=== PATIENT | male | born 1970 | race Caucasian/White ===

== ENCOUNTER → 2017-09-09 08:28 | Outpatient (CLI) | payer OTHER, SELFPAY | PROVIDERS: Family Provider Family Medicine; PCP Family Medicine; Visit Provider Family Medicine | DX: E11.9 Type 2 diabetes mellitus without complications (principal) | CPT/HCPCS: 36415; 84403 ==

== ENCOUNTER → 2017-10-12 07:14 | Outpatient (CLI) | payer OTHER, SELFPAY ==
[2017-10-12 08:35] LABS: Absolute Lymphocyte Count 2.59 X10^3/ul (0.83-4.51); Absolute Neutrophil Count 2.6 X10^3/uL (2.0-7.7); Basophil# 0.03 X10^3/uL; Basophil% 0.5 % (0-1); Eosinophil# 0.23 X10^3/uL; Eosinophils% 3.7 % (0-5); Hematocrit 47.4 % (40-54); Hemoglobin 15.9 g/dl (13.0-16.5); Lymphocyte # 2.59 X10^3/ul (4.0); Mean Corp Hgb Conc 33.5 g/gl (32-36); Mean Corpuscular Hgb 34.6 pg (27.0-32.0); Mean Platelet Vol. 9.9 fl (6.2-12.0); Monocyte# 0.68 X10^3/uL; Neutrophil % 42.3 % (47-70); Platelet Count 186 K/mm3 (150-450); RBC Distribution Width CV 13.4 % (11.6-14.6); RBC Distribution Width SD 49.8 fl (35.1-43.9); White Blood Count 6.2 K/mm3 (4.4-11.0)
[2017-10-12 09:00] LABS: POSITIVE COUNT NO; POSITIVE DIFFERENTIAL NO; POSITIVE MORPHOLOGY NO
[2017-10-12 09:11] LABS: ALB/GLOB Ratio 0.9 RATIO (0.9-2.4); AST(SGOT) 21 U/L (15-37); Alanine Aminotransfer ALT/SGPT 28 U/L (16-61); Albumin, Serum 3.5 g/dL (3.2-5.0); Alkaline Phosphatase 67 U/L (45-117); Anion Gap 6 (5-15); BUN 15 mg/dL (7-18); BUN/Creat Ratio 12.3 RATIO (10-20); Bilirubin, Direct 0.19 mg/dL (0.00-0.30); Calcium,Total 8.4 mg/dL (8.5-10.1); Chloride 100 mmol/L (98-107); Cholesterol 245 mg/dL (200); Creatinine, Serum 1.22 mg/dL (0.70-1.30); EST Glomerular Filtration Rate 67 mL/min (>60); Est Glom Filt Rate - Afr Amer 81 mL/min (>60); Globulin 3.8 g/dL (2.2-4.2); Glucose 144 mg/dL (74-106); High Density Lipoprotein 55 mg/dL; Potassium 4.3 mmol/L (3.5-5.1); Protein, Total 7.3 g/dL (6.4-8.2); Sodium Level 137 mmol/L (136-145); Triglycerides 205 mg/dL; Very Low Density Lipoprotein 41 mg/dL (5-40)
[2017-10-12 09:29] LABS: Microalbumin,Random Urine 11.2 mg/L (NO RANGE EST.); Microalbumin:Creatinine Ratio 5.3 mg/g CRE (<30 mg/g CRE)
== END ==
PROVIDERS: Family Provider Family Medicine; PCP Family Medicine; Visit Provider Family Medicine
DX: E11.9 Type 2 diabetes mellitus without complications (principal); L40.59 Other psoriatic arthropathy; Z79.899 Other long term (current) drug therapy; L40.8 Other psoriasis; M25.541 Pain in joints of right hand; M19.071 Primary osteoarthritis, right ankle and foot; K21.9 Gastro-esophageal reflux disease without esophagitis; F41.9 Anxiety disorder, unspecified
CPT/HCPCS: 36415; 80053; 80061; 82043; 82248; 82570; 84403; 85025

== ENCOUNTER → 2017-10-24 09:07 | Outpatient (CLI) | payer OTHER, SELFPAY | PROVIDERS: Family Provider Family Medicine; PCP Family Medicine; Visit Provider Family Medicine | DX: E29.1 Testicular hypofunction (principal) | CPT/HCPCS: 36415; 84403 ==

== ENCOUNTER → 2018-04-28 16:55 | Outpatient (CLI) | payer OTHER, SELFPAY ==
[2018-04-28 18:48] LABS: AST(SGOT) 17 U/L (15-37); Alanine Aminotransfer ALT/SGPT 24 U/L (16-61); Albumin, Serum 3.9 g/dL (3.2-5.0); Alkaline Phosphatase 75 U/L (45-117); Anion Gap 7 (5-15); BUN 13 mg/dL (7-18); BUN/Creat Ratio 12.4 RATIO (10-20); Bilirubin, Direct 0.21 mg/dL (0.00-0.30); Calcium,Total 9.2 mg/dL (8.5-10.1); Chloride 104 mmol/L (98-107); Cholesterol 175 mg/dL (200); Creatinine, Serum 1.05 mg/dL (0.70-1.30); EST Glomerular Filtration Rate 80 mL/min (>60); Est Glom Filt Rate - Afr Amer 96 mL/min (>60); Globulin 4.1 g/dL (2.2-4.2); Glucose 120 mg/dL (74-106); High Density Lipoprotein 63 mg/dL; Potassium 4.6 mmol/L (3.5-5.1); Sodium Level 139 mmol/L (136-145); Triglycerides 98 mg/dL
[2018-04-28 18:49] LABS: Very Low Density Lipoprotein 20 mg/dL (5-40)
== END ==
PROVIDERS: Family Provider Family Medicine; PCP Family Medicine; Visit Provider Family Medicine
DX: E11.9 Type 2 diabetes mellitus without complications (principal); E29.1 Testicular hypofunction
CPT/HCPCS: 36415; 80048; 80061; 80076; 84403

== ENCOUNTER → 2018-08-29 15:11 | Outpatient (CLI) | payer OTHER, SELFPAY ==
[2018-05-22 15:51] VITALS: BMI 28.5
== END ==
PROVIDERS: Family Provider Family Medicine; PCP Family Medicine; Referring Provider Otolaryngology; Visit Provider Otolaryngology
DX: J32.9 Chronic sinusitis, unspecified (principal)
CPT/HCPCS: 87070; 87205

== ENCOUNTER → 2019-02-02 09:24 | Outpatient (CLI) | payer OTHER, SELFPAY ==
[2018-12-07 14:49] VITALS: BMI 28.8
[2019-02-02 10:39] LABS: Microalbumin,Random Urine 5.3 mg/L (NO RANGE EST.)
[2019-02-02 10:57] LABS: AST(SGOT) 18 U/L (15-37); Alanine Aminotransfer ALT/SGPT 21 U/L (16-61); Albumin, Serum 3.4 g/dL (3.2-5.0); Alkaline Phosphatase 74 U/L (45-117); Anion Gap 4 (5-15); BUN 12 mg/dL (7-18); BUN/Creat Ratio 11.2 RATIO (10-20); Bilirubin, Direct 0.19 mg/dL (0.00-0.30); Calcium,Total 8.1 mg/dL (8.5-10.1); Chloride 107 mmol/L (98-107); Cholesterol 204 mg/dL (200); Creatinine, Serum 1.07 mg/dL (0.70-1.30); EST Glomerular Filtration Rate 78 mL/min (>60); Est Glom Filt Rate - Afr Amer 94 mL/min (>60); Globulin 3.5 g/dL (2.2-4.2); Glucose 135 mg/dL (74-106); High Density Lipoprotein 52 mg/dL; Potassium 3.9 mmol/L (3.5-5.1); Protein, Total 6.9 g/dL (6.4-8.2); Sodium Level 139 mmol/L (136-145); Triglycerides 129 mg/dL; Very Low Density Lipoprotein 26 mg/dL (5-40)
[2019-02-07 04:09] LABS: Alternaria tenuis <0.10 kU/L (Class 0); Ash, White <0.10 kU/L (Class 0); Aspergillus fumigatus <0.10 kU/L (Class 0); Bermuda Grass <0.10 kU/L (Class 0); Birch <0.10 kU/L (Class 0); Black Walnut 0.12 kU/L (Class 0/I); Cat Hair / Dander,Stand <0.10 kU/L (Class 0); Cedar, Mountain <0.10 kU/L (Class 0); Cladosporium herbarum <0.10 kU/L (Class 0); Cockroach, American <0.10 kU/L (Class 0); D farinae Mite <0.10 kU/L (Class 0); D pteronyssinus <0.10 kU/L (Class 0); Dog Epithelia <0.10 kU/L (Class 0); Elm, American White 0.13 kU/L (Class 0/I); Immunoglobulin E 23 IU/mL (6-495); Maple/Box Elder <0.10 kU/L (Class 0); Mulberry, White <0.10 kU/L (Class 0); Oak, White <0.10 kU/L (Class 0); Pecan <0.10 kU/L (Class 0); Penicillium Notatum <0.10 kU/L (Class 0); Pigweed, Rough <0.10 kU/L (Class 0); Ragweed, Short/Common <0.10 kU/L (Class 0); Russian Thistle <0.10 kU/L (Class 0); Sheep Sorrel <0.10 kU/L (Class 0); Sycamore, American <0.10 kU/L (Class 0); Timothy Grass <0.10 kU/L (Class 0)
[2019-02-07 11:15] LABS: Mouse Urine <0.10 kU/L (Class 0)
== END ==
PROVIDERS: Family Provider Family Medicine; PCP Family Medicine; Referring Provider Family Medicine; Visit Provider Family Medicine
DX: E11.9 Type 2 diabetes mellitus without complications (principal); J30.2 Other seasonal allergic rhinitis
CPT/HCPCS: 36415; 80048; 80061; 80076; 82043; 82570; 82785; 86003

== ENCOUNTER → 2019-07-12 20:22 | Outpatient (CLI) | payer OTHER, SELFPAY ==
[2018-12-07 14:49] VITALS: BMI 28.8
== END ==
PROVIDERS: Family Provider Family Medicine; PCP Family Medicine; Referring Provider Family Medicine; Visit Provider Family Medicine
DX: G47.30 Sleep apnea, unspecified (principal)
CPT/HCPCS: 95811

== ENCOUNTER → 2019-07-19 15:02 | Outpatient (CLI) | payer OTHER, SELFPAY ==
[2019-07-02 13:28] VITALS: BMI 28.2
[2019-07-19 14:19] VITALS: BMI 28.2
== END ==
PROVIDERS: Family Provider Family Medicine; PCP Family Medicine; Referring Provider Internal Medicine Cardiovascular Disease; Visit Provider Internal Medicine Cardiovascular Disease
DX: R07.9 Chest pain, unspecified (principal); E11.9 Type 2 diabetes mellitus without complications; E78.5 Hyperlipidemia, unspecified; I10 Essential (primary) hypertension
CPT/HCPCS: 93306; Q9957; A4216; C8929

== ENCOUNTER → 2019-07-30 09:16 | Outpatient (CLI) | payer OTHER, SELFPAY ==
[2019-07-02 13:28] VITALS: BMI 28.2
[2019-07-19 14:19] VITALS: BMI 28.2
--- NOTE | 2019-07-30 09:25 | STEWCON_ITS ---
Reason For Study: CHEST PAIN Stress Results Protocol: Stress Echocardiogram Maximum Predicted HR: 170 bpm Target HR: 145 bpm % Maximum Predicted HR: 96 % Heart Stage Duration Rate BP Comment (mm:ss) (bpm) 3 CC DILUTED DEFINITY USED, PT STATES IT IS CONSTANTLY BASELINE 68 124/80SORE AROUND L BREAST AREA LUIS PROTOCOL- STAGE 1 3:00 92 126/78NO SX LUIS PROTOCOL- STAGE 2 3:00 108 140/80NO SX LUIS PROTOCOL- STAGE 3 3:00 123 142/78SL SOB LUIS PROTOCOL- STAGE 4 3:00 164 150/82DYSPNEA, SORENESS IN CHEST UNCHANGED THRUOUT STRESS ECHO RECOVERY 88 130/82DYSPNEA RESOLVED, SORENESS REMAINS THE SAME Stress Duration: 12:00 mm:ss Maximum Stress HR: 164 bpm Baseline Echocardiogram Findings The estimated ejection fraction is 65 %. Stress Echo Wall motion Data Resting WM Intermediate WM Stress WM Resting Wall Motion Wall Motion Stress No regional wall motion No regional wall motion abnormalities noted. abnormalities noted. EKG Data The baseline ECG displays normal sinus rhythm. The patient exercised according to the regular Luis protocol for a total duration of 12:02. The maximum heart rate attained was 164 beats per minute. This was 96% of maximum predicted heart rate. The patient exercised into stage 5 of the Luis protocol. During stress, there were no ST or T wave changes noted to suggest ischemia. No clinical angina was noted. No arrhythmias noted. Interpretation Summary The estimated ejection fraction is 65 %. Normal, adequate, treadmill echocardiogram. Negative for ischemia by EKG and echocardiographic criteria. No anginal symptoms noted. No arrhythmias noted. Appropriate blood pressure response to exercise. Average exercise capacity for age. Test terminated due to dyspnea. Final LVEF is 75%. Decreased sensitivity due to poor echo windows requiring Definity agent. Patient tolerated the procedure well. No complications. The study was technically difficult. Contrast injection was performed. Ordering Physician: Chi Win MD Referring Physician: Chi Win Performed By: Laina Escalera RDCS, RVT
== END ==
PROVIDERS: Family Provider Family Medicine; PCP Family Medicine; Referring Provider Internal Medicine Cardiovascular Disease; Visit Provider Internal Medicine Cardiovascular Disease
DX: R07.9 Chest pain, unspecified (principal); I10 Essential (primary) hypertension; E78.5 Hyperlipidemia, unspecified; E11.9 Type 2 diabetes mellitus without complications
CPT/HCPCS: 93017; 93350; Q9957; A4216; C8928

== ENCOUNTER → 2019-08-13 08:10 | Outpatient (CLI) | payer OTHER, SELFPAY ==
[2019-07-19 14:19] VITALS: BMI 28.2
== END ==
PROVIDERS: PCP Family Medicine; Referring Provider Otolaryngology Otolaryngology/Facial Plastic Surgery; Visit Provider Otolaryngology Otolaryngology/Facial Plastic Surgery
DX: J01.90 Acute sinusitis, unspecified (principal)
CPT/HCPCS: 87070; 87205

== ENCOUNTER → 2019-10-12 10:51 | Outpatient (CLI) | payer OTHER, SELFPAY ==
[2019-08-31 08:41] VITALS: BMI 28.8
--- NOTE | 2019-10-12 10:54 | RAD_ITS ---
STUDY: X-RAY - RIGHT HAND REASON FOR EXAM: Male, 48 years old. Right hand pain and swelling -- no injury TECHNIQUE: 3 view(s) of the hand. COMPARISON: None. FINDINGS: Normal radiocarpal articulation. Normal distal radioulnar joint. Normal visualized carpal bones. Normal carpal articulations Normal carpometacarpal articulation of the thumb. Normal second through fifth carpometacarpal joints. Normal metacarpi. Degenerative changes at the second and third metacarpophalangeal joints. Normal interphalangeal joint of the thumb. Normal proximal and distal phalanges of the thumb. Normal metacarpophalangeal joints of the second through fifth fingers. Normal proximal and distal interphalangeal joints of the second through fifth fingers. Normal phalanges of the second through fifth fingers. Dorsal soft tissue swelling. RAD/Hand Min 3 Views IMPRESSION: Dorsal soft tissue swelling. Degenerative changes at the second and third metacarpal phalangeal joints. Electronically Signed: Herman Abdalla, at 11:06 EDT , Service support ,
[2019-10-12 12:45] LABS: Anion Gap 9 (5-15); BUN 13 mg/dL (7-18); BUN/Creat Ratio 12.7 RATIO (10-20); Calcium,Total 8.6 mg/dL (8.5-10.1); Chloride 106 mmol/L (98-107); Creatinine, Serum 1.02 mg/dL (0.70-1.30); EST Glomerular Filtration Rate 82 mL/min (>60); Est Glom Filt Rate - Afr Amer 99 mL/min (>60); Glucose 212 mg/dL (74-106); Potassium 3.6 mmol/L (3.5-5.1); Sodium Level 138 mmol/L (136-145)
== END ==
PROVIDERS: PCP Family Medicine; Referring Provider Family Medicine; Visit Provider Family Medicine
DX: M79.641 Pain in right hand (principal)
CPT/HCPCS: 36415; 73130; 80048; 84550

== ENCOUNTER → 2020-02-07 08:12 | Outpatient (CLI) | payer OTHER, SELFPAY ==
[2019-10-22 13:23] VITALS: BMI 28.8
--- NOTE | 2020-02-07 08:17 | RAD_ITS ---
STUDY: X-RAY - ABDOMEN/PELVIS REASON FOR EXAM: Male, 49 years old. ABD PAIN X 1 MONTH. HX OF IBS TECHNIQUE: AP supine and upright views of the abdomen and pelvis. COMPARISON: None. FINDINGS: Normal visualized lung bases. There is a moderate amount of colonic fecal material. There is no demonstrated free abdominal air. The visualized liver, spleen and kidneys are grossly normal in size and morphology. There is a 1 cm x 1 cm rounded calcification in the left upper quadrant. On prior CT scan of the abdomen, this is seen within the anterior pericardial fat on the left side. There is also evidence of a 1 cm well-defined calcification overlying the left 12th costovertebral angle.. Normal visualized osseous structures. RAD/Abd Inc Decub and/or Erect IMPRESSION: Moderate amount of fecal material is seen in the colon. Electronically Signed: Herman Abdalla, at 9:24 EDT , Service support ,
== END ==
PROVIDERS: PCP Family Medicine; Referring Provider Family Medicine; Visit Provider Family Medicine
DX: R10.9 Unspecified abdominal pain (principal)
CPT/HCPCS: 74019

== ENCOUNTER → 2020-02-11 08:53 | Outpatient (CLI) | payer OTHER, SELFPAY ==
[2019-10-22 13:23] VITALS: BMI 28.8
[2020-02-11 10:27] LABS: Anion Gap 4 (5-15); BUN 9 mg/dL (7-18); BUN/Creat Ratio 8.1 RATIO (10-20); Calcium,Total 8.2 mg/dL (8.5-10.1); Chloride 105 mmol/L (98-107); Cholesterol 222 mg/dL (200); Creatinine, Serum 1.11 mg/dL (0.70-1.30); EST Glomerular Filtration Rate 74 mL/min (>60); Est Glom Filt Rate - Afr Amer 90 mL/min (>60); Glucose 194 mg/dL (74-106); High Density Lipoprotein 55 mg/dL; Potassium 3.9 mmol/L (3.5-5.1); Sodium Level 139 mmol/L (136-145); Triglycerides 201 mg/dL; Very Low Density Lipoprotein 40 mg/dL (5-40)
== END ==
PROVIDERS: PCP Family Medicine; Referring Provider Family Medicine; Visit Provider Family Medicine
DX: E11.9 Type 2 diabetes mellitus without complications (principal)
CPT/HCPCS: 36415; 80048; 80061

== ENCOUNTER → 2020-05-21 17:47 | Outpatient (CLI) | payer OTHER, SELFPAY ==
[2020-05-14 14:59] VITALS: BMI 28.7
== END ==
PROVIDERS: PCP Family Medicine; Referring Provider Family Medicine; Visit Provider Family Medicine
DX: Z20.828 Contact with and (suspected) exposure to other viral communicable diseases (principal)
CPT/HCPCS: 87635; U0003

== ENCOUNTER → 2020-06-09 16:49 | Outpatient (CLI) | payer OTHER, SELFPAY ==
[2020-05-14 14:59] VITALS: BMI 28.7
== END ==
PROVIDERS: PCP Family Medicine; Referring Provider Otolaryngology; Visit Provider Otolaryngology
DX: J02.9 Acute pharyngitis, unspecified (principal)
CPT/HCPCS: 87070

== ENCOUNTER 2020-06-21 14:16 | Emergency (ER) | payer OTHER, SELFPAY ==
[2020-05-14 14:59] VITALS: BMI 28.7
[2020-06-21 14:17] VITALS: BP 137/91; PULSE 74; RESP 18; TEMP 36.3; O2SAT 100; BMI 27.3
--- NOTE | 2020-06-21 14:37 | EKG12_ITS ---
Test Reason : CP Blood Pressure : / mmHG Vent. Rate : 069 BPM Atrial Rate : 069 BPM P-R Int : 158 ms QRS Dur : 114 ms QT Int : 412 ms P-R-T Axes : 030 -34 000 degrees QTc Int : 441 ms Normal sinus rhythm Left axis deviation Right bundle branch block Abnormal ECG Confirmed by MARIAM PRETTY, JALEESA ([id number]), editor managing newspaper DAVID SUN ([id number]) on 06/30/2020 8:43:56 AM Referred By: SHEILA Confirmed By:RUBA BECERRA MD
--- NOTE | 2020-06-21 14:37 | ED.VIS.GEN ---
History of Present Illness Chief Complaint: Chest Pain Informant: Patient Narrative: 49-year-old male presenting with chest pain. He states that in the left parasternal area. He describes it as aching. He states it hurts to touch and when he takes a deep breath it hurts as well. He denies any fever, cough, chills. There is no radiation of the pain. He states he was lightheaded this morning but he states he is been lightheaded for years. He does not believe there is a change in this. - Past Medical History (1) Right bundle branch block Status: Chronic (2) Right bundle branch block Status: Chronic (3) Hypertension Status: Chronic (4) Hyperlipidemia Status: Chronic (5) Type 2 diabetes mellitus without complications Status: Chronic Past Medical History - Allergies and Home Meds Allergies/Adverse Reactions: Allergies amoxicillin [From Augmentin] Adverse Reaction (Verified 06/21/20 14:17) Diarrhea clavulanic acid [From Augmentin] Adverse Reaction (Verified 06/21/20 14:17) Diarrhea Primary Care Physician: Casey Valles MD [Primary Care Provider] - Prior records reviewed: Yes Past Medical History: - - Reviewed in problem list Surgical History: noncontributory Lives: Spouse/ Significant Other Smoking Status: Never smoker Alcohol: None Drugs: None Review of Systems General: Denies: Chills, Fever, Sweats Eyes: Denies: Visual changes - bilaterally, Diplopia ENT: Denies: Rhinorrhea, Sore throat Cardiovascular: Reports: Chest pain. Denies: Palpitations, Heart racing Respiratory: Denies: Dyspnea, Cough, Dyspnea on exertion Gastrointestinal: Denies: Abdominal pain, Nausea, Vomiting, Diarrhea, Melena, Hematochezia Genitourinary: Denies: Dysuria, Hematuria, Frequency Musculoskeletal: Denies: Back pain, Extremity Pain Skin: Denies: Rash, Wounds Neurological: Reports: - - Lightheadedness. Denies: Headache, Weakness, Numbness Physical Exam Vital Signs/Narrative: Vital Signs Temp Pulse Resp BP Pulse Ox 06/21/20 14:17 97.3 F L 74 18 137/91 H 100 Inital Vital Signs reviewed: Yes General: Well nourished, No Acute Distress Head: Normocephalic, Atraumatic Eyes: Perrl, EOMI ENT: Moist mucous membranes, No rhinorrhea Cardiovascular: Regular rate, Regular rhythm Respiratory: No distress, CTA bilaterally, Chest tenderness - Tenderness to palpation left side of sternum. No rash, ecchymosis, deformity, crepitance. Pain is also reproduced with movement. Extremities: Nontender, No edema Skin: Normal color, No rash, Cyanosis Neurological: Alert, Oriented x3 Psychological: Normal affect, Normal Mood Diagnostic/Tx/Re-eval - Rhythm Strip Rhythm Strip: Sinus Rhythm - EKG Initial EKG Interpretation: Sinus Rhythm, No Acute Injury Pattern, RBBB Prior: Unchanged Follow-up EKG Interpretation: Sinus Rhythm, No Acute Injury Pattern, RBBB Prior: Unchanged - Medical Decision Making 49-year-old male presenting with chest pain. He states that sharp and worse with movements. He has reproducible tenderness as well in the center of his chest. I feel this is most likely costochondritis however the patient has a heart score of three. Initial labs are within normal limits. Troponin is negative. D-dimer is negative. Chest x-ray is interpreted by myself and the radiologist is negative for acute process. EKG is sinus rhythm with a right bundle branch block without any new changes as interpreted by myself. Patient will have delta troponin EKG and if these are normal patient will be sent home. Patient felt much improvement with Toradol. Patient's delta EKG is unchanged as interpreted by myself. Delta troponin is negative. I feel patient is stable to be discharged home at this time. He is given return precautions. Impression: 1. Chest pain 2. Costochondritis ED Disposition - Plan for ED Patient: Disposition: Home or Assisted Living Instructions: ED Chest Wall Pain, Costochondritis, ED Chest Pain, Noncardiac Referrals: Casey Valles MD [Primary Care Provider] -
--- NOTE | 2020-06-21 14:45 | RAD_ITS ---
STUDY: X-RAY CHEST REASON FOR EXAM: Male, 49 years old. chest pain TECHNIQUE: AP COMPARISON: 01/08/2017 FINDINGS: EKG leads project over the chest. Fusion hardware of the lower cervical spine. The lungs are clear and expanded. There is no demonstrated pleural abnormality. Normal size heart. Normal mediastinum and cristina. Normal visualized pulmonary arteries. Normal visualized aortic arch and descending thoracic aorta. Normal visualized thoracic spine. Normal visualized ribs, clavicles, and shoulders. There is no demonstrated abnormality of the visualized soft tissue structures of the upper abdomen. RAD/Chest 1 View (Portable) IMPRESSION: Stable, nonacute portable x-ray examination of the chest. Electronically Signed: Mark Marino MD ([place]) at 14:54 EST , Service support ,
[2020-06-21 14:47] VITALS: BP 138/95; PULSE 72; RESP 23; O2SAT 98
[2020-06-21 14:52] LABS: Absolute Lymphocyte Count 1.48 X10^3/uL (0.83-4.51); Absolute Neutrophil Count 3.4 X10^3/uL (2.0-7.7); Basophil# 0.03 X10^3/uL; Basophil% 0.5 % (0-1); Eosinophil# 0.21 X10^3/uL; Eosinophils% 3.7 % (0-5); Hematocrit 48.9 % (40-54); Hemoglobin 16.3 g/dL (13.0-16.5); Lymphocyte # 1.48 X10^3/ul (4.0); Lymphocyte % 26.2 % (19-41); Mean Corp Hgb Conc 33.3 g/dL (32-36); Mean Corpuscular Hgb 34.2 pg (27.0-32.0); Mean Corpuscular Volume 102.7 fL (80-94); Mean Platelet Vol. 9.8 fl (6.2-12.0); Monocyte# 0.51 X10^3/uL; NRBC Flagged by Analyzer 0 % (0-5); Neutrophil # 3.37 X10^3/uL (2.7-7.7); Neutrophil % 59.7 % (47-70); Platelet Count 245 K/mm3 (150-450); RBC Distribution Width CV 11.9 % (11.6-14.6); RBC Distribution Width SD 45.2 fl (35.1-43.9); Red Blood Count 4.76 M/mm3 (4.6-6.2); White Blood Count 5.7 K/mm3 (4.4-11.0)
[2020-06-21] MEDS: Aspirin 81 MG TAB.CHEW 324 MG PO (14:55)
[2020-06-21 15:08] LABS: D-Dimer Quantitative (DVT/PE) 0.29 FEU/ug/m (0.27-0.49)
[2020-06-21 15:10] LABS: Anion Gap 3 (5-15); BUN 13 mg/dL (7-18); Calcium,Total 8.8 mg/dL (8.5-10.1); Chloride 108 mmol/L (98-107); Creatinine, Serum 1.08 mg/dL (0.70-1.30); EST Glomerular Filtration Rate 76 mL/min (>60); Est Glom Filt Rate - Afr Amer 93 mL/min (>60); Estimated Creatinine Clearance 80.92 ml/min; Glucose 143 mg/dL (74-106); Potassium 3.7 mmol/L (3.5-5.1); Sodium Level 140 mmol/L (136-145)
[2020-06-21 15:41] VITALS: BP 118/90; PULSE 70; RESP 19; O2SAT 95
[2020-06-21 16:05] VITALS: BP 121/95; PULSE 70; RESP 24; O2SAT 95
[2020-06-21] MEDS: Ketorolac 15 MG/ML Vial IM (16:06)
[2020-06-21 17:30] VITALS: BP 128/97; PULSE 65; RESP 22; O2SAT 95
--- NOTE | 2020-06-21 17:30 | EKG12_ITS ---
Test Reason : REPEAT Blood Pressure : / mmHG Vent. Rate : 062 BPM Atrial Rate : 062 BPM P-R Int : 174 ms QRS Dur : 130 ms QT Int : 432 ms P-R-T Axes : 031 -33 002 degrees QTc Int : 438 ms Normal sinus rhythm Left axis deviation Right bundle branch block Abnormal ECG Confirmed by MARIAM PRETTY, JALEESA ([id number]), script editor DAVID SUN ([id number]) on 06/30/2020 8:43:33 AM Referred By: JENNIFER Confirmed By:RUBA BECERRA MD
[2020-06-21 18:13] VITALS: BP 130/98; PULSE 65; RESP 18; O2SAT 94
== END 2020-06-21 18:33 | disposition home or self-care (01) ==
PROVIDERS: Emergency Provider Student in an Organized Health Care Education/Training Program; PCP Family Medicine
DX: R07.9 Chest pain, unspecified (principal); M94.0 Chondrocostal junction syndrome [Tietze]; E11.9 Type 2 diabetes mellitus without complications; E78.5 Hyperlipidemia, unspecified; I10 Essential (primary) hypertension; I45.10 Unspecified right bundle-branch block; Z88.0 Allergy status to penicillin; Z88.1 Allergy status to other antibiotic agents
CPT/HCPCS: 71045; 80048; 84484; 85025; 85379; 93005; 96372; 99283; A4216

== ENCOUNTER → 2020-11-26 14:25 | Outpatient (CLI) | payer OTHER, SELFPAY ==
[2020-11-26 17:39] LABS: Absolute Lymphocyte Count 1.23 X10^3/uL (0.83-4.51); Absolute Neutrophil Count 3.7 X10^3/uL (2.0-7.7); Basophil# 0.03 X10^3/uL; Basophil% 0.5 % (0-1); Eosinophil# 0.12 X10^3/uL; Eosinophils% 2.2 % (0-5); Hematocrit 46.1 % (40-54); Hemoglobin 15.3 g/dL (13.0-16.5); Lymphocyte # 1.23 X10^3/ul (0.83-4.51); Lymphocyte % 22.1 % (19-41); Mean Corp Hgb Conc 33.2 g/dL (32-36); Mean Corpuscular Hgb 33.5 pg (27.0-32.0); Mean Corpuscular Volume 100.9 fL (80-94); Mean Platelet Vol. 10.4 fl (6.2-12.0); NRBC Flagged by Analyzer 0 % (0-5); Neutrophil # 3.66 X10^3/uL (2.7-7.7); Neutrophil % 65.8 % (47-70); Platelet Count 233 K/mm3 (150-450); RBC Distribution Width CV 12.4 % (11.6-14.6); RBC Distribution Width SD 46.3 fl (35.1-43.9); Red Blood Count 4.57 M/mm3 (4.6-6.2); White Blood Count 5.6 K/mm3 (4.4-11.0)
[2020-11-26 18:52] LABS: Anion Gap 10 (5-15); BUN 15 mg/dL (7-18); BUN/Creat Ratio 13.9 RATIO (10-20); Calcium,Total 8.9 mg/dL (8.5-10.1); Chloride 108 mmol/L (98-107); Cholesterol 173 mg/dL (200); Creatinine, Serum 1.08 mg/dL (0.70-1.30); EST Glomerular Filtration Rate 76 mL/min (>60); Est Glom Filt Rate - Afr Amer 92 mL/min (>60); Glucose 182 mg/dL (74-106); High Density Lipoprotein 57 mg/dL; Potassium 3.7 mmol/L (3.5-5.1); Sodium Level 139 mmol/L (136-145); Thyroid Stim Hormone (TSH) 1.18 uIU/mL (0.358-3.74); Triglycerides 194 mg/dL; Very Low Density Lipoprotein 39 mg/dL (5-40)
== END ==
PROVIDERS: PCP Family Medicine; Referring Provider Family Medicine; Visit Provider Family Medicine
DX: E29.1 Testicular hypofunction (principal); E11.9 Type 2 diabetes mellitus without complications; R53.83 Other fatigue
CPT/HCPCS: 36415; 80048; 80061; 84403; 84443; 85025

== ENCOUNTER → 2021-01-16 11:01 | Outpatient (CLI) | payer OTHER, SELFPAY ==
[2020-12-24 05:48] VITALS: BMI 28.0
[2021-01-16 11:42] VITALS: BP 130/83; PULSE 75; RESP 16; TEMP 36.8; O2SAT 100; BMI 28.2
--- NOTE | 2021-01-16 12:05 | CT_ITS ---
STUDY: CT CERVICAL SPINE WITH INTRATHECAL CONTRAST (CERVICAL CT MYELOGRAM) REASON FOR EXAM: Male, 50 years old. Spinal stenosis. Prior anterior fusion at the C5-C6 and C6-C7 levels. RADIATION DOSAGE (If Supplied By Facility): CTDIvol = ( 26.48 ) mGy, DLP = ( 563.74 ) mGycm TECHNIQUE: Transaxial images were obtained following intrathecal administration of 15 ml of ISOVUE-M 300 contrast material, performed by Dr. Abdalla. Please refer to this physicians technical notes for procedural details. Coronal and sagittal reconstructions were obtained. Individualized dose optimization techniques were used for this CT. Injection Information: 15 cc of ISOVUE-M 300. COMPARISON: Comparison is made with prior mammogram done earlier in the day. FINDINGS: Normal craniovertebral junction. Normal anterior atlantoaxial articulation. Normal odontoid process. There is straightening of the normal cervical lordosis. Normal vertebral bodies and posterior osseous elements. C2-3: Mild degree of central disc bulge. Minimal deformity of the thecal sac centrally and anteriorly. No significant stenosis is seen. C3-4: Minimal anterior central disc bulge causing minimal deformity of the thecal sac. No significant stenosis is seen. C4-5: Moderate-sized central disc bulge. This causes a moderate degree of central canal stenosis. Mild degree of left neural foraminal stenosis. C5-6: The patient is status post anterior C5-C6 fusion. Anterior screw fixation is seen. Marked degree of disc space narrowing. Central posterior disc bulge causing deformity of the thecal sac. This is slightly worse towards the left side of the midline. C6-7: Status post anterior fusion. Disc space narrowing. Central posterior disc bulge causing mild degree of central canal stenosis. C7-T1: Normal endplates. Normal disc height and morphology. Normal bilateral uncovertebral and apophyseal joints. Normal central canal and bilateral intervertebral neural foramen. CT/Spine Cervical WITH Contrast IMPRESSION: Prior fusion at the C5-C6 and C6-C7 levels. Moderate degree of central canal stenosis at the C4-C5 level. Electronically Signed: Herman Abdalla MD at 13:25 EDT , Service support ,
--- NOTE | 2021-01-16 12:25 | RAD_ITS ---
PROCEDURE: CERVICAL MYELOGRAM DATE OF EXAMINATION: 01/16/2021. INDICATION: Male, 50 years old. Chronic neck pain. Prior fusion. PHYSICIAN: Herman Abdalla M.D. CONSENT: The patient''s history and physical findings were reviewed. The lumbar myelogram procedure was discussed with the patient prior to signing a consent. SEDATION: Local anesthesia with 3 mL of 1% lidocaine was used. FLUOROSCOPY TIME (if supplied): (2:15) minutes/seconds. Injection Information: 15 cc of ISOVUE-M 300 . Number of images obtained: 5 TECHNIQUE: Digital fluoroscopy was used to identify a safe approach for the cervical myelogram. The back was prepped and draped in usual fashion. Local anesthesia was utilized. Under fluoroscopic guidance a 22-gauge spinal needle was inserted into the spinal canal at the L2-L3 level. Clear spinal fluid was seen. 15 mL of Isovue 300 M was injected into the spinal canal. There is good opacification of the spinal fluid. The nerve root sheaths are asymmetrically identified. There is no extradural defects. The patient is status post anterior fusion at the C5-C6 and C6-C7 levels. RAD/Cervical Myelogram IMPRESSION: Normal lumbar and cervical myelogram. The patient tolerated the procedure well. A CT scan will follow. Electronically Signed: Herman Abdalla MD at 13:09 EDT , Service support ,
[2021-01-16] MEDS: Lidocaine 2% (5ml sdv) 5 ML VIAL.MPF INFILT (12:35)
[2021-01-16 13:00] VITALS: BP 123/85; PULSE 73; RESP 16; O2SAT 98
[2021-01-16 13:45] VITALS: BP 118/64; PULSE 78; RESP 16; O2SAT 100
== END | disposition home or self-care (01) ==
PROVIDERS: PCP Family Medicine; Referring Provider Orthopaedic Surgery; Visit Provider Orthopaedic Surgery
DX: T84.89XA Other specified complication of internal orthopedic prosthetic devices, implants and grafts, initial encounter (principal); M96.0 Pseudarthrosis after fusion or arthrodesis; M48.02 Spinal stenosis, cervical region; Z98.1 Arthrodesis status
CPT/HCPCS: 62302; 72126; Q9967

== ENCOUNTER 2021-04-16 05:14 | Inpatient (IN) | payer OTHER, SELFPAY ==
[2021-04-16] VITALS (14 sets, daily range): BP systolic 106–126; BP diastolic 70–85; PULSE 64–81; RESP 16–24; TEMP 36.7–37.2; O2SAT 86–97; BMI 28.8; BMI 28.0
--- NOTE | 2021-04-16 05:47 | RAD_ITS ---
STUDY: X-RAY CHEST REASON FOR EXAM: Male, 50 years old. dyspnea TECHNIQUE: Single AP portable view of the chest. COMPARISON: 06/21/2020 FINDINGS: Bilateral scattered airspace opacities. Low lung volume. A component of atelectasis left and right lung periphery. There is no demonstrated pleural abnormality. Normal size heart. Normal mediastinum and cristina. Normal visualized pulmonary arteries. Normal visualized aortic arch and descending thoracic aorta. Prior lower cervical fusion. Normal visualized ribs, clavicles, and shoulders. There is no demonstrated abnormality of the visualized soft tissue structures of the upper abdomen. RAD/Chest 1 View (Portable) IMPRESSION: Lateral air space disease/infiltrates. Imaging features can be seen with covid 19 pneumonia, but are nonspecific and may occur with a variety of infectious and noninfectious processes. Electronically Signed: Isabel Lundberg MD at 6:49 EDT , Service support ,
--- NOTE | 2021-04-16 05:48 | ED.VIS.DYS ---
HPI History of Present Illness Chief Complaint: Shortness of Breath Detail of Chief Complaint: Cough and shortness of breath that started 6 days ago Narrative Narrative: Patient presents with cough and shortness of breath x6 days. Patient states that he had gotten his Covid vaccine second dose 6 days ago. Patient complains of fever and body aches. He has had a dry cough. He complains of shortness of breath with activity. He denies any chest pain. 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 Patient has history of diabetes and hypertension and high cholesterol. [facility] Medical History (Updated 04/16/21 @ 07:[address] Kassidy Velazquez, DO) Hyperlipidemia Hypertension Psoriatic arthritis Right bundle branch block Type 2 diabetes mellitus without complications Home Medications omeprazole 40 mg capsule,delayed release 40 mg PO DAILY 05/19/18 [History Last Taken Unknown] metformin 1,000 mg tablet 1,000 mg PO DAILY 30 Days #60 tab 05/22/18 [History Last Taken Unknown] triamcinolone acetonide 55 mcg nasal spray aerosol 2 spray INTRANASAL DAILY PRN 12/07/18 [History Last Taken Unknown] gemfibrozil 600 mg tablet 600 mg PO BID #180 tab 07/02/19 [Rx Last Taken Unknown] pravastatin 20 mg tablet 20 mg PO DAILY #90 tab 07/02/19 [Rx Last Taken Unknown] glimepiride 2 mg tablet 1 mg PO QAM tab 07/18/19 [History Last Taken Unknown] dapagliflozin 10 mg tablet 10 mg PO DAILY tab 05/14/20 [History Last Taken Unknown] pseudoephedrine HCl 240 mg tablet,extended release 24 hr 240 mg PO DAILY PRN tab 05/14/20 [History Last Taken Unknown] losartan 25 mg tablet 25 mg PO DAILY #90 tab 07/21/20 [Rx Last Taken Unknown] Allergy/AdvReac Type Severity Reaction Status Date / Time amoxicillin [From Augmentin] AdvReac Diarrhea Verified 04/16/21 05:17 clavulanic acid AdvReac Diarrhea Verified 04/16/21 05:17 [From Augmentin] Family History Father CAD (coronary artery disease) FROM [place] AGE 65 Mother Diabetes Surgical History History of penile implant (~09/2019) History of sinus surgery Social History Smoking Status: Never smoker alcohol intake: current substance use type: does not use ROS ROS ED Constitutional Constitutional ED: Reports systems reviewed and no addt'l complaints, except as documented; Denies body ache(s), change in weight or chills Eyes Eyes: Denies acute decrease in peripheral vision, change in vision, double vision or loss of vision ENT ENT ED: Reports none and sore throat; Denies ear pain, lip swelling, loss taste/smell, neck pain or otalgia Cardiovascular Cardiovascular: Reports none; Denies abdominal pain, chest pain with activity, leg edema, lightheadedness, palpitations, rapid heart rate or syncope Respiratory/Chest Respiratory/Chest: Reports none, cough and dyspnea; Denies change in mental status, dry cough, hemoptysis, shortness of breath at rest or shortness of breath with exertion Gastrointestinal Gastrointestinal: Reports none; Denies abdominal pain, change in stool character, diarrhea, hematemesis, hematochezia, melena, rectal bleeding or vomiting Genitourinary Genitourinary ED: Reports none; Denies abdominal discomfort, anuria, dysuria, genital pain or polyuria Musculoskeletal Musculoskeletal: Reports none and myalgias; Denies arthralgias, back pain, difficulty walking, extremity pain or muscle weakness Integumentary Reports none; Denies abscess or rash Neurologic Neurologic: Reports none; Denies abnormal gait, confusion, focal weakness, frequent falls, headache(s), loss of vision, numbness, paresthesias, radicular pain, vertigo or weakness Psychiatric Psychiatric: Reports systems reviewed and no addt'l complaints, except as documented and none; Denies behavioral changes, confusion, difficulty concentrating, hallucinations, suicidal ideation, tactile hallucinations or visual hallucinations Endocrine Endocrinology: Denies none, cold intolerance, excessive sweating, fatigue or heat intolerance Hematologic/Lymphatic Hematologic/Lymphatic: Reports none; Denies anemia, easy bleeding or easy bruising Allergic/Immunologic Allergic/Immunologic ED: Denies as per HPI, none, lip swelling, mouth swelling, throat swelling, tongue swelling or hives EXAM Physical Exam Const Vital Signs: 04/16/21 05:15 04/16/21 05:17 04/16/21 05:18 Temperature 98.9 F 98.9 F Temperature Source Oral Oral Pulse Rate 81 80 Respiratory Rate 24 H 24 H Respiratory Effort Short of Breath Respiratory Depth Normal Respiratory Pattern Normal Blood Pressure 126/85 H 126/85 H Blood Pressure Mean 98 98 Pulse Ox 86 86 Oxygen Delivery Method Room Air Room Air Room Air Oxygen Flow Rate (L/min) 2 2 Fraction of Inspired Oxygen (FIO2) 94 95 Positive well nourished and well developed General Appearance ED: well developed and NAD HEENT Reports TM's clear and moist mucous membranes normocephalic and atraumatic; Negative for trauma or tenderness Tympanic Membrane ED: Yes TM's clear Eyes PERRL and EOMs intact bilaterally General Eye ED: Negative for pale conjunctiva or scleral icterus Neck no lymphadenopathy, supple and no JVD General: Negative for tenderness Chest Wall inspection of chest normal and palpation of chest normal Chest: Negative for tenderness Resp normal respiratory effort and clear to auscultation bilaterally Effort and Inspection: Negative for respiratory distress or pain with movement Auscultation: Negative for rhonchi, wheezes or diminished lung sounds Cardio regular rate, regular rhythm, S1 normal heart sound, S2 normal heart sound and no murmurs Peripheral Pulses: pulses 2+ throughout GI normal to inspection, nondistended, normoactive bowel sounds, soft to palpation, non-tender, non-distended and no masses Back/Spine no CVA tenderness and no thoracic nor lumbar tenderness Extremity normal to inspection General Extremety ED: Negative for edema General Extremity: Negative for edema Neuro oriented x3, CN's II-XII intact bilaterally, no sensory deficits noted and gait normal Sensorium / Orientation: awake, alert, oriented to person, oriented to place and oriented to time Motor Exam: strength 5/5 throughout and strength abnormal Psych mental status grossly normal Skin no rashes or lesions noted and no wounds MDM MDM MDM Narrative Medical decision making narrative: IV line established on arrival. Patient placed on 2 L nasal cannula O2. Work-up consistent with COVID-19 pneumonia. Patient was started on Decadron 6 mg p.o. Case discussed with hospitalist will evaluate patient for admission Lab Data Attestation: I reviewed the patient's lab results. Labs: Laboratory Results - last 24 hr 04/16/21 04/16/21 04/16/21 05:30 05:30 05:57 WBC 6.9 RBC 4.68 Hgb 15.8 Hct 46.8 MCV 100.0 H MCH 33.8 H MCHC 33.8 RDW Std Deviation 46.5 H RDW Coeff of Hernán 12.7 Plt Count 165 MPV 9.9 Immature Gran % (Auto) 0.900 Neut % (Auto) 84.7 H Lymph % (Auto) 9.8 L [place] % (Auto) 4.2 Eos % (Auto) 0.1 Baso % (Auto) 0.3 Absolute Neuts (auto) 5.9 Absolute Lymphs (auto) 0.68 L Nucleated RBC % 0 D-Dimer Quant (PE/DVT) 0.97 H* Sodium 135 L Potassium 3.1 L Chloride 97 L Carbon Dioxide 30.0 Anion Gap 8 BUN 13 Creatinine 1.16 Estim Creat Clear Calc 72.07 Est GFR (MDRD) Af Amer 85 Est GFR (MDRD) Non-Af 70 BUN/Creatinine Ratio 11.2 Glucose 267 H Lactic Acid Calcium 8.8 04/16/21 05:57 WBC RBC Hgb Hct MCV MCH MCHC RDW Std Deviation RDW Coeff of Hernán Plt Count MPV Immature Gran % (Auto) Neut % (Auto) Lymph % (Auto) [place] % (Auto) Eos % (Auto) Baso % (Auto) Absolute Neuts (auto) Absolute Lymphs (auto) Nucleated RBC % D-Dimer Quant (PE/DVT) Sodium Potassium Chloride Carbon Dioxide Anion Gap BUN Creatinine Estim Creat Clear Calc Est GFR (MDRD) Af Amer Est GFR (MDRD) Non-Af BUN/Creatinine Ratio Glucose Lactic Acid 1.2 Calcium Radiography Chest X-Ray - ED: 1 View Diagnostic Testing: Clinical Impression(s) from Imaging Studies Chest X-Ray 04/16/21 05:47 IMPRESSION: Lateral air space disease/infiltrates. Imaging features can be seen with covid 19 pneumonia, but are nonspecific and may occur with a variety of infectious and noninfectious processes. Electronically Signed: Isabel Lundberg MD at 6:49 EDT , Service support , Chest CTA 04/16/21 06:38 IMPRESSION: Normal CTA chest examination, without a demonstrated pulmonary embolism or arterial dissection. Significant bilateral airspace disease/infiltrates. Imaging features can be seen with covid 19 pneumonia, but are nonspecific and may occur with a variety of infectious and noninfectious processes. Mediastinal and hilar lymph nodes likely reactive in nature, follow-up recommended. Electronically Signed: Isabel Lundberg MD at 7:32 EDT , Service support , 1 view chest x-ray obtained interpreted by myself as bilateral infiltrates. Radiology in agreement. Discharge Plan Triage Chief Complaint: Shortness of Breath ED Provider: Kassidy Velazquez Dx/Rx/DC Orders Clinical Impression: Pneumonia due to 2019 novel coronavirus, Hypoxemia Prescriptions: No Action metformin 1,000 mg tablet 1,000 mg PO DAILY 30 Days Qty: 60 RF: 0 omeprazole 40 mg capsule,delayed release(DR/EC) 40 mg PO DAILY RF: 0 triamcinolone acetonide [Nasacort] 55 mcg aerosol,spray 2 spray INTRANASAL DAILY PRN (Reason: rhinitis) RF: 0 Farxiga 10 mg tablet 10 mg PO DAILY RF: 0 gemfibrozil 600 mg tablet 600 mg PO BID Qty: 180 RF: 3 pravastatin 20 mg tablet 20 mg PO DAILY Qty: 90 RF: 3 glimepiride 2 mg tablet 1 mg PO QAM RF: 0 pseudoephedrine HCl 240 mg tablet extended release 24 hr 240 mg PO DAILY PRN (Reason: nasal congestion) RF: 0 losartan 25 mg tablet 25 mg PO DAILY Qty: 90 RF: 3 Primary Care Provider: Casey Valles Referrals: Casey Valles MD [Primary Care Provider] - Disposition Disposition: Acute Care Hospital [facility]
[2021-04-16 06:07] LABS: Absolute Lymphocyte Count 0.68 X10^3/uL (0.83-4.51); Absolute Neutrophil Count 5.9 X10^3/uL (2.0-7.7); Basophil# 0.02 X10^3/uL; Basophil% 0.3 % (0-1); Eosinophil# 0.01 X10^3/uL; Eosinophils% 0.1 % (0-5); Hematocrit 46.8 % (40-54); Hemoglobin 15.8 g/dL (13.0-16.5); Lymphocyte # 0.68 X10^3/ul (0.83-4.51); Lymphocyte % 9.8 % (19-41); Mean Corp Hgb Conc 33.8 g/dL (32-36); Mean Corpuscular Hgb 33.8 pg (27.0-32.0); Mean Platelet Vol. 9.9 fl (6.2-12.0); Monocyte# 0.29 X10^3/uL; Monocyte% 4.2 % (0-10); NRBC Flagged by Analyzer 0 % (0-5); Neutrophil # 5.88 X10^3/uL (2.7-7.7); Neutrophil % 84.7 % (47-70); Platelet Count 165 K/mm3 (150-450); RBC Distribution Width CV 12.7 % (11.6-14.6); RBC Distribution Width SD 46.5 fl (35.1-43.9); Red Blood Count 4.68 M/mm3 (4.6-6.2); White Blood Count 6.9 K/mm3 (4.4-11.0)
[2021-04-16 06:27] LABS: Anion Gap 8 (5-15); BUN 13 mg/dL (7-18); BUN/Creat Ratio 11.2 RATIO (10-20); Calcium,Total 8.8 mg/dL (8.5-10.1); Chloride 97 mmol/L (98-107); Creatinine, Serum 1.16 mg/dL (0.70-1.30); EST Glomerular Filtration Rate 70 mL/min (>60); Est Glom Filt Rate - Afr Amer 85 mL/min (>60); Estimated Creatinine Clearance 72.07 ml/min; Glucose 267 mg/dL (74-106); Potassium 3.1 mmol/L (3.5-5.1); Sodium Level 135 mmol/L (136-145)
[2021-04-16 06:37] LABS: D-Dimer Quantitative (DVT/PE) 0.97 FEU/ug/m (0.27-0.49)
--- NOTE | 2021-04-16 06:38 | CT_ITS ---
STUDY: CTA CHEST REASON FOR EXAM: Male, 50 years old. elevated d-dimer RADIATION DOSAGE (If Supplied By Facility): CTDIvol = ( 14.68 ) mGy, DLP = ( 456.54 ) mGycm TECHNIQUE: The examination was performed with the intravenous administration of IV 100mL Isovue-370. Post-processing of the angiographic images was performed, with multiplanar reformation and 3D reconstruction. Individualized dose optimization techniques were used for this CT. COMPARISON: Chest x-ray 04/16/2021 FINDINGS: Normal enhancement of the main pulmonary artery and right and left pulmonary arteries. Normal enhancement of the bilateral peripheral pulmonary arteries. There is no demonstrated pulmonary embolism. Normal thoracic aorta and visualized great vessels. There is no demonstrated aortic dissection. Normal heart and pericardium. Mildly enlarged lymph nodes in the bilateral paratracheal space, aortopulmonary space, subcarinal with borderline sized hilar lymph nodes. Normal hilar regions. Normal visualized trachea and bronchi. The lungs are well expanded. Large area of bilateral airspace opacification, groundglass opacities with relative sparing of the right middle lobe, superior segment of the bilateral lower lobes and lingula. Mosaic calcification left posterior lower pleura.. Normal chest wall structures. Normal osseous structures. Remote lower cervical fusion. Normal visualized upper abdomen. CT/CTA Chest W/WO Contrast IMPRESSION: Normal CTA chest examination, without a demonstrated pulmonary embolism or arterial dissection. Significant bilateral airspace disease/infiltrates. Imaging features can be seen with covid 19 pneumonia, but are nonspecific and may occur with a variety of infectious and noninfectious processes. Mediastinal and hilar lymph nodes likely reactive in nature, follow-up recommended. Electronically Signed: Isabel Lundberg MD at 7:32 EDT , Service support ,
[2021-04-16 06:48] LABS: Lactic Acid 1.2 mmol/L (0.4-1.9)
[2021-04-16] MEDS: dexAMETHasone 4 MG Tablet 6 MG PO (06:59)
[2021-04-16] MEDS: 0.9% Normal Saline 1,000 ML 150 ML IV ×3 (06:59→23:07)
--- NOTE | 2021-04-16 07:28 | HP.PCM.HOS_ITS ---
HPI - General General Date of Admission: 04/16/21 HPI Narrative DUARTE MARRERO, is a 50 M with a PMH as outlined who presents with a complaint of shortness of breath which started ~6 days prior to admission. He had associated cough, fever and body aches. He was saturating at 86% on room air. He had his second dose of COVID vaccine ~ 6 days ago. He denied any nausea or vomiting. Review of systems is otherwise negative. Vitals showed temp of 98.9F, with VT of 80, BP of 126/85, and RR of 24. He was on 2L of oxygen by nasal canula. Labs showed wbc of 6.9, Hb of 15.8, platelets of 165 and D dimer of 0.97. Chemistry showed sodium of 135, with K of 3.1 and bicarb of 30, with glucose of 257. Covid [address] chest showed bilateral peripheral infiltrates suggestive of covid. He is being admitted to be managed for acute hypoxic respiratory failure due to covid 19 pneumonia. [facility] Medical History (Updated 04/16/21 @ 09:35 by Pamela Olmos) Alcohol abuse CPAP (continuous positive airway pressure) dependence GERD (gastroesophageal reflux disease) Hyperlipidemia Hypertension Psoriatic arthritis Right bundle branch block Sleep apnea Type 2 diabetes mellitus without complications Home Medications omeprazole 40 mg capsule,delayed release 40 mg PO DAILY 05/19/18 [History Last Taken Unknown] metformin 1,000 mg tablet 1,000 mg PO DAILY 30 Days #60 tab 05/22/18 [History Last Taken Unknown] triamcinolone acetonide 55 mcg nasal spray aerosol 2 spray INTRANASAL DAILY PRN 12/07/18 [History Last Taken Unknown] gemfibrozil 600 mg tablet 600 mg PO BID #180 tab 07/02/19 [Rx Last Taken Unknown] pravastatin 20 mg tablet 20 mg PO DAILY #90 tab 07/02/19 [Rx Last Taken Unknown] glimepiride 2 mg tablet 1 mg PO QAM tab 07/18/19 [History Last Taken Unknown] dapagliflozin 10 mg tablet 10 mg PO DAILY tab 05/14/20 [History Last Taken Unknown] pseudoephedrine HCl 240 mg tablet,extended release 24 hr 240 mg PO DAILY PRN tab 05/14/20 [History Last Taken Unknown] losartan 25 mg tablet 25 mg PO DAILY #90 tab 07/21/20 [Rx Last Taken Unknown] Allergy/AdvReac Type Severity Reaction Status Date / Time amoxicillin [From Augmentin] AdvReac Diarrhea Verified 04/16/21 09:29 clavulanic acid AdvReac Diarrhea Verified 04/16/21 09:29 [From Augmentin] Family History Father CAD (coronary artery disease) FROM [place] AGE 65 Mother Diabetes Surgical History History of penile implant (~09/2019) History of sinus surgery Social History Smoking Status: Never smoker alcohol intake: current substance use type: does not use ROS Constitutional Constitutional: Reports chills, fatigue, malaise and weakness; Denies anorexia, change in weight or fever(s) Eyes Eyes: Denies change in vision ENT HEENT: Denies dysphagia, headache(s), nasal discharge or sore throat Cardiovascular Cardiovascular: Reports dyspnea on exertion; Denies chest pain, lightheadedness, orthopnea, palpitations, paroxysmal nocturnal dyspnea, rapid heart rate or syncope Respiratory/Chest Respiratory/Chest: Reports cough, dyspnea, productive cough, shortness of breath at rest and shortness of breath with exertion Gastrointestinal Gastrointestinal: Denies abdominal pain, coffee ground emesis, diarrhea, hematochezia, loose stools, melena, nausea or vomiting Genitourinary Genitourinary: Denies burning urination, dysuria, urinary frequency or urinary incontinence Musculoskeletal Musculoskeletal: Denies back pain or joint stiffness Neurologic Neurologic: Denies confusion, focal weakness, numbness, seizure-like activity or seizures Psychiatric Psychiatric: Denies anxiety or depression Endocrine Endocrinology: Reports change in body appearance Hematologic/Lymphatic Hematologic/Lymphatic: Denies anemia Allergic/Immunologic Allergic/Immunologic: Denies asthma Vital Signs Vital Signs Vital Signs: 04/16/21 05:15 04/16/21 05:17 04/16/21 05:18 Temperature 98.9 F 98.9 F Temperature Source Oral Oral Pulse Rate 81 80 Respiratory Rate 24 H 24 H Respiratory Effort Short of Breath Respiratory Depth Normal Respiratory Pattern Normal Blood Pressure 126/85 H 126/85 H Blood Pressure Mean 98 98 Pulse Ox 86 86 Oxygen Delivery Method Room Air Room Air Room Air Oxygen Flow Rate (L/min) 2 2 Fraction of Inspired Oxygen (FIO2) 94 95 Weight Weight: 190 lb Body Mass Index (BMI) 28.8 Physical Exam Const alert, oriented x3 and healthy appearing General Appearance: cooperative HEENT normocephalic, head/scalp atraumatic and moist oral mucous membranes Eyes PERRL, EOMs intact bilaterally and conjunctivae normal Neck no lymphadenopathy Resp Resp Narrative: diminished breath sounds bibasally, no wheezes or crackles. On 2L of oxygen by nasal canula Cardio regular rate, regular rhythm, S1 normal heart sound, S2 normal heart sound and no murmurs GI normal to inspection, nondistended, normoactive bowel sounds, soft to palpation and non-tender Extremity normal to inspection, full ROM and no clubbing, cyanosis or edema Peripheral Pulses: Yes pulses 2+ throughout Skin no rashes or lesions noted Neuro oriented x3, CN's II-XII intact bilaterally and moves all extremities Sensorium / Orientation: awake and alert Psych affect normal Results Lab / Micro Data Result Diagrams: 04/17/21 05:42 04/17/21 05:42 Labs: Laboratory Results - last 24 hr 04/16/21 05:30: WBC 6.9, RBC 4.68, Hgb 15.8, Hct 46.8, MCV 100.0 H, MCH 33.8 H, MCHC 33.8, RDW Std Deviation 46.5 H, RDW Coeff of Hernán 12.7, Plt Count 165, MPV 9.9, Immature Gran % (Auto) 0.900, Neut % (Auto) 84.7 H, Lymph % (Auto) 9.8 L, [place] % (Auto) 4.2, Eos % (Auto) 0.1, Baso % (Auto) 0.3, Absolute Neuts (auto) 5.9, Absolute Lymphs (auto) 0.68 L, Nucleated RBC % 0 04/16/21 05:30: Sodium 135 L, Potassium 3.1 L, Chloride 97 L, Carbon Dioxide 30.0, Anion Gap 8, BUN 13, Creatinine 1.16, Estim Creat Clear Calc 72.07, Est GFR (MDRD) Af Amer 85, Est GFR (MDRD) Non-Af 70, BUN/Creatinine Ratio 11.2, Glucose 267 H, Calcium 8.8 04/16/21 05:57: D-Dimer Quant (PE/DVT) 0.97 H* 04/16/21 05:57: Lactic Acid 1.2 Micro: Microbiology 04/16/21 Unknown Nasal Secretion SARS-CoV-2 Antigen (Rapid) - Final SARS-CoV-2 (COVID 19) Radiology Impression Chest X-Ray 04/16/21 05:47 IMPRESSION: Lateral air space disease/infiltrates. Imaging features can be seen with covid 19 pneumonia, but are nonspecific and may occur with a variety of infectious and noninfectious processes. Electronically Signed: Isabel Lundberg MD at 6:49 EDT , Service support , Assessment & Plan Assessment/Plan (1) Pneumonia due to 2019 novel coronavirus: PLAN: #Acute hypoxic respiratory failure due to COVID 19 pneumonia * admit to med surg on telemetry * start on remdesivir and decadron * Received 2nd dose of covid vaccine 6 days ago * breathing treatment with bronchodilators. * Titrate oxygen to maintain sats >90% * #COVID 19 pneumonia: as above #Elevated D dimer: * CTA negative for PE, but showed bilateral airspace disease. * likely due to covid. #Hypertension: on losartan #Type 2 diabetes mellitus:on dapagliflozin, glimepiride and metformin. ISS. Accuchecks ACHS #Hyperlipidemia: on statin. DVT prophylaxis: lovenox. Code status; full code. * Patient counseled extensively about different types of CODE STATUS including full code, DNR CCA and DNR CCA. Patient elects to be full code. Total [id number] time 17 minutes. Charges/Coding Visit Charges Inpatient E&M: 43212 Init Hosp L3 Procedures Hospitalists Procedures: 51652 Advncd Care Plan 30 Min
--- NOTE | 2021-04-16 09:36 | PCS.PANDOC ---
PANDEMIC DOCUMENTATION INITIATED: Date: 02/23/2021 Time: 190
[2021-04-16 10:00] LABS: Fibrinogen 855 mg/dl (203-444)
[2021-04-16 10:10] LABS: Procalcitonin 0.52 ng/mL (0.00-0.09)
[2021-04-16 10:38] LABS: Alkaline Phosphatase 67 U/L (45-117); CPK Total, Creatine Kinase 226 U/L (39-308); LDH 533 U/L (87-241)
[2021-04-16] MEDS: Fluticasone 0.05% 1 SPRAY NASAL.SRY 2 SPRAY NASAL (10:47)
[2021-04-16] MEDS: Enoxaparin 30 MG/0.3 ML Syringe SC ×2 (10:47→21:29)
[2021-04-16] MEDS: Empagliflozin 25 MG Tablet PO (10:48)
[2021-04-16] MEDS: Glimepiride 1 MG Tablet PO (10:48)
[2021-04-16] MEDS: Gemfibrozil 600 MG Tablet PO ×2 (10:48→21:29)
[2021-04-16] MEDS: Pantoprazole Sodium 40 MG Tablet PO (10:48)
[2021-04-16] MEDS: Pravastatin 20 MG Tablet PO (10:48)
[2021-04-16] MEDS: Losartan Potassium 25 MG Tablet PO (10:48)
[2021-04-16 10:57] LABS: BNP,B-Type NATRIURETIC PEPTIDE 24.3 pg/mL (0-100)
[2021-04-16] MEDS: Insulin Lispro 100 UNIT/ML INSULN.PEN SC ×3 (11:24→21:30)
[2021-04-16 11:36] LABS: Bedside Glucose 290 mg/dL (70-110)
[2021-04-16 18:51] LABS: Bedside Glucose 252 mg/dL (70-110)
[2021-04-16 21:20] LABS: Bedside Glucose 227 mg/dL (70-110)
[2021-04-17] VITALS (11 sets, daily range): BP systolic 103–126; BP diastolic 72–86; PULSE 46–80; RESP 18–20; TEMP 36.5–36.8; O2SAT 91–96
[2021-04-17] MEDS: 0.9% Normal Saline 1,000 ML 150 ML IV (05:50)
[2021-04-17 06:50] LABS: Bedside Glucose 159 mg/dL (70-110)
[2021-04-17 06:57] LABS: Absolute Lymphocyte Count 0.81 X10^3/uL (0.83-4.51); Absolute Neutrophil Count 5.9 X10^3/uL (2.0-7.7); Basophil# 0.01 X10^3/uL; Basophil% 0.1 % (0-1); Hematocrit 41.6 % (40-54); Hemoglobin 13.9 g/dL (13.0-16.5); Lymphocyte # 0.81 X10^3/ul (0.83-4.51); Lymphocyte % 11.3 % (19-41); Mean Corp Hgb Conc 33.4 g/dL (32-36); Mean Corpuscular Hgb 33.5 pg (27.0-32.0); Mean Corpuscular Volume 100.2 fL (80-94); Mean Platelet Vol. 10.4 fl (6.2-12.0); Monocyte# 0.42 X10^3/uL; Monocyte% 5.8 % (0-10); NRBC Flagged by Analyzer 0 % (0-5); POSITIVE MORPHOLOGY YES; Platelet Count 185 K/mm3 (150-450); RBC Distribution Width CV 12.5 % (11.6-14.6); RBC Distribution Width SD 46.8 fl (35.1-43.9); Red Blood Count 4.15 M/mm3 (4.6-6.2); White Blood Count 7.2 K/mm3 (4.4-11.0)
[2021-04-17 07:02] LABS: Differential Indicated SCAN CRITERIA MET
[2021-04-17 07:13] LABS: Atypical Lymphocyte RARE %
[2021-04-17 07:32] LABS: ALB/GLOB Ratio 0.5 RATIO (0.9-2.4); AST(SGOT) 32 U/L (15-37); Alanine Aminotransfer ALT/SGPT 18 U/L (16-61); Alkaline Phosphatase 60 U/L (45-117); Anion Gap 9 (5-15); BUN 20 mg/dL (7-18); BUN/Creat Ratio 20.1 RATIO (10-20); Calcium,Total 8.1 mg/dL (8.5-10.1); Chloride 107 mmol/L (98-107); Creatinine, Serum 0.99 mg/dL (0.70-1.30); EST Glomerular Filtration Rate 84 mL/min (>60); Est Glom Filt Rate - Afr Amer 102 mL/min (>60); Estimated Creatinine Clearance 84.44 ml/min; Globulin 4.3 g/dL (2.2-4.2); Glucose 174 mg/dL (74-106); Potassium 3.2 mmol/L (3.5-5.1); Protein, Total 6.3 g/dL (6.4-8.2); Sodium Level 141 mmol/L (136-145)
[2021-04-17] MEDS: Insulin Lispro 100 UNIT/ML INSULN.PEN SC ×4 (07:53→21:47)
[2021-04-17] MEDS: dexAMETHasone 10 MG/ML Vial 6 MG IV (07:54)
[2021-04-17] MEDS: Losartan Potassium 25 MG Tablet PO (07:54)
[2021-04-17] MEDS: Pravastatin 20 MG Tablet PO (07:54)
[2021-04-17] MEDS: Glimepiride 1 MG Tablet PO (07:54)
[2021-04-17] MEDS: Pantoprazole Sodium 40 MG Tablet PO (07:55)
[2021-04-17] MEDS: Empagliflozin 25 MG Tablet PO (07:55)
[2021-04-17] MEDS: Fluticasone 0.05% 1 SPRAY NASAL.SRY 2 SPRAY NASAL (07:55)
[2021-04-17] MEDS: Gemfibrozil 600 MG Tablet PO ×2 (08:06→21:46)
[2021-04-17] MEDS: Enoxaparin 30 MG/0.3 ML Syringe SC ×2 (08:06→21:46)
--- NOTE | 2021-04-17 10:43 | CASEMGMT ---
KARMEN COPELAND Assessment: Face to Face with pt for initial transition planning/care coordination assessment. KARMEN COPELAND introduced self and role at [facility], pt voices understanding and consents to assessment. Pt is A/O x4 and answers all questions appropriately at this time. Pt sitting up in bed with O2 on in no distress. Care providers, pharmacy, and demographics verified/updated. Admitting Dx: COVID 19 PNA PCP:Reena Specialists: Niki, cardio; Jesus, pulm; Mamie, derm Preferred Pharmacy: [facility] Insurance: MMO Prescription Benefit: yes LW/HPOA: Pt denies having a LW/DPOA and denies need for info regarding AD. LNOK: Veronica Blue, Living Arrangements: Pt lives with and two children, one under 18 and one over in a story and a half home with no steps to enter. Pt reports being I in ADL's and denies concerns at home. Transportation: Pt drives self and denies concerns with transportation. DME/HHC/SNF: Pt has a BGM at home but states he has not checked his blood sugar for a long time. He states that will order his strips from [employer]. He denies need for a rx for this. Pt also has a CPAP. Pt denies previous HHC or SNF stays. Pt was first tested at [facility] for COVID, all of his family are negative. Pt reports he is able to quarantine from his family by using separate bedrooms and bathrooms and wearing a mask. Pt has family who can provide him with groceries and supplies. Provided a list of local in network DME companies should pt need O2 on dc, he chooses [employer]. 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 he denies cigarette, street drug or illegal drug use. Pt drinks 2-3 beers a night and denies need for info regarding resources for cessation. Pt states no concerns with going home at time of dc. Pt states no further concerns/needs. CM to follow. Advised pt to ask CM if any further question/concerns/needs arise, voices understanding. Pt Goal: Home Plan: Home
[2021-04-17 12:15] LABS: Bedside Glucose 182 mg/dL (70-110)
--- NOTE | 2021-04-17 12:41 | PN.HOSP_ITS ---
Subjective Subjective Patient seen and examined. He still feels short of breath but has no other active complaints. REview of systems otherwise negative,. He is on 4L of oxygen by nasal canula. Review of systems otherwise negative. Objective Data Objective Data Vital Signs: Vital Signs Temp Pulse Resp BP Pulse Ox 97.7 F L 53 L 18 119/72 95 04/17/21 08:01 04/17/21 08:01 04/17/21 08:01 04/17/21 08:01 04/17/21 08:01 Oxygen Flow Rate (L/min) 4 Oxygen Delivery Method Nasal Cannula Weight: 185 lb 0.016 oz Body Mass Index (BMI) 28.0 Intake & Output: Intake and Output for Last 24 Hours 04/15/21 04/16/21 04/17/21 23:59 23:59 23:59 Intake Total 3805.0 / 3805.0 1200 / 1200 Balance 3805.0 / 3805.0 1200 / 1200 Lab / Micro Data Result Diagrams: 04/17/21 05:42 04/17/21 05:42 Labs: Laboratory Results - last 24 hr 04/16/21 16:51: POC Glucose 252 H 04/16/21 21:04: POC Glucose 227 H 04/17/21 05:42: WBC 7.2, RBC 4.15 L, Hgb 13.9, Hct 41.6, MCV 100.2 H, MCH 33.5 H , MCHC 33.4, RDW Std Deviation 46.8 H, RDW Coeff of Hernán 12.5, Plt Count 185, MPV 10.4, Immature Gran % (Auto) 0.800, Neut % (Auto) 82.0 H, Lymph % (Auto) 11.3 L, [place] % (Auto) 5.8, Eos % (Auto) 0.0, Baso % (Auto) 0.1, Absolute Neuts (auto) 5.9, Absolute Lymphs (auto) 0.81 L, Nucleated RBC % 0, Atypical Lymphocytes RARE 04/17/21 05:42: Sodium 141, Potassium 3.2 L, Chloride 107, Carbon Dioxide 25.0, Anion Gap 9, BUN 20 H, Creatinine 0.99, Estim Creat Clear Calc 84.44, Est GFR (MDRD) Af Amer 102, Est GFR (MDRD) Non-Af 84, BUN/Creatinine Ratio 20.1 H, Glucose 174 H, Calcium 8.1 L, Total Bilirubin 0.40, AST 32, ALT 18, Alkaline Phosphatase 60, Total Protein 6.3 L, Albumin 2.0 L, Globulin 4.3 H, Albumin/Globulin Ratio 0.5 L 04/17/21 06:42: POC Glucose 159 H 04/17/21 12:05: POC Glucose 182 H Micro: Microbiology 04/16/21 Unknown Nasal Secretion SARS-CoV-2 Antigen (Rapid) - Final SARS-CoV-2 (COVID 19) Physical Exam Const alert, oriented x3, no apparent distress and healthy appearing General Appearance: cooperative Exam Limitations: no limitations HEENT normocephalic, head/scalp atraumatic and moist oral mucous membranes Head and Scalp: normocephalic Eyes PERRL, EOMs intact bilaterally and conjunctivae normal Neck no lymphadenopathy Resp Resp Narrative: diminished breath sounds bibasally, no wheezes or crackles. On 4L of oxygen by nasal canula Cardio regular rate, regular rhythm, S1 normal heart sound, S2 normal heart sound and no murmurs GI normal to inspection, nondistended, normoactive bowel sounds, soft to palpation and non-tender Extremity normal to inspection, full ROM and no clubbing, cyanosis or edema Skin no rashes or lesions noted Neuro oriented x3, CN's II-XII intact bilaterally and moves all extremities Sensorium / Orientation: awake and alert Psych affect normal Assessment & Plan Assessment/Plan (1) Pneumonia due to 2019 novel coronavirus: PLAN: #Acute hypoxic respiratory failure due to COVID 19 pneumonia * on remdesivir and decadron * on 4L of oxygen now. Titrate oxygen to maintain sats >90% * Received 2nd dose of covid vaccine 7 days ago * breathing treatment with bronchodilators. * Titrate oxygen to maintain sats >90% * #COVID 19 pneumonia: as above #Elevated D dimer: * CTA negative for PE, per my read. Per radiology, showed significant bilateral airspace disease with no evidence of pneumonia. * On DVT prophylaxis Lovenox 30 mg twice daily. #Hypertension: on losartan #Type 2 diabetes mellitus:on dapagliflozin, glimepiride and metformin. ISS. Accuchecks ACHS #Hyperlipidemia: on statin. DVT prophylaxis: lovenox 30mg bid. Code status; full code. Charges/Coding Visit Charges Inpatient E&M: 93473 Subs Hosp L3
[2021-04-17] MEDS: Sodium Chloride 0.65% 1 SPRAY SPRAY.BTL 2 SPRAY NASAL (14:39)
[2021-04-17 17:05] LABS: Bedside Glucose 225 mg/dL (70-110)
[2021-04-17 22:56] LABS: Bedside Glucose 255 mg/dL (70-110)
[2021-04-18] VITALS (8 sets, daily range): BP systolic 122–136; BP diastolic 76–89; PULSE 53–86; RESP 18; TEMP 36.9–37.1; O2SAT 92–96
[2021-04-18] MEDS: Sodium Chloride 0.65% 1 SPRAY SPRAY.BTL 2 SPRAY NASAL ×2 (03:55→08:31)
[2021-04-18 06:35] LABS: Bedside Glucose 91 mg/dL (70-110)
[2021-04-18] MEDS: Fluticasone 0.05% 1 SPRAY NASAL.SRY 2 SPRAY NASAL (07:45)
[2021-04-18 08:11] LABS: Absolute Lymphocyte Count 1.02 X10^3/uL (0.83-4.51); Absolute Neutrophil Count 7.8 X10^3/uL (2.0-7.7); Basophil# 0.02 X10^3/uL; Basophil% 0.2 % (0-1); Eosinophil# 0.01 X10^3/uL; Eosinophils% 0.1 % (0-5); Hematocrit 44.3 % (40-54); Hemoglobin 14.8 g/dL (13.0-16.5); Lymphocyte # 1.02 X10^3/ul (0.83-4.51); Lymphocyte % 10.9 % (19-41); Mean Corp Hgb Conc 33.4 g/dL (32-36); Mean Corpuscular Hgb 33.4 pg (27.0-32.0); Mean Platelet Vol. 10.3 fl (6.2-12.0); Monocyte# 0.47 X10^3/uL; NRBC Flagged by Analyzer 0 % (0-5); Neutrophil # 7.75 X10^3/uL (2.7-7.7); Neutrophil % 83.1 % (47-70); POSITIVE MORPHOLOGY YES; Platelet Count 230 K/mm3 (150-450); RBC Distribution Width CV 12.6 % (11.6-14.6); RBC Distribution Width SD 46.9 fl (35.1-43.9); Red Blood Count 4.43 M/mm3 (4.6-6.2); White Blood Count 9.3 K/mm3 (4.4-11.0)
[2021-04-18 08:14] LABS: Differential Indicated SCAN CRITERIA MET
[2021-04-18 08:17] LABS: ALB/GLOB Ratio 0.5 RATIO (0.9-2.4); AST(SGOT) 36 U/L (15-37); Alanine Aminotransfer ALT/SGPT 20 U/L (16-61); Albumin, Serum 2.2 g/dL (3.2-5.0); Alkaline Phosphatase 65 U/L (45-117); Anion Gap 5 (5-15); BUN 19 mg/dL (7-18); BUN/Creat Ratio 20.1 RATIO (10-20); Calcium,Total 8.2 mg/dL (8.5-10.1); Chloride 110 mmol/L (98-107); Creatinine, Serum 0.94 mg/dL (0.70-1.30); EST Glomerular Filtration Rate 89 mL/min (>60); Est Glom Filt Rate - Afr Amer 108 mL/min (>60); Estimated Creatinine Clearance 88.94 ml/min; Globulin 4.2 g/dL (2.2-4.2); Glucose 93 mg/dL (74-106); Potassium 3.4 mmol/L (3.5-5.1); Protein, Total 6.4 g/dL (6.4-8.2); Sodium Level 144 mmol/L (136-145)
[2021-04-18] MEDS: Acetaminophen 325 MG Tablet 650 MG PO ×2 (08:35→16:14)
[2021-04-18 08:39] LABS: Platelet Estimate ADEQUATE (ADEQ); Red Cell Morphology NORM C+C NORMAL (NORM C&C)
--- NOTE | 2021-04-18 10:05 | PN.HOSP_ITS ---
Subjective Subjective Patient seen and examined. Complains of sore throat. He feels his shortness of breath is improved. He remains on 4 L of oxygen. Review of systems otherwise negative. Potassium was 3.4 today. Objective Data Objective Data Vital Signs: Vital Signs Temp Pulse Resp BP Pulse Ox 98.4 F 78 18 122/79 H 93 04/18/21 03:56 04/18/21 07:44 04/18/21 03:56 04/18/21 03:56 04/18/21 08:26 Oxygen Flow Rate (L/min) 4 Oxygen Delivery Method Nasal Cannula Weight: 185 lb 0.016 oz Body Mass Index (BMI) 28.0 Intake & Output: Intake and Output for Last 24 Hours 04/16/21 04/17/21 04/18/21 23:59 23:59 23:59 Intake Total 3805.0 / 3805.0 2450 / 2450 Balance 3805.0 / 3805.0 2450 / 2450 Lab / Micro Data Result Diagrams: 04/18/21 06:25 04/18/21 06:25 Labs: Laboratory Results - last 24 hr 04/17/21 12:05: POC Glucose 182 H 04/17/21 16:56: POC Glucose 225 H 04/17/21 21:44: POC Glucose 255 H 04/18/21 06:25: WBC 9.3, RBC 4.43 L, Hgb 14.8, Hct 44.3, MCV 100.0 H, MCH 33.4 H , MCHC 33.4, RDW Std Deviation 46.9 H, RDW Coeff of Hernán 12.6, Plt Count 230, MPV 10.3, Immature Gran % (Auto) 0.700, Neut % (Auto) 83.1 H, Lymph % (Auto) 10.9 L, [place] % (Auto) 5.0, Eos % (Auto) 0.1, Baso % (Auto) 0.2, Absolute Neuts (auto) 7.8 H, Absolute Lymphs (auto) 1.02, Nucleated RBC % 0, Platelet Estimate ADEQUATE, RBC Morphology NORM C+C 04/18/21 06:25: Sodium 144, Potassium 3.4 L, Chloride 110 H, Carbon Dioxide 29.0, Anion Gap 5, BUN 19 H, Creatinine 0.94, Estim Creat Clear Calc 88.94, Est GFR (MDRD) Af Amer 108, Est GFR (MDRD) Non-Af 89, BUN/Creatinine Ratio 20.1 H, Glucose 93, Calcium 8.2 L, Total Bilirubin 0.60, AST 36, ALT 20, Alkaline Phosphatase 65, Total Protein 6.4, Albumin 2.2 L, Globulin 4.2, Albumin/Globulin Ratio 0.5 L 04/18/21 06:26: POC Glucose 91 Micro: Microbiology 04/16/21 06:03 Blood Culture (Wb) - Right Hand Blood Culture - Preliminary No growth in 48 hours. 04/16/21 05:57 Blood Culture (Wb) - Anticubital Left Blood Culture - Preliminary No growth in 48 hours. 04/16/21 Unknown Nasal Secretion SARS-CoV-2 Antigen (Rapid) - Final SARS-CoV-2 (COVID 19) Physical Exam Const alert, oriented x3, no apparent distress and healthy appearing General Appearance: cooperative Exam Limitations: no limitations HEENT normocephalic, head/scalp atraumatic and moist oral mucous membranes Head and Scalp: normocephalic Eyes PERRL, EOMs intact bilaterally and conjunctivae normal Neck no lymphadenopathy Resp Resp Narrative: diminished breath sounds bibasally, no wheezes or crackles. Still on 4L of oxygen by nasal canula Cardio regular rate, regular rhythm, S1 normal heart sound, S2 normal heart sound and no murmurs GI normal to inspection, nondistended, normoactive bowel sounds, soft to palpation and non-tender Extremity normal to inspection, full ROM and no clubbing, cyanosis or edema Peripheral Pulses: Yes pulses 2+ throughout Skin no rashes or lesions noted Neuro oriented x3, CN's II-XII intact bilaterally and moves all extremities Sensorium / Orientation: awake and alert Psych affect normal Assessment & Plan Assessment/Plan (1) Pneumonia due to 2019 novel coronavirus: PLAN: #Acute hypoxic respiratory failure due to COVID 19 pneumonia * on 4L of oxygen by nasal canula * on remdesivir and decadron * is fully vaccinated. Second covid shot was ~ 1 week prior to admision * breathing treatment with bronchodilators. * Titrate oxygen to maintain sats >90% * #COVID 19 pneumonia: as above #Elevated D dimer: * CTA negative for PE, but showed bilateral airspace disease. * likely due to covid. #Hypokalemia: K is 3.4. Will replace and trend. #Hypertension: on losartan #Type 2 diabetes mellitus:on dapagliflozin, glimepiride and metformin. ISS. Accu checks ACHS #Hyperlipidemia: on statin. DVT prophylaxis: lovenox. Code status; full code. * Charges/Coding Visit Charges Inpatient E&M: 02772 Subs Hosp L2
[2021-04-18] MEDS: Potassium Chloride Oral Tablet 20 MEQ 40 MEQ PO (11:21)
[2021-04-18] MEDS: Enoxaparin 30 MG/0.3 ML Syringe SC ×2 (11:22→21:24)
[2021-04-18] MEDS: Pravastatin 20 MG Tablet PO (11:22)
[2021-04-18] MEDS: Gemfibrozil 600 MG Tablet PO ×2 (11:22→21:23)
[2021-04-18] MEDS: Empagliflozin 25 MG Tablet PO (11:22)
[2021-04-18] MEDS: dexAMETHasone 10 MG/ML Vial 6 MG IV (11:22)
[2021-04-18] MEDS: Losartan Potassium 25 MG Tablet PO (11:23)
[2021-04-18] MEDS: Pantoprazole Sodium 40 MG Tablet PO (11:23)
[2021-04-18] MEDS: Glimepiride 1 MG Tablet PO (11:23)
[2021-04-18] MEDS: Insulin Lispro 100 UNIT/ML INSULN.PEN SC ×3 (11:24→21:24)
[2021-04-18 12:01] LABS: Bedside Glucose 235 mg/dL (70-110)
[2021-04-18 16:26] LABS: Bedside Glucose 199 mg/dL (70-110)
[2021-04-18 21:41] LABS: Bedside Glucose 225 mg/dL (70-110)
[2021-04-19] VITALS (10 sets, daily range): BP systolic 118–152; BP diastolic 91–97; PULSE 63–89; RESP 16–18; TEMP 36.4–37.1; O2SAT 84–94
[2021-04-19] MEDS: Acetaminophen 325 MG Tablet 650 MG PO ×4 (00:05→19:46)
[2021-04-19 06:25] LABS: Bedside Glucose 84 mg/dL (70-110)
[2021-04-19 06:42] LABS: Absolute Lymphocyte Count 0.86 X10^3/uL (0.83-4.51); Absolute Neutrophil Count 6.8 X10^3/uL (2.0-7.7); Basophil# 0.02 X10^3/uL; Basophil% 0.2 % (0-1); Eosinophil# 0.05 X10^3/uL; Eosinophils% 0.6 % (0-5); Hematocrit 43.9 % (40-54); Hemoglobin 14.9 g/dL (13.0-16.5); Lymphocyte # 0.86 X10^3/ul (0.83-4.51); Lymphocyte % 10.5 % (19-41); Mean Corp Hgb Conc 33.9 g/dL (32-36); Mean Corpuscular Hgb 33.3 pg (27.0-32.0); Mean Platelet Vol. 9.9 fl (6.2-12.0); Monocyte# 0.34 X10^3/uL; Monocyte% 4.2 % (0-10); NRBC Flagged by Analyzer 0 % (0-5); Neutrophil # 6.83 X10^3/uL (2.7-7.7); Neutrophil % 83.6 % (47-70); POSITIVE MORPHOLOGY YES; Platelet Count 261 K/mm3 (150-450); RBC Distribution Width CV 12.5 % (11.6-14.6); RBC Distribution Width SD 45.1 fl (35.1-43.9); Red Blood Count 4.48 M/mm3 (4.6-6.2); White Blood Count 8.2 K/mm3 (4.4-11.0)
[2021-04-19 06:57] LABS: ALB/GLOB Ratio 0.5 RATIO (0.9-2.4); AST(SGOT) 35 U/L (15-37); Alanine Aminotransfer ALT/SGPT 19 U/L (16-61); Albumin, Serum 2.3 g/dL (3.2-5.0); Alkaline Phosphatase 73 U/L (45-117); Anion Gap 7 (5-15); BUN 16 mg/dL (7-18); BUN/Creat Ratio 16.5 RATIO (10-20); Calcium,Total 8.4 mg/dL (8.5-10.1); Chloride 110 mmol/L (98-107); Creatinine, Serum 0.97 mg/dL (0.70-1.30); EST Glomerular Filtration Rate 87 mL/min (>60); Est Glom Filt Rate - Afr Amer 105 mL/min (>60); Estimated Creatinine Clearance 86.19 ml/min; Globulin 4.5 g/dL (2.2-4.2); Glucose 81 mg/dL (74-106); Protein, Total 6.8 g/dL (6.4-8.2); Sodium Level 143 mmol/L (136-145)
[2021-04-19 07:14] LABS: Differential Indicated SCAN CRITERIA MET
[2021-04-19] MEDS: Losartan Potassium 25 MG Tablet PO (09:24)
[2021-04-19] MEDS: Gemfibrozil 600 MG Tablet PO ×2 (09:24→22:32)
[2021-04-19] MEDS: Potassium Chloride Oral Tablet 20 MEQ 60 MEQ PO (09:24)
[2021-04-19] MEDS: Enoxaparin 30 MG/0.3 ML Syringe SC ×2 (09:25→22:33)
[2021-04-19] MEDS: dexAMETHasone 10 MG/ML Vial 6 MG IV (09:25)
[2021-04-19] MEDS: Empagliflozin 25 MG Tablet PO (09:25)
[2021-04-19] MEDS: Glimepiride 1 MG Tablet PO (09:25)
[2021-04-19] MEDS: Pravastatin 20 MG Tablet PO (09:25)
[2021-04-19] MEDS: Pantoprazole Sodium 40 MG Tablet PO (09:25)
[2021-04-19] MEDS: Fluticasone 0.05% 1 SPRAY NASAL.SRY 2 SPRAY NASAL (09:26)
[2021-04-19] MEDS: 0.9% Saline Lock 10 ML Syringe IV ×2 (09:34→11:40)
--- NOTE | 2021-04-19 11:18 | PN.HOSP_ITS ---
Subjective Subjective Patient seen and examined. He complained of some sore throat again today, and said the cepacol ordered yesterday was helpful. Review of systems otherwise negative. He felt his shortness of breath was improving. HE is on 2L of oxygen. REview of systems otherwise negative. Objective Data Objective Data Vital Signs: Vital Signs Temp Pulse Resp BP Pulse Ox 98.4 F 89 16 132/97 H 94 04/19/21 09:17 04/19/21 09:17 04/19/21 09:17 04/19/21 09:17 04/19/21 09:17 Oxygen Flow Rate (L/min) 2 Oxygen Delivery Method Nasal Cannula Weight: 185 lb 0.016 oz Body Mass Index (BMI) 28.0 Intake & Output: Intake and Output for Last 24 Hours 04/17/21 04/18/21 04/19/21 23:59 23:59 23:59 Intake Total 2450 / 2450 250 / 250 Balance 2450 / 2450 250 / 250 Lab / Micro Data Result Diagrams: 04/19/21 06:02 04/19/21 06:02 Labs: Laboratory Results - last 24 hr 04/18/21 11:17: POC Glucose 235 H 04/18/21 16:08: POC Glucose 199 H 04/18/21 21:21: POC Glucose 225 H 04/19/21 06:02: WBC 8.2, RBC 4.48 L, Hgb 14.9, Hct 43.9, MCV 98.0 H, MCH 33.3 H, MCHC 33.9, RDW Std Deviation 45.1 H, RDW Coeff of Hernán 12.5, Plt Count 261, MPV 9.9, Immature Gran % (Auto) 0.900, Neut % (Auto) 83.6 H, Lymph % (Auto) 10.5 L, [place] % (Auto) 4.2, Eos % (Auto) 0.6, Baso % (Auto) 0.2, Absolute Neuts (auto) 6.8, Absolute Lymphs (auto) 0.86, Nucleated RBC % 0 04/19/21 06:02: Sodium 143, Potassium 3.0 L, Chloride 110 H, Carbon Dioxide 26.0, Anion Gap 7, BUN 16, Creatinine 0.97, Estim Creat Clear Calc 86.19, Est GFR (MDRD) Af Amer 105, Est GFR (MDRD) Non-Af 87, BUN/Creatinine Ratio 16.5, Glucose 81, Calcium 8.4 L, Total Bilirubin 0.70, AST 35, ALT 19, Alkaline Phosphatase 73, Total Protein 6.8, Albumin 2.3 L, Globulin 4.5 H, Albumin/Globulin Ratio 0.5 L 04/19/21 06:15: POC Glucose 84 Micro: Microbiology 04/16/21 06:03 Blood Culture (Wb) - Right Hand Blood Culture - Preliminary No growth in 48 hours. 04/16/21 05:57 Blood Culture (Wb) - Anticubital Left Blood Culture - Preliminary No growth in 48 hours. 04/16/21 Unknown Nasal Secretion SARS-CoV-2 Antigen (Rapid) - Final SARS-CoV-2 (COVID 19) Physical Exam Const alert, oriented x3 and no apparent distress General Appearance: cooperative Exam Limitations: no limitations HEENT head/scalp atraumatic and moist oral mucous membranes Head and Scalp: normocephalic Eyes PERRL, EOMs intact bilaterally and conjunctivae normal Neck no lymphadenopathy Resp Resp Narrative: bilateral coarse crackles, on 3L of oxygen by nasal canula Cardio regular rate, regular rhythm, S1 normal heart sound, S2 normal heart sound and no murmurs GI normal to inspection, nondistended, normoactive bowel sounds, soft to palpation, non-tender and non-distended Extremity normal to inspection, full ROM and no clubbing, cyanosis or edema Peripheral Pulses: Yes pulses 2+ throughout Skin no rashes or lesions noted Neuro oriented x3, CN's II-XII intact bilaterally and moves all extremities Sensorium / Orientation: awake and alert Psych affect normal Assessment & Plan Assessment/Plan (1) COVID: (2) Pneumonia due to 2019 novel coronavirus: PLAN: #Acute hypoxic respiratory failure due to COVID 19 pneumonia * now on 2L of oxygen by nasal canula * on remdesivir and decadron * is fully vaccinated. Second covid shot was ~ 1 week prior to admision * breathing treatment with bronchodilators. * Titrate oxygen to maintain sats >90% * #COVID 19 pneumonia: as above #Elevated D dimer: * CTA negative for PE, but showed bilateral airspace disease. * likely due to covid. * on lovenox #Hypokalemia: K is 3.0. Will replace and trend. #Hypertension: on losartan #Type 2 diabetes mellitus:on dapagliflozin, glimepiride and metformin. ISS. Accuchecks ACHS #Hyperlipidemia: on statin. DVT prophylaxis: lovenox. Code status; full code. Disposition: for likely DC tomorrow Charges/Coding Visit Charges Inpatient E&M: 15798 Subs Hosp L3
[2021-04-19] MEDS: Insulin Lispro 100 UNIT/ML INSULN.PEN SC ×3 (11:40→22:32)
[2021-04-19 12:25] LABS: Bedside Glucose 193 mg/dL (70-110)
[2021-04-19 16:46] LABS: Bedside Glucose 251 mg/dL (70-110)
[2021-04-19 22:40] LABS: Bedside Glucose 270 mg/dL (70-110)
[2021-04-20] VITALS (17 sets, daily range): BP systolic 110–137; BP diastolic 82–99; PULSE 57–94; RESP 16–24; TEMP 36.6–37.1; O2SAT 83–97
[2021-04-20] MEDS: Acetaminophen 325 MG Tablet 650 MG PO ×3 (01:46→22:16)
[2021-04-20 06:26] LABS: Bedside Glucose 78 mg/dL (70-110)
[2021-04-20 07:26] LABS: Absolute Lymphocyte Count 0.77 X10^3/uL (0.83-4.51); Absolute Neutrophil Count 7.8 X10^3/uL (2.0-7.7); Basophil# 0.02 X10^3/uL; Basophil% 0.2 % (0-1); Eosinophil# 0.12 X10^3/uL; Eosinophils% 1.3 % (0-5); Hematocrit 44.8 % (40-54); Hemoglobin 15.1 g/dL (13.0-16.5); Lymphocyte # 0.77 X10^3/ul (0.83-4.51); Lymphocyte % 8.5 % (19-41); Mean Corp Hgb Conc 33.7 g/dL (32-36); Mean Corpuscular Hgb 33.3 pg (27.0-32.0); Mean Corpuscular Volume 98.7 fL (80-94); Mean Platelet Vol. 9.9 fl (6.2-12.0); Monocyte% 3.3 % (0-10); NRBC Flagged by Analyzer 0 % (0-5); Platelet Count 272 K/mm3 (150-450); RBC Distribution Width CV 12.6 % (11.6-14.6); RBC Distribution Width SD 45.3 fl (35.1-43.9); Red Blood Count 4.54 M/mm3 (4.6-6.2); White Blood Count 9.1 K/mm3 (4.4-11.0)
[2021-04-20 07:58] LABS: ALB/GLOB Ratio 0.5 RATIO (0.9-2.4); AST(SGOT) 29 U/L (15-37); Alanine Aminotransfer ALT/SGPT 20 U/L (16-61); Albumin, Serum 2.3 g/dL (3.2-5.0); Alkaline Phosphatase 73 U/L (45-117); Anion Gap 10 (5-15); BUN 16 mg/dL (7-18); BUN/Creat Ratio 17.7 RATIO (10-20); Calcium,Total 8.5 mg/dL (8.5-10.1); Chloride 108 mmol/L (98-107); Creatinine, Serum 0.91 mg/dL (0.70-1.30); EST Glomerular Filtration Rate 93 mL/min (>60); Est Glom Filt Rate - Afr Amer 113 mL/min (>60); Estimated Creatinine Clearance 91.87 ml/min; Globulin 4.5 g/dL (2.2-4.2); Glucose 77 mg/dL (74-106); Potassium 3.4 mmol/L (3.5-5.1); Protein, Total 6.8 g/dL (6.4-8.2); Sodium Level 143 mmol/L (136-145)
[2021-04-20] MEDS: Gemfibrozil 600 MG Tablet PO ×2 (09:10→22:08)
[2021-04-20] MEDS: Empagliflozin 25 MG Tablet PO (09:10)
[2021-04-20] MEDS: Losartan Potassium 25 MG Tablet PO (09:10)
[2021-04-20] MEDS: Glimepiride 1 MG Tablet PO (09:10)
[2021-04-20] MEDS: Enoxaparin 30 MG/0.3 ML Syringe SC ×2 (09:11→22:08)
[2021-04-20] MEDS: Pantoprazole Sodium 40 MG Tablet PO (09:11)
[2021-04-20] MEDS: 0.9% Saline Lock 10 ML Syringe IV ×2 (09:11→10:02)
[2021-04-20] MEDS: Pravastatin 20 MG Tablet PO (09:11)
[2021-04-20] MEDS: dexAMETHasone 10 MG/ML Vial 6 MG IV (09:12)
[2021-04-20] MEDS: Fluticasone 0.05% 1 SPRAY NASAL.SRY 2 SPRAY NASAL (09:17)
[2021-04-20] MEDS: Potassium Chloride Oral Tablet 20 MEQ 40 MEQ PO (10:01)
--- NOTE | 2021-04-20 10:23 | PN.HOSP_ITS ---
Subjective Subjective Follow-up on acute respiratory failure secondary to COVID-19 pneumonia Patient was seen and examined. Overnight, his oxygen requirement went up. He is currently on 7 L of oxygen. He complains of pain in the thoracic region. He was supposed to have had an injection by Dr. Sethi but he could not get it last week. He admits to feeling depressed. Denies any dizziness or chest pain. Objective Data Objective Data Vital Signs: Vital Signs Temp Pulse Resp BP Pulse Ox 97.8 F 92 18 133/82 H 92 04/20/21 09:08 04/20/21 09:08 04/20/21 09:08 04/20/21 09:08 04/20/21 09:08 Oxygen Flow Rate (L/min) [ 6 AMBULATING with Oxygen #3] Oxygen Flow Rate (L/min) [ 5 AMBULATING with Oxygen #2] Oxygen Flow Rate (L/min) [ 4 AMBULATING with Oxygen #1] Oxygen Flow Rate (L/min) [At 3 REST with Oxygen] Oxygen Flow Rate (L/min) 7 Oxygen Delivery Method Nasal Cannula Weight: 83.915 kg Body Mass Index (BMI) 28.0 Intake & Output: Intake and Output for Last 24 Hours 04/18/21 04/19/21 04/20/21 23:59 23:59 23:59 Intake Total 250 / 250 250 / 250 Output Total 250 / 250 Balance 250 / 250 0 / 0 Lab / Micro Data Result Diagrams: 04/20/21 07:00 04/20/21 07:00 Labs: Laboratory Results - last 24 hr 04/19/21 11:38: POC Glucose 193 H 04/19/21 16:37: POC Glucose 251 H 04/19/21 22:31: POC Glucose 270 H 04/20/21 05:59: POC Glucose 78 04/20/21 07:00: WBC 9.1, RBC 4.54 L, Hgb 15.1, Hct 44.8, MCV 98.7 H, MCH 33.3 H, MCHC 33.7, RDW Std Deviation 45.3 H, RDW Coeff of Hernán 12.6, Plt Count 272, MPV 9.9, Immature Gran % (Auto) 0.700, Neut % (Auto) 86.0 H, Lymph % (Auto) 8.5 L, [place] % (Auto) 3.3, Eos % (Auto) 1.3, Baso % (Auto) 0.2, Absolute Neuts (auto) 7.8 H, Absolute Lymphs (auto) 0.77 L, Nucleated RBC % 0 04/20/21 07:00: Sodium 143, Potassium 3.4 L, Chloride 108 H, Carbon Dioxide 25.0, Anion Gap 10, BUN 16, Creatinine 0.91, Estim Creat Clear Calc 91.87, Est GFR (MDRD) Af Amer 113, Est GFR (MDRD) Non-Af 93, BUN/Creatinine Ratio 17.7, Glucose 77, Calcium 8.5, Total Bilirubin 0.60, AST 29, ALT 20, Alkaline Phosphatase 73, Total Protein 6.8, Albumin 2.3 L, Globulin 4.5 H, Albumin/Globulin Ratio 0.5 L Micro: Microbiology 04/16/21 06:03 Blood Culture (Wb) - Right Hand Blood Culture - Preliminary No growth in 48 hours. 04/16/21 05:57 Blood Culture (Wb) - Anticubital Left Blood Culture - Preliminary No growth in 48 hours. 04/16/21 Unknown Nasal Secretion SARS-CoV-2 Antigen (Rapid) - Final SARS-CoV-2 (COVID 19) Physical Exam Narrative Physical exam: General: Alert, Oriented x3, Cooperative, in mild respiratory distress, on 7 L of oxygen HEENT: Atraumatic Oral: Moist Mucosa Neck: Supple Lungs: Diminished to auscultation, crackles at the bases Cardiovascular: HS I+II, regular, no murmurs Abdomen: Bowel Sounds Present, Soft, Non Tender Extremities: No edema Assessment & Plan Assessment/Plan (1) COVID: (2) Acute respiratory failure with hypoxia: (3) Hypokalemia: (4) Elevated d-dimer: (5) KAREN (obstructive sleep apnea): (6) Hypertension: QUALIFIERS: Hypertension type: unspecified Qualified Code(s): I10 - Essential (primary) hypertension (7) Hyperlipidemia: QUALIFIERS: Hyperlipidemia type: unspecified Qualified Code(s): E78.5 - Hyperlipidemia, unspecified (8) Type 2 diabetes mellitus without complications: QUALIFIERS: Diabetes mellitus retirement insulin use: without retirement use Qualified Code(s): E11.9 - Type 2 diabetes mellitus without complications PLAN: 1. Acute respiratory failure secondary to acute COVID-19 pneumonia Patient is currently on 7 L of oxygen; oxygen requirement seems to have gone up He has been vaccinated with the Pfizer vaccine Chest x-ray had shown bilateral airspace disease; CT of the chest was negative for acute PE but showed bilateral airspace disease Currently on remdesivir and dexamethasone We will consult ID Continue to encourage use of incentive spirometer Check sputum cultures, urine Legionella and strep coccal antigen 2. Hypokalemia, replaced, recheck in am 3. Acute on chronic back pain, history of back injections, Will give trial of Lidoderm patches, OxyIR 5 mg x 1 4. Elevated D-dimer, acute PE ruled out, continue on Lovenox 30 mg twice daily 5. Type II DM, blood sugars are controlled, renal function is at baseline continue on dapagliflozin, glimepiride and Metformin 6. Hypertension, controlled, continue on losartan Charges/Coding Visit Charges Inpatient E&M: 24089 Subs Hosp L3
[2021-04-20 10:42] LABS: Magnesium 2.3 mg/dL (1.6-2.6)
[2021-04-20] MEDS: oxyCODONE 5 MG Tablet PO (12:16)
[2021-04-20] MEDS: Lidocaine 5% Patch 2 PATCH TOPICAL (12:16)
[2021-04-20] MEDS: Insulin Lispro 100 UNIT/ML INSULN.PEN SC ×3 (12:26→22:08)
--- NOTE | 2021-04-20 13:55 | PCM.CONS.GEN ---
Assessment & Plan Assessment/Plan (1) Acute respiratory failure with hypoxia: (2) COVID: PLAN: Sx started 04/09. Got 2nd vaccine dose right around that time. Improving. On dex, remdesivir. CT neg for PE. Isolate until 04/28. Will follow, thank you. Encouraged him to get family vaccinated. HPI Consult Data Date of Consult: 04/20/21 HPI Narrative HPI Narrative: DUARTE MARRERO, is a 50 M who presented 04/16 with sx starting 04/09. Got 2nd dose right at that time of pfizer vaccine. C/o dyspnea, cough, aches, congestion, sore throat. Family at home doing ok. Came to ED, admitted on dex, remdesivir. Feeling better. Full ROS performed and neg except as noted above. [facility] Medical History (Updated 04/20/21 @ 10:[address] Tg Johnson MD) Alcohol abuse CPAP (continuous positive airway pressure) dependence GERD (gastroesophageal reflux disease) Hyperlipidemia Hypertension Psoriatic arthritis Right bundle branch block Sleep apnea Type 2 diabetes mellitus without complications Home Medications omeprazole 40 mg capsule,delayed release 40 mg PO DAILY 05/19/18 [History Last Taken Unknown] metformin 1,000 mg tablet 1,000 mg PO DAILY 30 Days #60 tab 05/22/18 [History Last Taken Unknown] triamcinolone acetonide 55 mcg nasal spray aerosol 2 spray INTRANASAL DAILY PRN 12/07/18 [History Last Taken Unknown] gemfibrozil 600 mg tablet 600 mg PO BID #180 tab 07/02/19 [Rx Last Taken Unknown] pravastatin 20 mg tablet 20 mg PO DAILY #90 tab 07/02/19 [Rx Last Taken Unknown] glimepiride 2 mg tablet 1 mg PO QAM tab 07/18/19 [History Last Taken Unknown] dapagliflozin 10 mg tablet 10 mg PO DAILY tab 05/14/20 [History Last Taken Unknown] pseudoephedrine HCl 240 mg tablet,extended release 24 hr 240 mg PO DAILY PRN tab 05/14/20 [History Last Taken Unknown] losartan 25 mg tablet 25 mg PO DAILY #90 tab 07/21/20 [Rx Last Taken Unknown] Allergy/AdvReac Type Severity Reaction Status Date / Time amoxicillin [From Augmentin] AdvReac Diarrhea Verified 04/16/21 09:29 clavulanic acid AdvReac Diarrhea Verified 04/16/21 09:29 [From Augmentin] Family History Father CAD (coronary artery disease) FROM [place] AGE 65 Mother Diabetes Surgical History History of penile implant (~09/2019) History of sinus surgery Social History Smoking Status: Never smoker alcohol intake: current substance use type: does not use Physical Exam Const alert, oriented x3 and no apparent distress General Appearance: cooperative Exam Limitations: no limitations HEENT normocephalic and head/scalp atraumatic Eyes PERRL and EOMs intact bilaterally Neck supple and No nodes Resp clear to auscultation bilaterally Auscultation: diminished lung sounds Cardio regular rate and regular rhythm GI normal to inspection, nondistended, normoactive bowel sounds Extremity no clubbing, cyanosis or edema Skin no rashes or lesions noted Neuro CN's II-XII intact bilaterally Lab / Micro Data Result Diagrams: 04/20/21 07:00 04/20/21 07:00 Labs: Laboratory Results - last 24 hr 04/19/21 16:37: POC Glucose 251 H 04/19/21 22:31: POC Glucose 270 H 04/20/21 05:59: POC Glucose 78 04/20/21 07:00: WBC 9.1, RBC 4.54 L, Hgb 15.1, Hct 44.8, MCV 98.7 H, MCH 33.3 H, MCHC 33.7, RDW Std Deviation 45.3 H, RDW Coeff of Hernán 12.6, Plt Count 272, MPV 9.9, Immature Gran % (Auto) 0.700, Neut % (Auto) 86.0 H, Lymph % (Auto) 8.5 L, [place] % (Auto) 3.3, Eos % (Auto) 1.3, Baso % (Auto) 0.2, Absolute Neuts (auto) 7.8 H, Absolute Lymphs (auto) 0.77 L, Nucleated RBC % 0 04/20/21 07:00: Sodium 143, Potassium 3.4 L, Chloride 108 H, Carbon Dioxide 25.0, Anion Gap 10, BUN 16, Creatinine 0.91, Estim Creat Clear Calc 91.87, Est GFR (MDRD) Af Amer 113, Est GFR (MDRD) Non-Af 93, BUN/Creatinine Ratio 17.7, Glucose 77, Calcium 8.5, Total Bilirubin 0.60, AST 29, ALT 20, Alkaline Phosphatase 73, Total Protein 6.8, Albumin 2.3 L, Globulin 4.5 H, Albumin/Globulin Ratio 0.5 L 04/20/21 07:00: Magnesium 2.3
[2021-04-20 14:21] LABS: Bedside Glucose 257 mg/dL (70-110)
[2021-04-20 18:10] LABS: Bedside Glucose 279 mg/dL (70-110)
--- NOTE | 2021-04-20 20:22 | NURSING ---
Patient assisted into a prone position.
--- NOTE | 2021-04-20 20:30 | NURSING ---
RT in room with this RN, 02 increased to 15L- HF, patient laying prone. Patient is very frustrated at the current situation. RT setting up home CPAP at this time.
--- NOTE | 2021-04-20 20:47 | CPS ---
Patient's home BiPAP setup at bedside with O2 bled in
[2021-04-20 22:26] LABS: Bedside Glucose 223 mg/dL (70-110)
[2021-04-21] VITALS (9 sets, daily range): BP systolic 112–125; BP diastolic 75–89; PULSE 56–92; RESP 16–18; TEMP 36.5–37.1; O2SAT 89–100
[2021-04-21] MEDS: Acetaminophen 325 MG Tablet 650 MG PO ×3 (06:45→21:34)
[2021-04-21 06:52] LABS: Absolute Lymphocyte Count 0.76 X10^3/uL (0.83-4.51); Absolute Neutrophil Count 7.8 X10^3/uL (2.0-7.7); Basophil# 0.03 X10^3/uL; Basophil% 0.3 % (0-1); Eosinophil# 0.22 X10^3/uL; Eosinophils% 2.4 % (0-5); Hematocrit 45.7 % (40-54); Hemoglobin 15.5 g/dL (13.0-16.5); Lymphocyte # 0.76 X10^3/ul (0.83-4.51); Lymphocyte % 8.2 % (19-41); Mean Corp Hgb Conc 33.9 g/dL (32-36); Mean Corpuscular Hgb 33.5 pg (27.0-32.0); Mean Corpuscular Volume 98.7 fL (80-94); Mean Platelet Vol. 10.1 fl (6.2-12.0); Monocyte# 0.35 X10^3/uL; Monocyte% 3.8 % (0-10); NRBC Flagged by Analyzer 0 % (0-5); Neutrophil # 7.84 X10^3/uL (2.7-7.7); Neutrophil % 84.2 % (47-70); Platelet Count 292 K/mm3 (150-450); RBC Distribution Width SD 46.9 fl (35.1-43.9); Red Blood Count 4.63 M/mm3 (4.6-6.2); White Blood Count 9.3 K/mm3 (4.4-11.0)
[2021-04-21 06:55] LABS: Bedside Glucose 79 mg/dL (70-110)
[2021-04-21 07:00] LABS: ALB/GLOB Ratio 0.5 RATIO (0.9-2.4); AST(SGOT) 28 U/L (15-37); Alanine Aminotransfer ALT/SGPT 24 U/L (16-61); Albumin, Serum 2.4 g/dL (3.2-5.0); Alkaline Phosphatase 78 U/L (45-117); Anion Gap 10 (5-15); BUN 20 mg/dL (7-18); BUN/Creat Ratio 19.6 RATIO (10-20); Calcium,Total 8.8 mg/dL (8.5-10.1); Chloride 105 mmol/L (98-107); Creatinine, Serum 1.02 mg/dL (0.70-1.30); EST Glomerular Filtration Rate 81 mL/min (>60); Est Glom Filt Rate - Afr Amer 99 mL/min (>60); Estimated Creatinine Clearance 81.96 ml/min; Globulin 5.1 g/dL (2.2-4.2); Glucose 81 mg/dL (74-106); Potassium 3.7 mmol/L (3.5-5.1); Protein, Total 7.5 g/dL (6.4-8.2); Sodium Level 140 mmol/L (136-145)
[2021-04-21] MEDS: Lidocaine 5% Patch 2 PATCH TOPICAL (09:11)
[2021-04-21] MEDS: 0.9% Saline Lock 10 ML Syringe IV ×2 (09:15→12:01)
[2021-04-21] MEDS: Enoxaparin 30 MG/0.3 ML Syringe SC ×2 (09:15→21:14)
--- NOTE | 2021-04-21 09:15 | CPS ---
Patient's family dropped off a new reservoir for his own bipap machine. Bipap set up at bedside with 15lpm in line. Placed on patient in prone position. Sats increased to 100%.
[2021-04-21] MEDS: Pantoprazole Sodium 40 MG Tablet PO (09:16)
[2021-04-21] MEDS: Pravastatin 20 MG Tablet PO (09:17)
[2021-04-21] MEDS: Glimepiride 1 MG Tablet PO (09:17)
[2021-04-21] MEDS: Gemfibrozil 600 MG Tablet PO ×2 (09:17→21:14)
[2021-04-21] MEDS: Losartan Potassium 25 MG Tablet PO (09:17)
[2021-04-21] MEDS: dexAMETHasone 10 MG/ML Vial 6 MG IV (09:17)
[2021-04-21] MEDS: Empagliflozin 25 MG Tablet PO (09:17)
[2021-04-21] MEDS: Fluticasone 0.05% 1 SPRAY NASAL.SRY 2 SPRAY NASAL (09:18)
--- NOTE | 2021-04-21 09:28 | NURSING ---
15L HIFLO POX 86-90%. AFTER AMBULATING TO BATHROOM, POX 85% AFTER AMBULATING TO BATHROOM, TOOK SEVERAL MINUTES TO RETURN TO 89%. RESPITORY THERAPY NOTIFIED AND IN ROOM NOW TO PUT PT BACK ON HIS HOME BIPAP. PT LYING PRONE
--- NOTE | 2021-04-21 10:38 | PCM.PN.ID ---
Physical Exam Narrative Has been proning. Dyspnea when he gets up. No fever, no n/v/d. Const alert General Appearance: cooperative Resp clear to auscultation bilaterally Auscultation: diminished lung sounds Cardio regular rate and regular rhythm GI normal to inspection, nondistended, normoactive bowel sounds Skin no rashes or lesions noted ID ID: Route of nutrition/ use of supplements: [] Nutritional Intake: [] IV Site: [] Alvarado Catheter: [] Assessment & Plan Assessment/Plan (1) Acute respiratory failure with hypoxia: (2) COVID: PLAN: Sx started 04/09. Got 2nd vaccine dose right around that time. On dex, remdesivir. CT neg for PE. Isolate until 04/28. Worsening O2, reviewed EUA and risks/benefits will him; we agree to start baricitinib. Will follow
[2021-04-21] MEDS: Insulin Lispro 100 UNIT/ML INSULN.PEN SC ×3 (12:01→21:18)
[2021-04-21] MEDS: Furosemide 40 MG/4 ML Vial IV (12:01)
--- NOTE | 2021-04-21 12:15 | PN.HOSP_ITS ---
Subjective Subjective Follow-up on acute respiratory failure secondary to COVID-19 pneumonia Patient was seen and examined. His oxygen requirements have gone up to 15 L. Denied any fever or chills. He has been proning. Objective Data Objective Data Vital Signs: Vital Signs Temp Pulse Resp BP Pulse Ox 98.8 F 92 16 122/89 H 100 04/21/21 08:15 04/21/21 08:15 04/21/21 08:15 04/21/21 08:15 04/21/21 09:30 Oxygen Flow Rate (L/min) [ 6 AMBULATING with Oxygen #3] Oxygen Flow Rate (L/min) [ 5 AMBULATING with Oxygen #2] Oxygen Flow Rate (L/min) [ 4 AMBULATING with Oxygen #1] Oxygen Flow Rate (L/min) [At 3 REST with Oxygen] Oxygen Flow Rate (L/min) 15 Oxygen Delivery Method Bi-pap Weight: 83.915 kg Body Mass Index (BMI) 28.0 Intake & Output: Intake and Output for Last 24 Hours 04/19/21 04/20/21 04/21/21 23:59 23:59 23:59 Intake Total 250 / 250 490 / 490 Output Total 250 / 250 1300 / 1300 Balance 0 / 0 -810 / -810 Lab / Micro Data Result Diagrams: 04/21/21 06:04 04/21/21 06:04 Labs: Laboratory Results - last 24 hr 04/20/21 12:12: POC Glucose 257 H 04/20/21 17:18: POC Glucose 279 H 04/20/21 22:07: POC Glucose 223 H 04/21/21 06:04: WBC 9.3, RBC 4.63, Hgb 15.5, Hct 45.7, MCV 98.7 H, MCH 33.5 H, MCHC 33.9, RDW Std Deviation 46.9 H, RDW Coeff of Hernán 13.0, Plt Count 292, MPV 10.1, Immature Gran % (Auto) 1.100 H, Neut % (Auto) 84.2 H, Lymph % (Auto) 8.2 L , [place] % (Auto) 3.8, Eos % (Auto) 2.4, Baso % (Auto) 0.3, Absolute Neuts (auto) 7.8 H, Absolute Lymphs (auto) 0.76 L, Nucleated RBC % 0 04/21/21 06:04: Sodium 140, Potassium 3.7, Chloride 105, Carbon Dioxide 25.0, Anion Gap 10, BUN 20 H, Creatinine 1.02, Estim Creat Clear Calc 81.96, Est GFR (MDRD) Af Amer 99, Est GFR (MDRD) Non-Af 81, BUN/Creatinine Ratio 19.6, Glucose 81, Calcium 8.8, Total Bilirubin 0.70, AST 28, ALT 24, Alkaline Phosphatase 78, Total Protein 7.5, Albumin 2.4 L, Globulin 5.1 H, Albumin/Globulin Ratio 0.5 L 04/21/21 06:44: POC Glucose 79 Micro: Microbiology 04/16/21 06:03 Blood Culture (Wb) - Right Hand Blood Culture - Final No growth in 5 days. 04/16/21 05:57 Blood Culture (Wb) - Anticubital Left Blood Culture - Final No growth in 5 days. 04/20/21 13:20 Urine, Clean Catch Legionella Antigen - Final 04/20/21 13:20 Urine, Clean Catch Streptococcus pneumoniae Antigen (M - Final 04/16/21 Unknown Nasal Secretion SARS-CoV-2 Antigen (Rapid) - Final SARS-CoV-2 (COVID 19) Physical Exam Narrative Physical exam: General: Alert, Oriented x3, Cooperative, in mild respiratory distress, on 15 L of oxygen HEENT: Atraumatic Oral: Moist Mucosa Neck: Supple Lungs: Diminished to auscultation Cardiovascular: HS I+II, regular, no murmurs Abdomen: Bowel Sounds Present, Soft, Non Tender Extremities: No edema Assessment & Plan Assessment/Plan (1) COVID: (2) Acute respiratory failure with hypoxia: (3) Hypokalemia: (4) Elevated d-dimer: (5) KAREN (obstructive sleep apnea): (6) Hypertension: QUALIFIERS: Hypertension type: unspecified Qualified Code(s): I10 - Essential (primary) hypertension (7) Hyperlipidemia: QUALIFIERS: Hyperlipidemia type: unspecified Qualified Code(s): E78.5 - Hyperlipidemia, unspecified (8) Type 2 diabetes mellitus without complications: QUALIFIERS: Diabetes mellitus intermediate insulin use: without intermediate use Qualified Code(s): E11.9 - Type 2 diabetes mellitus without complications PLAN: 1. Acute respiratory failure secondary to acute COVID-19 pneumonia, worsening On 15 L of oxygen He has been vaccinated with the Pfizer vaccine; he got his second dose right about the time his symptoms started Chest x-ray had shown bilateral airspace disease; CTA of the chest was negative for acute PE but showed bilateral airspace disease Currently on remdesivir, dexamethasone and Baracitinib ID and pulmonary following 2. Hypokalemia, replaced 3. Acute on chronic back pain, history of back injections, improved Continue Lidoderm patches as well as oxycodone 4. Elevated D-dimer, acute PE ruled out, continue on Lovenox 30 mg twice daily 5. Type II DM, blood sugars are controlled, renal function is at baseline continue on dapagliflozin, glimepiride and Metformin 6. Hypertension, controlled, continue on losartan Charges/Coding Visit Charges Inpatient E&M: 70935 Subs Hosp L3
[2021-04-21 13:20] LABS: Bedside Glucose 235 mg/dL (70-110)
--- NOTE | 2021-04-21 13:44 | EX.PCM.CONCC ---
Assessment & Plan Assessment/Plan (1) COVID: (2) KAREN (obstructive sleep apnea): (3) Type 2 diabetes mellitus without complications: QUALIFIERS: Diabetes mellitus circuit recorder insulin use: without correction use Qualified Code(s): E11.9 - Type 2 diabetes mellitus without complications PLAN: RECOMMENDATIONS: 1. Continue supplemental oxygen as needed to keep saturations greater than 90% 2. Challenge with diuretics as renal function allows 3. Aggressive electrolyte repletion 4. Encourage Acapella, incentive spirometer and prone positioning as able 5. Continue Decadron and baricitinib 6. Aggressive control of hyperglycemia IMPRESSIONS: 1. Acute hypoxic respiratory failure secondary to COVID-19 Patient with extensive bilateral groundglass opacities on presentation. Patient has had worsening in oxygenation since presentation. This may be secondary to progression of disease as patient did present relatively early. However, patient is also positive almost 6 L from a fluid status standpoint. Would recommend diuresis as tolerated. Patient is on Acapella, incentive spirometer and has been doing prone positioning. This should help. Continue with Decadron and baricitinib. Monitor renal and liver functions appropriately. We will hold on additional Lasix for today as patient has already been dosed this afternoon. 2. KAREN/psoriatic arthritis/hypertension/hyperlipidemia/diabetes mellitus type 2 Complicates care, management, recovery and prognosis. Okay to continue with baseline medications. Patient may require additional insulin therapy to maintain euglycemia. HPI Consult Data Date of Consult: 04/21/21 HPI Narrative HPI Narrative: DUARTE MARRERO is a 50 M, with past medical history listed below, who presented to [facility] on 04/16/2021 secondary to cough and worsening shortness of breath. Patient had reported onset of symptoms 6 days prior to presentation. Patient had received a single dose of Pfizer vaccine previously and a second dose on the day of symptom onset for this presentation. Patient had reported a dry cough and shortness of breath with activity. No chest pain was noted. 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 Patient denies any history of respiratory conditions such as asthma or COPD. In the ER, patient was afebrile, but tachypneic at 24 breaths/min. Patient was requiring nasal cannula oxygen to maintain saturations. Laboratory data showed a white blood cell count of 6.9, hemoglobin of 15.8 and a D-dimer of approximately 1. Patient's potassium was low at 3.1 and creatinine was 1.16. Glucose was elevated at 267, but lactate was within normal limits. A chest x-ray at that time showed diffuse bilateral infiltrates and this was confirmed on CTA of the chest showing no PE, but diffuse bilateral airspace disease. Patient did have some mediastinal lymphadenopathy noted. Patient was admitted to the floor for evaluation. Patient was initiated on Decadron and Remdesivir therapy. Baseline medications were continued and patient was given sliding scale insulin. Over the course of the hospitalization, patient has become progressively hypoxic. Infectious disease has seen the patient and initiated baricitinib and pulmonary was consulted today for their input. On my evaluation, patient was on a CPAP with supplemental oxygen at 15 L. Patient was reporting a cough. Nursing reported the patient was doing well with incentive spirometry, Acapella and prone positioning. Patient subjectively felt relatively stable. Patient did have shortness of breath with minimal exertion. Patient was reporting polyuria, but it recently received Lasix. Patient does use CPAP at baseline secondary to obstructive sleep apnea. Patient also has a history of sinus surgery. Patient does appear to be positive almost 6 L over the course of the hospitalization. Review of systems otherwise negative from a constitutional, HEENT, respiratory, cardiovascular, GI, genitourinary, musculoskeletal, skin, neurologic, psychiatric and hematologic system unless stated above. [facility] Medical History (Updated 04/20/21 @ 10:[address] Tg Johnson MD) Alcohol abuse CPAP (continuous positive airway pressure) dependence GERD (gastroesophageal reflux disease) Hyperlipidemia Hypertension Psoriatic arthritis Right bundle branch block Sleep apnea Type 2 diabetes mellitus without complications Home Medications omeprazole 40 mg capsule,delayed release 40 mg PO DAILY 05/19/18 [History Last Taken Unknown] metformin 1,000 mg tablet 1,000 mg PO DAILY 30 Days #60 tab 05/22/18 [History Last Taken Unknown] triamcinolone acetonide 55 mcg nasal spray aerosol 2 spray INTRANASAL DAILY PRN 12/07/18 [History Last Taken Unknown] gemfibrozil 600 mg tablet 600 mg PO BID #180 tab 07/02/19 [Rx Last Taken Unknown] pravastatin 20 mg tablet 20 mg PO DAILY #90 tab 07/02/19 [Rx Last Taken Unknown] glimepiride 2 mg tablet 1 mg PO QAM tab 07/18/19 [History Last Taken Unknown] dapagliflozin 10 mg tablet 10 mg PO DAILY tab 05/14/20 [History Last Taken Unknown] pseudoephedrine HCl 240 mg tablet,extended release 24 hr 240 mg PO DAILY PRN tab 05/14/20 [History Last Taken Unknown] losartan 25 mg tablet 25 mg PO DAILY #90 tab 07/21/20 [Rx Last Taken Unknown] Allergy/AdvReac Type Severity Reaction Status Date / Time amoxicillin [From Augmentin] AdvReac Diarrhea Verified 04/16/21 09:29 clavulanic acid AdvReac Diarrhea Verified 04/16/21 09:29 [From Augmentin] Family History Father CAD (coronary artery disease) FROM [place] AGE 65 Mother Diabetes Surgical History History of penile implant (~09/2019) History of sinus surgery Social History Smoking Status: Never smoker alcohol intake: current substance use type: does not use ROS ROS Narrative See HPI Physical Exam Const alert, oriented x3 and no apparent distress Constitutional Narrative: Mild conversational dyspnea. Does desaturate with conversation. General Appearance: cooperative Exam Limitations: no limitations HEENT normocephalic and head/scalp atraumatic Eyes PERRL and EOMs intact bilaterally Neck supple and No nodes Chest inspection of chest normal Chest: symmetrical chest wall rise; Negative for crepitus Resp Auscultation: diminished lung sounds; Negative for rales, rhonchi or wheezes Cardio regular rate, regular rhythm, S1 normal heart sound, S2 normal heart sound, no murmurs, no rub and no gallops GI normal to inspection, nondistended, normoactive bowel sounds no CVA tenderness Extremity no clubbing, cyanosis or edema Skin no rashes or lesions noted Neuro CN's II-XII intact bilaterally Psych mental status grossly normal, thought process normal, cooperative, affect normal and speech normal Lab / Micro Data Result Diagrams: 04/21/21 06:04 04/21/21 06:04 Labs: Laboratory Results - last 24 hr 04/20/21 12:12: POC Glucose 257 H 04/20/21 17:18: POC Glucose 279 H 04/20/21 22:07: POC Glucose 223 H 04/21/21 06:04: WBC 9.3, RBC 4.63, Hgb 15.5, Hct 45.7, MCV 98.7 H, MCH 33.5 H, MCHC 33.9, RDW Std Deviation 46.9 H, RDW Coeff of Hernán 13.0, Plt Count 292, MPV 10.1, Immature Gran % (Auto) 1.100 H, Neut % (Auto) 84.2 H, Lymph % (Auto) 8.2 L, [place] % (Auto) 3.8, Eos % (Auto) 2.4, Baso % (Auto) 0.3, Absolute Neuts (auto) 7.8 H, Absolute Lymphs (auto) 0.76 L, Nucleated RBC % 0 04/21/21 06:04: Sodium 140, Potassium 3.7, Chloride 105, Carbon Dioxide 25.0, Anion Gap 10, BUN 20 H, Creatinine 1.02, Estim Creat Clear Calc 81.96, Est GFR (MDRD) Af Amer 99, Est GFR (MDRD) Non-Af 81, BUN/Creatinine Ratio 19.6, Glucose 81, Calcium 8.8, Total Bilirubin 0.70, AST 28, ALT 24, Alkaline Phosphatase 78, Total Protein 7.5, Albumin 2.4 L, Globulin 5.1 H, Albumin/Globulin Ratio 0.5 L 04/21/21 06:44: POC Glucose 79 04/21/21 11:59: POC Glucose 235 H Micro: Microbiology 04/16/21 06:03 Blood Culture (Wb) - Right Hand Blood Culture - Final No growth in 5 days. 04/16/21 05:57 Blood Culture (Wb) - Anticubital Left Blood Culture - Final No growth in 5 days. 04/20/21 13:20 Urine, Clean Catch Legionella Antigen - Final 04/20/21 13:20 Urine, Clean Catch Streptococcus pneumoniae Antigen (M - Final Charges/Coding Visit Charges Inpatient E&M: 97318 Init Hosp L3
[2021-04-21 16:35] LABS: Bedside Glucose 297 mg/dL (70-110)
--- NOTE | 2021-04-21 16:52 | CHAPLAIN ---
Type of Pastoral Visit ___ Initial Visit ___ Follow-up Visit ___ On-call Visit ___ General Patient Visit ___ Spiritual Assessment ___ Family Conference ___ Bereavement ___ Rapid Response ___ Code Blue _x__ Other (describe below) Pastoral Care Referral From _x__ Patient ___ Family _x__ Nurse ___ Physician ___ External Auditor ___ Gas Attendant ___ Other (describe below) Sacrament/Intervention _x__ Active listening ___ Anointing ___ Sabianism ___ Bereavement ___ Communion ___ Nicole exploration ___ ___ Life review _x__ Prayer ___ Reconciliation ___ Sacrament of Sick _x__ Supportive presence ___ Wedding ___ Other (describe below) Pastoral Comments RN recommended call of support into this isolation room; pt admits to have some anxiety and to desire prayer support; talk in calm words for reassurance of good care and God's presence in this time; pt is member of local [employer] and states many people are praying for me; pt would welcome further support in the future
[2021-04-22] VITALS (9 sets, daily range): BP systolic 94–111; BP diastolic 68–74; PULSE 60–91; RESP 16–20; TEMP 36.5–36.7; O2SAT 92–96
[2021-04-22 00:45] LABS: Bedside Glucose 384 mg/dL (70-110)
[2021-04-22] MEDS: Acetaminophen 325 MG Tablet 650 MG PO ×2 (03:57→21:31)
[2021-04-22] MEDS: Insulin Lispro 100 UNIT/ML INSULN.PEN SC ×4 (06:19→21:29)
[2021-04-22 06:40] LABS: Bedside Glucose 177 mg/dL (70-110)
--- NOTE | 2021-04-22 08:14 | PN.HOSP_ITS ---
Subjective Subjective Follow-up on acute respiratory failure secondary to COVID-19 pneumonia: Patient was seen and examined. He feels improved. He still remains on 15 L of oxygen. Denied any new complaint Objective Data Objective Data Vital Signs: Vital Signs Temp Pulse Resp BP Pulse Ox 97.7 F L 60 16 111/72 96 04/22/21 03:32 04/22/21 03:32 04/22/21 03:32 04/22/21 03:32 04/22/21 04:00 Oxygen Flow Rate (L/min) [ 6 AMBULATING with Oxygen #3] Oxygen Flow Rate (L/min) [ 5 AMBULATING with Oxygen #2] Oxygen Flow Rate (L/min) [ 4 AMBULATING with Oxygen #1] Oxygen Flow Rate (L/min) [At 3 REST with Oxygen] Oxygen Flow Rate (L/min) 15 Oxygen Delivery Method Bi-pap Weight: 83.915 kg Body Mass Index (BMI) 28.0 Intake & Output: Intake and Output for Last 24 Hours 04/20/21 04/21/21 04/22/21 23:59 23:59 23:59 Intake Total 490 / 490 Output Total 1300 / 1300 1300 / 1300 Balance -810 / -810 -1300 / -1300 Lab / Micro Data Result Diagrams: 04/22/21 08:26 04/22/21 08:26 Labs: Laboratory Results - last 24 hr 04/21/21 11:59: POC Glucose 235 H 04/21/21 16:06: POC Glucose 297 H 04/21/21 21:18: POC Glucose 384 H 04/22/21 06:19: POC Glucose 177 H Micro: Microbiology 04/21/21 09:10 Sputum, Expectorated/Coughed Gram Stain - Final 04/16/21 06:03 Blood Culture (Wb) - Right Hand Blood Culture - Final No growth in 5 days. 04/16/21 05:57 Blood Culture (Wb) - Anticubital Left Blood Culture - Final No growth in 5 days. 04/20/21 13:20 Urine, Clean Catch Legionella Antigen - Final 04/20/21 13:20 Urine, Clean Catch Streptococcus pneumoniae Antigen (M - Final 04/16/21 Unknown Nasal Secretion SARS-CoV-2 Antigen (Rapid) - Final SARS-CoV-2 (COVID 19) Physical Exam Narrative Physical exam: General: Alert, Oriented x3, Cooperative, in mild respiratory distress, on 15 L of oxygen HEENT: Atraumatic Oral: Moist Mucosa Neck: Supple Lungs: Diminished to auscultation Cardiovascular: HS I+II, regular, no murmurs Abdomen: Bowel Sounds Present, Soft, Non Tender Extremities: No edema Assessment & Plan Assessment/Plan (1) COVID: (2) Acute respiratory failure with hypoxia: (3) Hypokalemia: (4) Elevated d-dimer: (5) KAREN (obstructive sleep apnea): (6) Hypertension: QUALIFIERS: Hypertension type: unspecified Qualified Code(s): I10 - Essential (primary) hypertension (7) Hyperlipidemia: QUALIFIERS: Hyperlipidemia type: unspecified Qualified Code(s): E78.5 - Hyperlipidemia, unspecified (8) Type 2 diabetes mellitus without complications: QUALIFIERS: Diabetes mellitus vermin exterminator insulin use: without long-term use Qualified Code(s): E11.9 - Type 2 diabetes mellitus without complications PLAN: 1. Acute respiratory failure secondary to acute COVID-19 pneumonia, worsening Remains on 15 L of oxygen He has been vaccinated with the Pfizer vaccine; he got his second dose right about the time his symptoms started Chest x-ray had shown bilateral airspace disease; CTA of the chest was negative for acute PE but showed bilateral airspace disease Currently on remdesivir, dexamethasone and Baracitinib ID and pulmonary following 2. Hypokalemia, replaced 3. Acute on chronic back pain, history of back injections, improved Continue Lidoderm patches as well as oxycodone 4. Elevated D-dimer, acute PE ruled out, continue on Lovenox 30 mg twice daily 5. Type II DM, blood sugars are uncontrolled, renal function is at baseline Continue on Lantus, ISS, blood glucose checks continue on dapagliflozin, glimepiride and Metformin 6. Hypertension, controlled, continue on losartan Charges/Coding Visit Charges Inpatient E&M: 75564 Subs Hosp L3
[2021-04-22 08:47] LABS: Absolute Neutrophil Count 7.5 X10^3/uL (2.0-7.7); Basophil# 0.03 X10^3/uL; Basophil% 0.3 % (0-1); Eosinophil# 0.24 X10^3/uL; Eosinophils% 2.5 % (0-5); Hematocrit 49.7 % (40-54); Lymphocyte % 11.7 % (19-41); Mean Corp Hgb Conc 34.2 g/dL (32-36); Mean Corpuscular Hgb 33.5 pg (27.0-32.0); Mean Corpuscular Volume 97.8 fL (80-94); Monocyte# 0.37 X10^3/uL; Monocyte% 3.9 % (0-10); NRBC Flagged by Analyzer 0 % (0-5); Neutrophil % 79.6 % (47-70); Platelet Count 317 K/mm3 (150-450); RBC Distribution Width SD 46.2 fl (35.1-43.9); Red Blood Count 5.08 M/mm3 (4.6-6.2); White Blood Count 9.4 K/mm3 (4.4-11.0)
[2021-04-22] MEDS: Pantoprazole Sodium 40 MG Tablet PO (09:01)
[2021-04-22] MEDS: Pravastatin 20 MG Tablet PO (09:02)
[2021-04-22] MEDS: Glimepiride 1 MG Tablet PO (09:02)
[2021-04-22] MEDS: Enoxaparin 30 MG/0.3 ML Syringe SC ×2 (09:02→21:32)
[2021-04-22] MEDS: Losartan Potassium 25 MG Tablet PO (09:02)
[2021-04-22] MEDS: Gemfibrozil 600 MG Tablet PO ×2 (09:03→21:31)
[2021-04-22] MEDS: Empagliflozin 25 MG Tablet PO (09:03)
[2021-04-22] MEDS: dexAMETHasone 10 MG/ML Vial 6 MG IV (09:04)
[2021-04-22] MEDS: 0.9% Saline Lock 10 ML Syringe IV (09:06)
[2021-04-22] MEDS: Fluticasone 0.05% 1 SPRAY NASAL.SRY 2 SPRAY NASAL (09:07)
[2021-04-22 09:16] LABS: ALB/GLOB Ratio 0.4 RATIO (0.9-2.4); AST(SGOT) 29 U/L (15-37); Alanine Aminotransfer ALT/SGPT 26 U/L (16-61); Albumin, Serum 2.6 g/dL (3.2-5.0); Alkaline Phosphatase 86 U/L (45-117); Anion Gap 8 (5-15); BUN 30 mg/dL (7-18); BUN/Creat Ratio 24.6 RATIO (10-20); Calcium,Total 9.4 mg/dL (8.5-10.1); Chloride 102 mmol/L (98-107); Creatinine, Serum 1.22 mg/dL (0.70-1.30); EST Glomerular Filtration Rate 66 mL/min (>60); Est Glom Filt Rate - Afr Amer 80 mL/min (>60); Estimated Creatinine Clearance 68.52 ml/min; Globulin 5.8 g/dL (2.2-4.2); Glucose 111 mg/dL (74-106); Potassium 3.7 mmol/L (3.5-5.1); Protein, Total 8.4 g/dL (6.4-8.2); Sodium Level 139 mmol/L (136-145)
[2021-04-22] MEDS: Lidocaine 5% Patch 2 PATCH TOPICAL (09:16)
--- NOTE | 2021-04-22 10:04 | PCM.PN.INT ---
Assessment & Plan Assessment/Plan (1) COVID: (2) KAREN (obstructive sleep apnea): (3) Type 2 diabetes mellitus without complications: QUALIFIERS: Diabetes mellitus custodial insulin use: without custodial use Qualified Code(s): E11.9 - Type 2 diabetes mellitus without complications PLAN: RECOMMENDATIONS: 1. Continue supplemental oxygen as needed to keep saturations greater than 90% 2. Challenge with diuretics as renal function allows. No doses today 3. Aggressive electrolyte repletion as indicated 4. Encourage Acapella, incentive spirometer and prone positioning as able 5. Continue Decadron and baricitinib 6. Continue control of hyperglycemia IMPRESSIONS: 1. Acute hypoxic respiratory failure secondary to COVID-19 Patient with extensive bilateral groundglass opacities on presentation. Patient has had worsening in oxygenation since presentation. This may be secondary to progression of disease as patient did present relatively early. However, patient is also positive almost 5 L from a fluid status standpoint. Would recommend diuresis as tolerated. We will hold with diuresis today, but probably challenge again tomorrow. Patient is on Acapella, incentive spirometer and has been doing prone positioning. This should help. Continue with Decadron and baricitinib. Monitor renal and liver functions appropriately. 2. KAREN/psoriatic arthritis/hypertension/hyperlipidemia/diabetes mellitus type 2 Complicates care, management, recovery and prognosis. Okay to continue with baseline medications. Patient may require additional insulin therapy to maintain euglycemia. Subjective Subjective The patient did okay overnight. Patient is reporting a productive cough. Patient overall feels subjectively slightly stronger compared to yesterday. Patient denies any current chest pain or abdominal pain. Patient did have significant diuresis associated with Lasix yesterday. Objective Data Objective Data Vital Signs: Vital Signs Temp Pulse Resp BP Pulse Ox 36.7 C 91 18 107/72 93 04/22/21 08:56 04/22/21 08:56 04/22/21 08:56 04/22/21 08:56 04/22/21 09:13 Oxygen Flow Rate (L/min) [ 6 AMBULATING with Oxygen #3] Oxygen Flow Rate (L/min) [ 5 AMBULATING with Oxygen #2] Oxygen Flow Rate (L/min) [ 4 AMBULATING with Oxygen #1] Oxygen Flow Rate (L/min) [At 3 REST with Oxygen] Oxygen Flow Rate (L/min) 15 Oxygen Delivery Method Bi-pap Weight: 83.915 kg Body Mass Index (BMI) 28.0 Intake & Output: Intake and Output for Last 24 Hours 04/20/21 04/21/21 04/22/21 23:59 23:59 23:59 Intake Total 490 / 490 Output Total 1300 / 1300 1300 / 1300 Balance -810 / -810 -1300 / -1300 Lab / Micro Data Result Diagrams: 04/22/21 08:26 04/22/21 08:26 Labs: Laboratory Results - last 24 hr 04/21/21 11:59: POC Glucose 235 H 04/21/21 16:06: POC Glucose 297 H 04/21/21 21:18: POC Glucose 384 H 04/22/21 06:19: POC Glucose 177 H 04/22/21 08:26: WBC 9.4, RBC 5.08, Hgb 17.0 H, Hct 49.7, MCV 97.8 H, MCH 33.5 H, MCHC 34.2, RDW Std Deviation 46.2 H, RDW Coeff of Hernán 13.0, Plt Count 317, MPV 10.0, Immature Gran % (Auto) 2.000 H, Neut % (Auto) 79.6 H, Lymph % (Auto) 11.7 L, [place] % (Auto) 3.9, Eos % (Auto) 2.5, Baso % (Auto) 0.3, Absolute Neuts (auto) 7.5, Absolute Lymphs (auto) 1.10, Nucleated RBC % 0 04/22/21 08:26: Sodium 139, Potassium 3.7, Chloride 102, Carbon Dioxide 29.0, Anion Gap 8, BUN 30 H, Creatinine 1.22, Estim Creat Clear Calc 68.52, Est GFR (MDRD) Af Amer 80, Est GFR (MDRD) Non-Af 66, BUN/Creatinine Ratio 24.6 H, Glucose 111 H, Calcium 9.4, Total Bilirubin 0.80, AST 29, ALT 26, Alkaline Phosphatase 86, Total Protein 8.4 H, Albumin 2.6 L, Globulin 5.8 H, Albumin/Globulin Ratio 0.4 L Micro: Microbiology 04/21/21 09:10 Sputum, Expectorated/Coughed Gram Stain - Final 04/16/21 06:03 Blood Culture (Wb) - Right Hand Blood Culture - Final No growth in 5 days. 04/16/21 05:57 Blood Culture (Wb) - Anticubital Left Blood Culture - Final No growth in 5 days. 04/20/21 13:20 Urine, Clean Catch Legionella Antigen - Final 04/20/21 13:20 Urine, Clean Catch Streptococcus pneumoniae Antigen (M - Final 04/16/21 Unknown Nasal Secretion SARS-CoV-2 Antigen (Rapid) - Final SARS-CoV-2 (COVID 19) Physical Exam Const alert, oriented x3 and no apparent distress Constitutional Narrative: Mild conversational dyspnea. Does desaturate with conversation. General Appearance: cooperative Exam Limitations: no limitations HEENT normocephalic and head/scalp atraumatic Eyes PERRL and EOMs intact bilaterally Neck supple and No nodes Chest inspection of chest normal Chest: symmetrical chest wall rise; Negative for crepitus Resp Auscultation: diminished lung sounds; Negative for rales, rhonchi or wheezes Cardio regular rate, regular rhythm, S1 normal heart sound, S2 normal heart sound, no murmurs, no rub and no gallops GI normal to inspection, nondistended, normoactive bowel sounds no CVA tenderness Extremity no clubbing, cyanosis or edema Skin no rashes or lesions noted Neuro CN's II-XII intact bilaterally Psych mental status grossly normal, thought process normal, cooperative, affect normal and speech normal Charges/Coding Visit Charges Inpatient E&M: 07405 Subs Hosp L3
--- NOTE | 2021-04-22 11:12 | CASEMGMT ---
Addendum entered by Arlen Bell 04/22/21 15:09: Correction, pt is on 15 Liters Oxygen bled through Home Bipap. SW in to speak with pt. SW introduced self and role at [facility]. Pt states that he is doing better and he is in better sprits today. SW asked pt about any Mental Health Hx. Pt states everyone has some Anxiety and Depression, nothing clinical though. Pt states he isn't on any medication, states he isn't in any counseling. Pt denied any history of suicidal thoughts/plans/ideations. PT denied any current suicidal thoughts/plans/ideations. SW offered support to pt. Pt denied any additional needs or concerns at this time. Original Note: Social Work Note SW overheard RN yesterday stating pt is depressed. SW reviewed chart, pt currently on Bipap. SW will speak with pt regarding his depression once pt is off Bipap. Arlen Bell BALANCE WHEEL HAND FILER, TRANSPORTATION ENGINEERING TECHNICIAN
[2021-04-22 12:46] LABS: Bedside Glucose 281 mg/dL (70-110)
[2021-04-22 16:16] LABS: Bedside Glucose 473 mg/dL (70-110)
[2021-04-22] MEDS: Insulin Lispro 100 UNIT/ML INSULN.PEN 10 UNIT SC (17:26)
[2021-04-22] MEDS: Ascorbic Acid 500 MG Tablet 1000 MG PO (21:28)
[2021-04-22 21:40] LABS: Bedside Glucose 267 mg/dL (70-110)
[2021-04-23] VITALS (8 sets, daily range): BP systolic 96–116; BP diastolic 65–76; PULSE 63–87; RESP 18–20; TEMP 36.4–37.1; O2SAT 92–95
[2021-04-23] MEDS: Acetaminophen 325 MG Tablet 650 MG PO ×2 (03:48→21:11)
[2021-04-23 06:30] LABS: Bedside Glucose 136 mg/dL (70-110)
[2021-04-23 07:47] LABS: Absolute Lymphocyte Count 0.85 X10^3/uL (0.83-4.51); Absolute Neutrophil Count 6.3 X10^3/uL (2.0-7.7); Basophil# 0.03 X10^3/uL; Basophil% 0.4 % (0-1); Eosinophil# 0.16 X10^3/uL; Hematocrit 45.9 % (40-54); Hemoglobin 15.6 g/dL (13.0-16.5); Lymphocyte # 0.85 X10^3/ul (0.83-4.51); Lymphocyte % 10.8 % (19-41); Mean Corpuscular Hgb 33.4 pg (27.0-32.0); Mean Corpuscular Volume 98.3 fL (80-94); Monocyte# 0.37 X10^3/uL; Monocyte% 4.7 % (0-10); NRBC Flagged by Analyzer 0 % (0-5); Neutrophil # 6.29 X10^3/uL (2.7-7.7); Neutrophil % 79.6 % (47-70); Platelet Count 281 K/mm3 (150-450); RBC Distribution Width CV 12.9 % (11.6-14.6); RBC Distribution Width SD 46.8 fl (35.1-43.9); Red Blood Count 4.67 M/mm3 (4.6-6.2); White Blood Count 7.9 K/mm3 (4.4-11.0)
--- NOTE | 2021-04-23 07:57 | PCM.PN.HOSP ---
Subjective Subjective Follow-up on acute respiratory failure secondary to COVID-19 pneumonia: Patient seen and examined. He remains on 15 L of oxygen. No acute events overnight. Objective Data Objective Data Vital Signs: Vital Signs Temp Pulse Resp BP Pulse Ox 98 F 63 18 96/74 93 04/23/21 03:50 04/23/21 03:50 04/23/21 03:50 04/23/21 03:50 04/23/21 03:50 Oxygen Flow Rate (L/min) [ 6 AMBULATING with Oxygen #3] Oxygen Flow Rate (L/min) [ 5 AMBULATING with Oxygen #2] Oxygen Flow Rate (L/min) [ 4 AMBULATING with Oxygen #1] Oxygen Flow Rate (L/min) [At 3 REST with Oxygen] Oxygen Flow Rate (L/min) 15 Oxygen Delivery Method Bi-pap Weight: 83.915 kg Body Mass Index (BMI) 28.0 Intake & Output: Intake and Output for Last 24 Hours 04/21/21 04/22/21 04/23/21 23:59 23:59 23:59 Output Total 1300 / 1300 Balance -1300 / -1300 Lab / Micro Data Result Diagrams: 04/23/21 06:40 04/23/21 06:40 Labs: Laboratory Results - last 24 hr 04/22/21 08:26: WBC 9.4, RBC 5.08, Hgb 17.0 H, Hct 49.7, MCV 97.8 H, MCH 33.5 H, MCHC 34.2, RDW Std Deviation 46.2 H, RDW Coeff of Hernán 13.0, Plt Count 317, MPV 10.0, Immature Gran % (Auto) 2.000 H, Neut % (Auto) 79.6 H, Lymph % (Auto) 11.7 L, [place] % (Auto) 3.9, Eos % (Auto) 2.5, Baso % (Auto) 0.3, Absolute Neuts (auto) 7.5, Absolute Lymphs (auto) 1.10, Nucleated RBC % 0 04/22/21 08:26: Sodium 139, Potassium 3.7, Chloride 102, Carbon Dioxide 29.0, Anion Gap 8, BUN 30 H, Creatinine 1.22, Estim Creat Clear Calc 68.52, Est GFR (MDRD) Af Amer 80, Est GFR (MDRD) Non-Af 66, BUN/Creatinine Ratio 24.6 H, Glucose 111 H, Calcium 9.4, Total Bilirubin 0.80, AST 29, ALT 26, Alkaline Phosphatase 86, Total Protein 8.4 H, Albumin 2.6 L, Globulin 5.8 H, Albumin/Globulin Ratio 0.4 L 04/22/21 11:30: POC Glucose 281 H 04/22/21 16:07: POC Glucose 473 H* 04/22/21 21:24: POC Glucose 267 H 04/23/21 06:23: POC Glucose 136 H 04/23/21 06:40: WBC 7.9, RBC 4.67, Hgb 15.6, Hct 45.9, MCV 98.3 H, MCH 33.4 H, MCHC 34.0, RDW Std Deviation 46.8 H, RDW Coeff of Hernán 12.9, Plt Count 281, MPV 10.0, Immature Gran % (Auto) 2.500 H, Neut % (Auto) 79.6 H, Lymph % (Auto) 10.8 L, Hanson % (Auto) 4.7, Eos % (Auto) 2.0, Baso % (Auto) 0.4, Absolute Neuts (auto) 6.3, Absolute Lymphs (auto) 0.85, Nucleated RBC % 0 Micro: Microbiology 04/21/21 09:10 Sputum, Expectorated/Coughed Gram Stain - Final 04/21/21 09:10 Sputum, Expectorated/Coughed Respiratory Culture - Preliminary Appears to be normal respiratory keith. Further studies to follow. 04/16/21 06:03 Blood Culture (Wb) - Right Hand Blood Culture - Final No growth in 5 days. 04/16/21 05:57 Blood Culture (Wb) - Anticubital Left Blood Culture - Final No growth in 5 days. 04/20/21 13:20 Urine, Clean Catch Legionella Antigen - Final 04/20/21 13:20 Urine, Clean Catch Streptococcus pneumoniae Antigen (M - Final 04/16/21 Unknown Nasal Secretion SARS-CoV-2 Antigen (Rapid) - Final SARS-CoV-2 (COVID 19) Physical Exam Narrative Physical exam: General: Alert, Oriented x3, Cooperative, on 15 L of oxygen HEENT: Atraumatic Oral: Moist Mucosa Neck: Supple Lungs: Diminished to auscultation Cardiovascular: HS I+II, regular, no murmurs Abdomen: Bowel Sounds Present, Soft, Non Tender Extremities: No edema Assessment & Plan Assessment/Plan (1) COVID: (2) Acute respiratory failure with hypoxia: (3) Hypokalemia: (4) Elevated d-dimer: (5) KAREN (obstructive sleep apnea): (6) Hypertension: QUALIFIERS: Hypertension type: unspecified Qualified Code(s): I10 - Essential (primary) hypertension (7) Hyperlipidemia: QUALIFIERS: Hyperlipidemia type: unspecified Qualified Code(s): E78.5 - Hyperlipidemia, unspecified (8) Type 2 diabetes mellitus without complications: QUALIFIERS: Diabetes mellitus remote computer terminal operator insulin use: without nursing home use Qualified Code(s): E11.9 - Type 2 diabetes mellitus without complications PLAN: 1. Acute respiratory failure secondary to acute COVID-19 pneumonia, Remains on 15 L of oxygen He has been vaccinated with the Pfizer vaccine; he got his second dose right about the time his symptoms started Chest x-ray had shown bilateral airspace disease; CTA of the chest was negative for acute PE but showed bilateral airspace disease Currently on remdesivir, dexamethasone and Baracitinib ID and pulmonary following 2. Hypokalemia, replaced 3. Acute on chronic back pain, history of back injections, improved Continue Lidoderm patches as well as oxycodone 4. Elevated D-dimer, acute PE ruled out, Will continue to treat empirically for acute PE 5. Type II DM, blood sugars remain not at goal, renal function is at baseline Continue on Lantus, ISS, blood glucose checks continue on dapagliflozin, glimepiride and Metformin 6. Hypertension, controlled, continue on losartan Charges/Coding Visit Charges Inpatient E&M: 62619 Subs Hosp L3
[2021-04-23 08:07] LABS: ALB/GLOB Ratio 0.5 RATIO (0.9-2.4); AST(SGOT) 23 U/L (15-37); Alanine Aminotransfer ALT/SGPT 23 U/L (16-61); Albumin, Serum 2.3 g/dL (3.2-5.0); Alkaline Phosphatase 72 U/L (45-117); Anion Gap 8 (5-15); BUN 32 mg/dL (7-18); BUN/Creat Ratio 28.3 RATIO (10-20); Calcium,Total 9.1 mg/dL (8.5-10.1); Chloride 104 mmol/L (98-107); Creatinine, Serum 1.13 mg/dL (0.70-1.30); EST Glomerular Filtration Rate 72 mL/min (>60); Est Glom Filt Rate - Afr Amer 88 mL/min (>60); Estimated Creatinine Clearance 73.98 ml/min; Globulin 5.1 g/dL (2.2-4.2); Glucose 119 mg/dL (74-106); Potassium 3.9 mmol/L (3.5-5.1); Protein, Total 7.4 g/dL (6.4-8.2); Sodium Level 138 mmol/L (136-145)
[2021-04-23] MEDS: Glimepiride 1 MG Tablet PO (09:13)
[2021-04-23] MEDS: Ascorbic Acid 500 MG Tablet 1000 MG PO ×2 (09:31→21:09)
[2021-04-23] MEDS: Pravastatin 20 MG Tablet PO (09:32)
[2021-04-23] MEDS: Empagliflozin 25 MG Tablet PO (09:32)
[2021-04-23] MEDS: Fluticasone 0.05% 1 SPRAY NASAL.SRY 2 SPRAY NASAL (09:35)
[2021-04-23] MEDS: Losartan Potassium 25 MG Tablet PO (09:35)
[2021-04-23] MEDS: Pantoprazole Sodium 40 MG Tablet PO (09:35)
[2021-04-23] MEDS: dexAMETHasone 10 MG/ML Vial 6 MG IV (09:36)
[2021-04-23] MEDS: Lidocaine 5% Patch 2 PATCH TOPICAL (09:38)
[2021-04-23] MEDS: 0.9% Saline Lock 10 ML Syringe IV (09:41)
[2021-04-23] MEDS: Gemfibrozil 600 MG Tablet PO ×2 (09:43→21:09)
[2021-04-23] MEDS: Enoxaparin 80 MG/0.8 ML Syringe SC ×2 (09:55→21:09)
--- NOTE | 2021-04-23 11:00 | PCM.PN.ID ---
Physical Exam Narrative Feeling better, impatient. No fever, no n/v/d. Const alert and no apparent distress General Appearance: cooperative Resp clear to auscultation bilaterally Auscultation: diminished lung sounds Cardio regular rate and regular rhythm GI normal to inspection, nondistended, normoactive bowel sounds Skin no rashes or lesions noted ID ID: Route of nutrition/ use of supplements: [] Nutritional Intake: [] IV Site: [] Alvarado Catheter: [] Assessment & Plan Assessment/Plan (1) Acute respiratory failure with hypoxia: (2) COVID: PLAN: Sx started 04/09. Got 2nd vaccine dose right around that time. On dex, completed remdesivir. CT neg for PE. Isolate until 04/28. Cont baricitinib. Will follow
[2021-04-23] MEDS: Insulin Lispro 100 UNIT/ML INSULN.PEN SC ×3 (11:33→21:10)
[2021-04-23 11:46] LABS: Bedside Glucose 253 mg/dL (70-110)
--- NOTE | 2021-04-23 14:14 | PN.CC_ITS ---
Assessment & Plan Assessment/Plan (1) COVID: (2) KAREN (obstructive sleep apnea): (3) Type 2 diabetes mellitus without complications: QUALIFIERS: Diabetes mellitus prison insulin use: without prison use Qualified Code(s): E11.9 - Type 2 diabetes mellitus without complications PLAN: RECOMMENDATIONS: 1. Continue supplemental oxygen as needed to keep saturations greater than 90% 2. Challenge with diuretics as renal function allows. No doses today 3. Aggressive electrolyte repletion as indicated 4. Encourage Acapella, incentive spirometer and prone positioning as able 5. Continue Decadron and baricitinib 6. Continue control of hyperglycemia 7. Transition to therapeutic anticoagulation IMPRESSIONS: 1. Acute hypoxic respiratory failure secondary to COVID-19 Patient with extensive bilateral groundglass opacities on presentation. Patient has had worsening in oxygenation since presentation. This may be secondary to progression of disease as patient did present relatively early. However, patient is also positive almost 5 L from a fluid status standpoint. Would recommend diuresis as tolerated. Patient did not respond to diuresis over 2 days. This morning, patient was placed on therapeutic Lovenox and throughout the day it appears as though oxygenation is improving. Humidification will be added to nasal cannula. Patient can move BiPAP to with sleep only. Wean oxygen as tolerated. Response to anticoagulation is suggestive of subclinical pulmonary emboli. 2. KAREN/psoriatic arthritis/hypertension/hyperlipidemia/diabetes mellitus type 2 Complicates care, management, recovery and prognosis. Okay to continue with baseline medications. Patient may require additional insulin therapy to maintain euglycemia. Subjective Subjective Patient overall feels subjectively unchanged compared to previous. However, on my evaluation the patient was on 15 L nasal cannula and was able to ambulate to the bathroom to shave. Patient saturations were noted to be in the mid 90s on the settings. Patient overall is not reporting any bleeding such as epistaxis, hemoptysis, melena or hematochezia. Patient does report that he has a history of sinus issues and has had epistaxis previously requiring ENT. Patient did report that he has been having some cramps in his right leg for the last 3 to 5 days, but thought it was secondary to the bed and chair. Objective Data Objective Data Vital Signs: Vital Signs Temp Pulse Resp BP Pulse Ox 36.5 C L 87 18 110/72 92 04/23/21 09:15 04/23/21 09:15 04/23/21 09:15 04/23/21 09:15 04/23/21 09:49 Oxygen Flow Rate (L/min) [ 6 AMBULATING with Oxygen #3] Oxygen Flow Rate (L/min) [ 5 AMBULATING with Oxygen #2] Oxygen Flow Rate (L/min) [ 4 AMBULATING with Oxygen #1] Oxygen Flow Rate (L/min) [At 3 REST with Oxygen] Oxygen Flow Rate (L/min) 15 Oxygen Delivery Method Bi-pap Weight: 83.915 kg Body Mass Index (BMI) 28.0 Intake & Output: Intake and Output for Last 24 Hours 04/21/21 04/22/21 04/23/21 23:59 23:59 23:59 Output Total 1300 / 1300 Balance -1300 / -1300 Lab / Micro Data Result Diagrams: 04/23/21 06:40 04/23/21 06:40 Labs: Laboratory Results - last 24 hr 04/22/21 16:07: POC Glucose 473 H* 04/22/21 21:24: POC Glucose 267 H 04/23/21 06:23: POC Glucose 136 H 04/23/21 06:40: WBC 7.9, RBC 4.67, Hgb 15.6, Hct 45.9, MCV 98.3 H, MCH 33.4 H, MCHC 34.0, RDW Std Deviation 46.8 H, RDW Coeff of Hernán 12.9, Plt Count 281, MPV 10.0, Immature Gran % (Auto) 2.500 H, Neut % (Auto) 79.6 H, Lymph % (Auto) 10.8 L, [place] % (Auto) 4.7, Eos % (Auto) 2.0, Baso % (Auto) 0.4, Absolute Neuts (auto) 6.3, Absolute Lymphs (auto) 0.85, Nucleated RBC % 0 04/23/21 06:40: Sodium 138, Potassium 3.9, Chloride 104, Carbon Dioxide 26.0, A nion Gap 8, BUN 32 H, Creatinine 1.13, Estim Creat Clear Calc 73.98, Est GFR (MDRD) Af Amer 88, Est GFR (MDRD) Non-Af 72, BUN/Creatinine Ratio 28.3 H, Glucose 119 H, Calcium 9.1, Total Bilirubin 0.70, AST 23, ALT 23, Alkaline Phosp hatase 72, Total Protein 7.4, Albumin 2.3 L, Globulin 5.1 H, Albumin/Globulin Ratio 0.5 L 04/23/21 11:30: POC Glucose 253 H Micro: Microbiology 04/21/21 09:10 Sputum, Expectorated/Coughed Gram Stain - Final 04/21/21 09:10 Sputum, Expectorated/Coughed Respiratory Culture - Final Presumptive C albicans Mixed Viola 04/16/21 06:03 Blood Culture (Wb) - Right Hand Blood Culture - Final No growth in 5 days. 04/16/21 05:57 Blood Culture (Wb) - Anticubital Left Blood Culture - Final No growth in 5 days. 04/20/21 13:20 Urine, Clean Catch Legionella Antigen - Final 04/20/21 13:20 Urine, Clean Catch Streptococcus pneumoniae Antigen (M - Final 04/16/21 Unknown Nasal Secretion SARS-CoV-2 Antigen (Rapid) - Final SARS-CoV-2 (COVID 19) Physical Exam Const alert, oriented x3 and no apparent distress Constitutional Narrative: Mild conversational dyspnea. Does not desaturate with conversation on 15 L nasal cannula. General Appearance: cooperative Exam Limitations: no limitations HEENT normocephalic and head/scalp atraumatic Eyes PERRL and EOMs intact bilaterally Neck supple and No nodes Chest inspection of chest normal Chest: symmetrical chest wall rise; Negative for crepitus Resp Auscultation: diminished lung sounds; Negative for rales, rhonchi or wheezes Cardio regular rate, regular rhythm, S1 normal heart sound, S2 normal heart sound, no murmurs, no rub and no gallops GI normal to inspection, nondistended, normoactive bowel sounds no CVA tenderness Extremity no clubbing, cyanosis or edema Skin no rashes or lesions noted Neuro CN's II-XII intact bilaterally Psych mental status grossly normal, thought process normal, cooperative, affect normal and speech normal Charges/Coding Visit Charges Inpatient E&M: 72841 Subs Hosp L3
--- NOTE | 2021-04-23 16:15 | CHAPLAIN ---
Type of Pastoral Visit ___ Initial Visit ___ Follow-up Visit ___ On-call Visit ___ General Patient Visit ___ Spiritual Assessment ___ Family Conference ___ Bereavement ___ Rapid Response ___ Code Blue _x__ Other (describe below) Pastoral Care Referral From _x__ Patient ___ Family ___ Nurse ___ Physician ___ Pulp Roller ___ Mixer Runner ___ Other (describe below) Sacrament/Intervention _x__ Active listening ___ Anointing ___ Bahai ___ Bereavement ___ Communion _x__ Nicole exploration ___ ___ Life review ___ Prayer ___ Reconciliation ___ Sacrament of Sick _x__ Supportive presence ___ Wedding ___ Other (describe below) Pastoral Comments patient answers phone on first ring and is able to talk; pt welcomes spiritual care support; pt reveals that his sister and [id number] recently of COVID and that I'm just fighting so I can get out of here; pt has family support and spiritual foundation; pt talks about what he wants to do when he does get out of here and expresses his nicole
[2021-04-23] MEDS: Neomycin/Bacitracin/Polymyxin Ointment 1 APPLIC TOPICAL (17:05)
[2021-04-23 17:11] LABS: Bedside Glucose 245 mg/dL (70-110)
[2021-04-23 21:56] LABS: Bedside Glucose 327 mg/dL (70-110)
[2021-04-24] MEDS: Acetaminophen 325 MG Tablet 650 MG PO ×2 (03:41→21:04)
[2021-04-24 03:44] VITALS: BP 108/64; PULSE 76; RESP 18; TEMP 36.3; O2SAT 95
[2021-04-24 06:34] LABS: Absolute Neutrophil Count 6.2 X10^3/uL (2.0-7.7); Basophil# 0.01 X10^3/uL; Basophil% 0.1 % (0-1); Eosinophil# 0.14 X10^3/uL; Eosinophils% 1.8 % (0-5); Hematocrit 43.8 % (40-54); Hemoglobin 14.9 g/dL (13.0-16.5); Lymphocyte % 9.1 % (19-41); Mean Corpuscular Hgb 33.6 pg (27.0-32.0); Mean Corpuscular Volume 98.6 fL (80-94); Monocyte# 0.44 X10^3/uL; Monocyte% 5.7 % (0-10); NRBC Flagged by Analyzer 0 % (0-5); Neutrophil # 6.18 X10^3/uL (2.7-7.7); Neutrophil % 79.9 % (47-70); Platelet Count 270 K/mm3 (150-450); RBC Distribution Width CV 12.9 % (11.6-14.6); RBC Distribution Width SD 46.5 fl (35.1-43.9); Red Blood Count 4.44 M/mm3 (4.6-6.2); White Blood Count 7.7 K/mm3 (4.4-11.0)
[2021-04-24 06:50] VITALS: O2SAT 93
[2021-04-24] MEDS: Insulin Lispro 100 UNIT/ML INSULN.PEN SC ×4 (06:51→21:02)
[2021-04-24 07:01] LABS: Bedside Glucose 171 mg/dL (70-110)
[2021-04-24 07:03] LABS: ALB/GLOB Ratio 0.5 RATIO (0.9-2.4); AST(SGOT) 20 U/L (15-37); Alanine Aminotransfer ALT/SGPT 20 U/L (16-61); Albumin, Serum 2.3 g/dL (3.2-5.0); Alkaline Phosphatase 73 U/L (45-117); Anion Gap 6 (5-15); BUN 26 mg/dL (7-18); BUN/Creat Ratio 24.1 RATIO (10-20); Calcium,Total 8.7 mg/dL (8.5-10.1); Chloride 105 mmol/L (98-107); Creatinine, Serum 1.08 mg/dL (0.70-1.30); EST Glomerular Filtration Rate 76 mL/min (>60); Est Glom Filt Rate - Afr Amer 92 mL/min (>60); Estimated Creatinine Clearance 77.41 ml/min; Glucose 148 mg/dL (74-106); Potassium 3.7 mmol/L (3.5-5.1); Protein, Total 7.3 g/dL (6.4-8.2); Sodium Level 136 mmol/L (136-145)
[2021-04-24 08:00] VITALS: BP 95/73; PULSE 61; RESP 18; TEMP 36.6; O2SAT 92
[2021-04-24] MEDS: Glimepiride 1 MG Tablet PO (08:17)
[2021-04-24] MEDS: Potassium Chloride Oral Tablet 20 MEQ 40 MEQ PO (08:17)
--- NOTE | 2021-04-24 08:17 | PN.CC_ITS ---
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 Continue supplemental oxygen as needed to keep saturations greater than 90% 2. Challenge with diuretics as renal function allows. Dose Lasix today 3. Aggressive electrolyte repletion as indicated 4. Encourage Acapella, incentive spirometer and prone positioning as able 5. Continue Decadron and baricitinib 6. Continue control of hyperglycemia 7. Continue therapeutic anticoagulation IMPRESSIONS: 1. Acute hypoxic respiratory failure secondary to COVID-19 Patient with extensive bilateral groundglass opacities on presentation. Patient has had worsening in oxygenation since presentation. This may be secondary to progression of disease as patient did present relatively early. However, patient is also positive almost 5 L from a fluid status standpoint. Would recommend diuresis as tolerated. Patient did not respond to diuresis over 2 days. Patient appears to be responding well to therapeutic anticoagulation. Likely continue anticoagulation with a 10 a inhibitor for at least 3 months after discharge given rapid improvement after initiation. Patient can move BiPAP to with sleep only. Wean oxygen as tolerated. Response to anticoagulation is suggestive of subclinical pulmonary emboli. 2. KAREN/psoriatic arthritis/hypertension/hyperlipidemia/diabetes mellitus type 2 Complicates care, management, recovery and prognosis. Okay to continue with baseline medications. Patient may require additional insulin therapy to maintain euglycemia. Subjective Subjective Patient did okay overnight. Patient states he woke up at about 330 this morning and was unable to get back to sleep. Patient states he feels tired, but attributes this to not sleeping well. Patient has not reported any epistaxis. Objective Data Objective Data Vital Signs: Vital Signs Temp Pulse Resp BP Pulse Ox 36.6 C 61 18 95/73 92 04/24/21 08:00 04/24/21 08:00 04/24/21 08:00 04/24/21 08:00 04/24/21 08:00 Oxygen Flow Rate (L/min) [ 6 AMBULATING with Oxygen #3] Oxygen Flow Rate (L/min) [ 5 AMBULATING with Oxygen #2] Oxygen Flow Rate (L/min) [ 4 AMBULATING with Oxygen #1] Oxygen Flow Rate (L/min) [At 3 REST with Oxygen] Oxygen Flow Rate (L/min) 11 Oxygen Delivery Method Nasal Cannula Weight: 83.915 kg Body Mass Index (BMI) 28.0 Intake & Output: Intake and Output for Last 24 Hours 04/22/21 04/23/21 04/24/21 23:59 23:59 23:59 Output Total 1300 / 1300 Balance -1300 / -1300 Lab / Micro Data Result Diagrams: 04/24/21 05:38 04/24/21 05:38 Labs: Laboratory Results - last 24 hr 04/23/21 11:30: POC Glucose 253 H 04/23/21 16:50: POC Glucose 245 H 04/23/21 21:03: POC Glucose 327 H 04/24/21 05:38: WBC 7.7, RBC 4.44 L, Hgb 14.9, Hct 43.8, MCV 98.6 H, MCH 33.6 H, MCHC 34.0, RDW Std Deviation 46.5 H, RDW Coeff of Hernán 12.9, Plt Count 270, MPV 10.0, Immature Gran % (Auto) 3.400 H, Neut % (Auto) 79.9 H, Lymph % (Auto) 9.1 L , [place] % (Auto) 5.7, Eos % (Auto) 1.8, Baso % (Auto) 0.1, Absolute Neuts (auto) 6.2, Absolute Lymphs (auto) 0.70 L, Nucleated RBC % 0 04/24/21 05:38: Sodium 136, Potassium 3.7, Chloride 105, Carbon Dioxide 25.0, Anion Gap 6, BUN 26 H, Creatinine 1.08, Estim Creat Clear Calc 77.41, Est GFR (MDRD) Af Amer 92, Est GFR (MDRD) Non-Af 76, BUN/Creatinine Ratio 24.1 H, Glucose 148 H, Calcium 8.7, Total Bilirubin 0.90, AST 20, ALT 20, Alkaline Phosphatase 73, Total Protein 7.3, Albumin 2.3 L, Globulin 5.0 H, Albumin/Globulin Ratio 0.5 L 04/24/21 06:50: POC Glucose 171 H Micro: Microbiology 04/21/21 09:10 Sputum, Expectorated/Coughed Gram Stain - Final 04/21/21 09:10 Sputum, Expectorated/Coughed Respiratory Culture - Final Presumptive C albicans Mixed Viola 04/16/21 06:03 Blood Culture (Wb) - Right Hand Blood Culture - Final No growth in 5 days. 04/16/21 05:57 Blood Culture (Wb) - Anticubital Left Blood Culture - Final No growth in 5 days. 04/20/21 13:20 Urine, Clean Catch Legionella Antigen - Final 04/20/21 13:20 Urine, Clean Catch Streptococcus pneumoniae Antigen (M - Final 04/16/21 Unknown Nasal Secretion SARS-CoV-2 Antigen (Rapid) - Final SARS-CoV-2 (COVID 19) Physical Exam Const alert, oriented x3 and no apparent distress Constitutional Narrative: Mild conversational dyspnea. Does not desaturate with conversation on 11 L nasal cannula. General Appearance: cooperative Exam Limitations: no limitations HEENT normocephalic and head/scalp atraumatic Eyes PERRL and EOMs intact bilaterally Neck supple and No nodes Chest inspection of chest normal Chest: symmetrical chest wall rise; Negative for crepitus Resp Auscultation: diminished lung sounds; Negative for rales, rhonchi or wheezes Cardio regular rate, regular rhythm, S1 normal heart sound, S2 normal heart sound, no murmurs, no rub and no gallops GI normal to inspection, nondistended, normoactive bowel sounds no CVA tenderness Extremity no clubbing, cyanosis or edema Skin no rashes or lesions noted Neuro CN's II-XII intact bilaterally Psych mental status grossly normal, thought process normal, cooperative, affect normal and speech normal Charges/Coding Visit Charges Inpatient E&M: 91597 Subs Hosp L3
[2021-04-24] MEDS: Pantoprazole Sodium 40 MG Tablet PO (09:42)
[2021-04-24] MEDS: Furosemide 20 MG Tablet PO ×2 (09:42→16:34)
[2021-04-24] MEDS: Ascorbic Acid 500 MG Tablet 1000 MG PO ×2 (09:42→20:56)
[2021-04-24] MEDS: Enoxaparin 80 MG/0.8 ML Syringe SC ×2 (09:43→20:56)
[2021-04-24] MEDS: Losartan Potassium 25 MG Tablet PO (09:43)
[2021-04-24] MEDS: dexAMETHasone 10 MG/ML Vial 6 MG IV (09:44)
[2021-04-24] MEDS: Gemfibrozil 600 MG Tablet PO ×2 (09:45→20:56)
[2021-04-24] MEDS: Fluticasone 0.05% 1 SPRAY NASAL.SRY 2 SPRAY NASAL (09:45)
[2021-04-24] MEDS: Neomycin/Bacitracin/Polymyxin Ointment 1 APPLIC TOPICAL (09:47)
[2021-04-24] MEDS: Pravastatin 20 MG Tablet PO (09:48)
[2021-04-24] MEDS: Lidocaine 5% Patch 2 PATCH TOPICAL (09:51)
[2021-04-24] MEDS: Empagliflozin 25 MG Tablet PO (10:30)
[2021-04-24 10:41] VITALS: O2SAT 90
[2021-04-24 12:16] LABS: Bedside Glucose 203 mg/dL (70-110)
[2021-04-24 13:58] VITALS: BP 107/72; PULSE 70; RESP 18; TEMP 37; O2SAT 94
[2021-04-24 16:56] LABS: Bedside Glucose 360 mg/dL (70-110)
--- NOTE | 2021-04-24 17:04 | PN.HOSP_ITS ---
Subjective Subjective Follow-up on acute respiratory failure secondary to COVID-19 pneumonia: Patient was seen and examined. Currently on 10 L. No acute events. Objective Data Objective Data Vital Signs: Vital Signs Temp Pulse Resp BP Pulse Ox 98.6 F 70 18 107/72 94 04/24/21 13:58 04/24/21 13:58 04/24/21 13:58 04/24/21 13:58 04/24/21 13:58 Oxygen Flow Rate (L/min) [ 6 AMBULATING with Oxygen #3] Oxygen Flow Rate (L/min) [ 5 AMBULATING with Oxygen #2] Oxygen Flow Rate (L/min) [ 4 AMBULATING with Oxygen #1] Oxygen Flow Rate (L/min) [At 3 REST with Oxygen] Oxygen Flow Rate (L/min) 10 Oxygen Delivery Method Nasal Cannula Weight: 83.915 kg Body Mass Index (BMI) 28.0 Intake & Output: Intake and Output for Last 24 Hours 04/22/21 04/23/21 04/24/21 23:59 23:59 23:59 Output Total 1300 / 1300 Balance -1300 / -1300 Lab / Micro Data Result Diagrams: 04/24/21 05:38 04/24/21 05:38 Labs: Laboratory Results - last 24 hr 04/23/21 16:50: POC Glucose 245 H 04/23/21 21:03: POC Glucose 327 H 04/24/21 05:38: WBC 7.7, RBC 4.44 L, Hgb 14.9, Hct 43.8, MCV 98.6 H, MCH 33.6 H, MCHC 34.0, RDW Std Deviation 46.5 H, RDW Coeff of Hernán 12.9, Plt Count 270, MPV 10.0, Immature Gran % (Auto) 3.400 H, Neut % (Auto) 79.9 H, Lymph % (Auto) 9.1 L , [place] % (Auto) 5.7, Eos % (Auto) 1.8, Baso % (Auto) 0.1, Absolute Neuts (auto) 6.2, Absolute Lymphs (auto) 0.70 L, Nucleated RBC % 0 04/24/21 05:38: Sodium 136, Potassium 3.7, Chloride 105, Carbon Dioxide 25.0, Anion Gap 6, BUN 26 H, Creatinine 1.08, Estim Creat Clear Calc 77.41, Est GFR (MDRD) Af Amer 92, Est GFR (MDRD) Non-Af 76, BUN/Creatinine Ratio 24.1 H, Glucose 148 H, Calcium 8.7, Total Bilirubin 0.90, AST 20, ALT 20, Alkaline Phosphatase 73, Total Protein 7.3, Albumin 2.3 L, Globulin 5.0 H, Albumin/Globulin Ratio 0.5 L 04/24/21 06:50: POC Glucose 171 H 04/24/21 11:41: POC Glucose 203 H 04/24/21 16:27: POC Glucose 360 H Micro: Microbiology 04/21/21 09:10 Sputum, Expectorated/Coughed Gram Stain - Final 04/21/21 09:10 Sputum, Expectorated/Coughed Respiratory Culture - Final Presumptive C albicans Mixed Viola 04/16/21 06:03 Blood Culture (Wb) - Right Hand Blood Culture - Final No growth in 5 days. 04/16/21 05:57 Blood Culture (Wb) - Anticubital Left Blood Culture - Final No growth in 5 days. 04/20/21 13:20 Urine, Clean Catch Legionella Antigen - Final 04/20/21 13:20 Urine, Clean Catch Streptococcus pneumoniae Antigen (M - Final 04/16/21 Unknown Nasal Secretion SARS-CoV-2 Antigen (Rapid) - Final SARS-CoV-2 (COVID 19) Physical Exam Narrative Physical exam: General: Alert, Oriented x3, Cooperative, on 10 L of oxygen HEENT: Atraumatic Oral: Moist Mucosa Neck: Supple Lungs: Diminished to auscultation Cardiovascular: HS I+II, regular, no murmurs Abdomen: Bowel Sounds Present, Soft, Non Tender Extremities: No edema Assessment & Plan Assessment/Plan (1) COVID: (2) Acute respiratory failure with hypoxia: (3) Hypokalemia: (4) Elevated d-dimer: (5) KAREN (obstructive sleep apnea): (6) Hypertension: QUALIFIERS: Hypertension type: unspecified Qualified Code(s): I10 - Essential (primary) hypertension (7) Hyperlipidemia: QUALIFIERS: Hyperlipidemia type: unspecified Qualified Code(s): E78.5 - Hyperlipidemia, unspecified (8) Type 2 diabetes mellitus without complications: QUALIFIERS: Diabetes mellitus fci insulin use: without direct support staff use Qualified Code(s): E11.9 - Type 2 diabetes mellitus without complica tions PLAN: 1. Acute respiratory failure secondary to acute COVID-19 pneumonia, improving Currently on 10 L of oxygen He has been vaccinated with the Pfizer vaccine; he got his second dose right about the time his symptoms started Chest x-ray had shown bilateral airspace disease; CTA of the chest was negative for acute PE but showed bilateral airspace disease Currently on, dexamethasone and Baracitinib ID and pulmonary following 2. Hypokalemia, replaced 3. Acute on chronic back pain, history of back injections, improved Continue Lidoderm patches as well as oxycodone 4. Elevated D-dimer, acute PE ruled out, Continue treatment empirically for acute PE 5. Type II DM, blood sugars remain not at goal, renal function is at baseline Continue on Lantus, ISS, blood glucose checks continue on dapagliflozin, glimepiride and Metformin 6. Hypertension, controlled, continue on losartan Charges/Coding Visit Charges Inpatient E&M: 55424 Subs Hosp L2
[2021-04-24 20:41] VITALS: BP 100/75; PULSE 61; RESP 18; TEMP 36.6; O2SAT 95
[2021-04-24 21:50] LABS: Bedside Glucose 253 mg/dL (70-110)
[2021-04-25] VITALS (10 sets, daily range): BP systolic 100–108; BP diastolic 68–90; PULSE 63–87; RESP 18–20; TEMP 36.3–37.1; O2SAT 90–96
[2021-04-25] MEDS: Acetaminophen 325 MG Tablet 650 MG PO ×3 (03:03→22:37)
[2021-04-25 06:30] LABS: Bedside Glucose 104 mg/dL (70-110)
[2021-04-25 07:51] LABS: Absolute Lymphocyte Count 0.87 X10^3/uL (0.83-4.51); Absolute Neutrophil Count 6.5 X10^3/uL (2.0-7.7); Basophil# 0.05 X10^3/uL; Basophil% 0.6 % (0-1); Eosinophil# 0.15 X10^3/uL; Eosinophils% 1.8 % (0-5); Hematocrit 46.4 % (40-54); Hemoglobin 15.2 g/dL (13.0-16.5); Lymphocyte # 0.87 X10^3/ul (0.83-4.51); Lymphocyte % 10.4 % (19-41); Mean Corp Hgb Conc 32.8 g/dL (32-36); Mean Corpuscular Hgb 32.9 pg (27.0-32.0); Mean Corpuscular Volume 100.4 fL (80-94); Mean Platelet Vol. 9.9 fl (6.2-12.0); Monocyte# 0.54 X10^3/uL; Monocyte% 6.4 % (0-10); NRBC Flagged by Analyzer 0 % (0-5); Neutrophil # 6.54 X10^3/uL (2.7-7.7); Neutrophil % 78.1 % (47-70); Platelet Count 238 K/mm3 (150-450); RBC Distribution Width CV 12.8 % (11.6-14.6); RBC Distribution Width SD 47.1 fl (35.1-43.9); Red Blood Count 4.62 M/mm3 (4.6-6.2); White Blood Count 8.4 K/mm3 (4.4-11.0)
--- NOTE | 2021-04-25 07:51 | PN.CC_ITS ---
Assessment & Plan Assessment/Plan (1) COVID: (2) KAREN (obstructive sleep apnea): (3) Type 2 diabetes mellitus without complications: QUALIFIERS: Diabetes mellitus chcf insulin use: without chcf use Qualified Code(s): E11.9 - Type 2 diabetes mellitus without complications PLAN: RECOMMENDATIONS: 1. Continue supplemental oxygen as needed to keep saturations greater than 90% 2. Challenge with diuretics as renal function allows. Await morning labs 3. Aggressive electrolyte repletion as indicated 4. Encourage Acapella, incentive spirometer and prone positioning as able 5. Continue Decadron (04/27/2021) and baricitinib (05/04/2021) 6. Continue control of hyperglycemia with titration of Lantus 7. Continue therapeutic anticoagulation IMPRESSIONS: 1. Acute hypoxic respiratory failure secondary to COVID-19 Patient with extensive bilateral groundglass opacities on presentation. Patient has had worsening in oxygenation since presentation. This may be secondary to progression of disease as patient did present relatively early. However, patient is also positive almost 5 L from a fluid status standpoint. Would recommend diuresis as tolerated. Patient did not respond to diuresis over 2 days, but appears to be responding well to therapeutic anticoagulation. Likely continue anticoagulation with a 10 a inhibitor for at least 3 months after discharge given rapid improvement after initiation. Patient can move ba seline BiPAP to with sleep only. Wean oxygen as tolerated. Response to anticoagulation is suggestive of subclinical pulmonary emboli. 2. KAREN/psoriatic arthritis/hypertension/hyperlipidemia/diabetes mellitus type 2 Complicates care, management, recovery and prognosis. Okay to continue with baseline medications. Patient may require additional insulin therapy to maintain euglycemia. Subjective Subjective Patient did well overnight. No acute issues were reported outside of poor sleep. Patient denies any pain. No epistaxis has been reported, but patient has had some sinus congestion. Objective Data Objective Data Vital Signs: Vital Signs Temp Pulse Resp BP Pulse Ox 36.4 C L 66 18 104/68 95 04/25/21 02:40 04/25/21 02:40 04/25/21 02:40 04/25/21 02:40 04/25/21 02:40 Oxygen Flow Rate (L/min) [ 6 AMBULATING with Oxygen #3] Oxygen Flow Rate (L/min) [ 5 AMBULATING with Oxygen #2] Oxygen Flow Rate (L/min) [ 4 AMBULATING with Oxygen #1] Oxygen Flow Rate (L/min) [At 3 REST with Oxygen] Oxygen Flow Rate (L/min) 10 Oxygen Delivery Method CPAP Weight: 83.915 kg Body Mass Index (BMI) 28.0 Intake & Output: Intake and Output for Last 24 Hours 04/23/21 04/24/21 04/25/21 23:59 23:59 23:59 Output Total 300 / 300 Balance -300 / -300 Lab / Micro Data Result Diagrams: 04/24/21 05:38 04/24/21 05:38 Labs: Laboratory Results - last 24 hr 04/24/21 11:41: POC Glucose 203 H 04/24/21 16:27: POC Glucose 360 H 04/24/21 21:01: POC Glucose 253 H 04/25/21 06:22: POC Glucose 104 Micro: Microbiology 04/21/21 09:10 Sputum, Expectorated/Coughed Gram Stain - Final 04/21/21 09:10 Sputum, Expectorated/Coughed Respiratory Culture - Final Presumptive C albicans Mixed Viola 04/16/21 06:03 Blood Culture (Wb) - Right Hand Blood Culture - Final No growth in 5 days. 04/16/21 05:57 Blood Culture (Wb) - Anticubital Left Blood Culture - Final No growth in 5 days. 04/20/21 13:20 Urine, Clean Catch Legionella Antigen - Final 04/20/21 13:20 Urine, Clean Catch Streptococcus pneumoniae Antigen (M - Final 04/16/21 Unknown Nasal Secretion SARS-CoV-2 Antigen (Rapid) - Final SARS-CoV-2 (COVID 19) Physical Exam Const alert, oriented x3 and no apparent distress Constitutional Narrative: No conversational dyspnea. Does not desaturate with conversation on 8 L nasal cannula. General Appearance: cooperative Exam Limitations: no limitations HEENT normocephalic and head/scalp atraumatic Eyes PERRL and EOMs intact bilaterally Neck supple and No nodes Chest inspection of chest normal Chest: symmetrical chest wall rise; Negative for crepitus Resp Auscultation: diminished lung sounds; Negative for rales, rhonchi or wheezes Cardio regular rate, regular rhythm, S1 normal heart sound, S2 normal heart sound, no murmurs, no rub and no gallops GI normal to inspection, nondistended, normoactive bowel sounds no CVA tenderness Extremity no clubbing, cyanosis or edema Skin no rashes or lesions noted Neuro CN's II-XII intact bilaterally Psych mental status grossly normal, thought process normal, cooperative, affect normal and speech normal Charges/Coding Visit Charges Inpatient E&M: 51020 Subs Hosp L2
[2021-04-25 08:27] LABS: ALB/GLOB Ratio 0.5 RATIO (0.9-2.4); AST(SGOT) 17 U/L (15-37); Alanine Aminotransfer ALT/SGPT 18 U/L (16-61); Albumin, Serum 2.4 g/dL (3.2-5.0); Alkaline Phosphatase 73 U/L (45-117); Anion Gap 8 (5-15); BUN 22 mg/dL (7-18); BUN/Creat Ratio 23.7 RATIO (10-20); Calcium,Total 8.7 mg/dL (8.5-10.1); Chloride 104 mmol/L (98-107); Creatinine, Serum 0.93 mg/dL (0.70-1.30); EST Glomerular Filtration Rate 91 mL/min (>60); Est Glom Filt Rate - Afr Amer 110 mL/min (>60); Estimated Creatinine Clearance 89.89 ml/min; Glucose 81 mg/dL (74-106); Potassium 3.7 mmol/L (3.5-5.1); Protein, Total 7.4 g/dL (6.4-8.2); Sodium Level 138 mmol/L (136-145)
[2021-04-25] MEDS: Lidocaine 5% Patch 2 PATCH TOPICAL (08:34)
[2021-04-25] MEDS: Glimepiride 1 MG Tablet PO (08:34)
[2021-04-25] MEDS: Enoxaparin 80 MG/0.8 ML Syringe SC ×2 (10:36→22:33)
[2021-04-25] MEDS: Pantoprazole Sodium 40 MG Tablet PO (10:37)
[2021-04-25] MEDS: Pravastatin 20 MG Tablet PO (10:37)
[2021-04-25] MEDS: Gemfibrozil 600 MG Tablet PO ×2 (10:37→22:32)
[2021-04-25] MEDS: Losartan Potassium 25 MG Tablet PO (10:37)
[2021-04-25] MEDS: Ascorbic Acid 500 MG Tablet 1000 MG PO ×2 (10:37→22:32)
[2021-04-25] MEDS: Potassium Chloride Oral Tablet 20 MEQ 40 MEQ PO (10:37)
[2021-04-25] MEDS: Neomycin/Bacitracin/Polymyxin Ointment 1 APPLIC TOPICAL (10:37)
[2021-04-25] MEDS: Empagliflozin 25 MG Tablet PO (10:37)
[2021-04-25] MEDS: 0.9% Saline Lock 10 ML Syringe IV ×2 (10:37→22:33)
[2021-04-25] MEDS: Furosemide 40 MG Tablet PO ×2 (10:37→18:20)
[2021-04-25] MEDS: dexAMETHasone 10 MG/ML Vial 6 MG IV (10:38)
[2021-04-25] MEDS: Sodium Chloride 0.65% 1 SPRAY SPRAY.BTL 2 SPRAY NASAL (10:38)
[2021-04-25] MEDS: Fluticasone 0.05% 1 SPRAY NASAL.SRY 2 SPRAY NASAL (10:40)
[2021-04-25] MEDS: Insulin Lispro 100 UNIT/ML INSULN.PEN SC ×3 (10:51→22:30)
[2021-04-25 12:40] LABS: Bedside Glucose 196 mg/dL (70-110)
--- NOTE | 2021-04-25 15:05 | PN.HOSP_ITS ---
Subjective Subjective Follow-up on acute respiratory failure secondary to COVID-19 pneumonia: Patient was seen and examined. Currently on 8L. No acute events. Objective Data Objective Data Vital Signs: Vital Signs Temp Pulse Resp BP Pulse Ox 98.7 F 87 20 H 108/69 91 04/25/21 12:58 04/25/21 12:58 04/25/21 12:58 04/25/21 12:58 04/25/21 14:02 Oxygen Flow Rate (L/min) [ 6 AMBULATING with Oxygen #3] Oxygen Flow Rate (L/min) [ 5 AMBULATING with Oxygen #2] Oxygen Flow Rate (L/min) [ 4 AMBULATING with Oxygen #1] Oxygen Flow Rate (L/min) [At 3 REST with Oxygen] Oxygen Flow Rate (L/min) 11 Oxygen Delivery Method Nasal Cannula Weight: 83.915 kg Body Mass Index (BMI) 28.0 Intake & Output: Intake and Output for Last 24 Hours 04/23/21 04/24/21 04/25/21 23:59 23:59 23:59 Output Total 300 / 300 Balance -300 / -300 Lab / Micro Data Result Diagrams: 04/25/21 06:31 04/25/21 06:31 Labs: Laboratory Results - last 24 hr 04/24/21 16:27: POC Glucose 360 H 04/24/21 21:01: POC Glucose 253 H 04/25/21 06:22: POC Glucose 104 04/25/21 06:31: WBC 8.4, RBC 4.62, Hgb 15.2, Hct 46.4, MCV 100.4 H, MCH 32.9 H, MCHC 32.8, RDW Std Deviation 47.1 H, RDW Coeff of Hernán 12.8, Plt Count 238, MPV 9.9, Immature Gran % (Auto) 2.700 H, Neut % (Auto) 78.1 H, Lymph % (Auto) 10.4 L , [place] % (Auto) 6.4, Eos % (Auto) 1.8, Baso % (Auto) 0.6, Absolute Neuts (auto) 6.5, Absolute Lymphs (auto) 0.87, Nucleated RBC % 0 04/25/21 06:31: Sodium 138, Potassium 3.7, Chloride 104, Carbon Dioxide 26.0, Anion Gap 8, BUN 22 H, Creatinine 0.93, Estim Creat Clear Calc 89.89, Est GFR (MDRD) Af Amer 110, Est GFR (MDRD) Non-Af 91, BUN/Creatinine Ratio 23.7 H, Glucose 81, Calcium 8.7, Total Bilirubin 0.80, AST 17, ALT 18, Alkaline Phosphatase 73, Total Protein 7.4, Albumin 2.4 L, Globulin 5.0 H, Albumin/Globulin Ratio 0.5 L 04/25/21 10:50: POC Glucose 196 H Micro: Microbiology 04/21/21 09:10 Sputum, Expectorated/Coughed Gram Stain - Final 04/21/21 09:10 Sputum, Expectorated/Coughed Respiratory Culture - Final Presumptive C albicans Mixed Viola 04/16/21 06:03 Blood Culture (Wb) - Right Hand Blood Culture - Final No growth in 5 days. 04/16/21 05:57 Blood Culture (Wb) - Anticubital Left Blood Culture - Final No growth in 5 days. 04/20/21 13:20 Urine, Clean Catch Legionella Antigen - Final 04/20/21 13:20 Urine, Clean Catch Streptococcus pneumoniae Antigen (M - Final 04/16/21 Unknown Nasal Secretion SARS-CoV-2 Antigen (Rapid) - Final SARS-CoV-2 (COVID 19) Physical Exam Narrative Physical exam: General: Alert, Oriented x3, Cooperative, on 10 L of oxygen HEENT: Atraumatic Oral: Moist Mucosa Neck: Supple Lungs: Diminished to auscultation Cardiovascular: HS I+II, regular, no murmurs Abdomen: Bowel Sounds Present, Soft, Non Tender Extremities: No edema Assessment & Plan Assessment/Plan (1) COVID: (2) Acute respiratory failure with hypoxia: (3) Hypokalemia: (4) Elevated d-dimer: (5) KAREN (obstructive sleep apnea): (6) Hypertension: QUALIFIERS: Hypertension type: unspecified Qualified Code(s): I10 - Essential (primary) hypertension (7) Hyperlipidemia: QUALIFIERS: Hyperlipidemia type: unspecified Qualified Code(s): E78.5 - Hyperlipidemia, unspecified (8) Type 2 diabetes mellitus without complications: QUALIFIERS: 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 Acute respiratory failure secondary to acute COVID-19 pneumonia, improving Currently on 8 L of oxygen He has been vaccinated with the Pfizer vaccine; he got his second dose right about the time his symptoms started Chest x-ray had shown bilateral airspace disease; CTA of the chest was negative for acute PE but showed bilateral airspace disease Currently on, dexamethasone and Baracitinib ID and pulmonary following 2. Hypokalemia, replaced 3. Acute on chronic back pain, history of back injections, improved Continue Lidoderm patches as well as oxycodone 4. Elevated D-dimer, acute PE ruled out, Continue treatment empirically for acute PE 5. Type II DM, blood sugars remain not at goal, renal function is at baseline Continue on Lantus, ISS, blood glucose checks continue on dapagliflozin, glimepiride and Metformin 6. Hypertension, controlled, continue on losartan Charges/Coding Visit Charges Inpatient E&M: 38818 Subs Hosp L3
[2021-04-25 17:41] LABS: Bedside Glucose 311 mg/dL (70-110)
[2021-04-25 23:26] LABS: Bedside Glucose 202 mg/dL (70-110)
[2021-04-26] VITALS (12 sets, daily range): BP systolic 95–115; BP diastolic 67–78; PULSE 59–79; RESP 20; TEMP 36.4–36.7; O2SAT 84–95
[2021-04-26] MEDS: Acetaminophen 325 MG Tablet 650 MG PO ×2 (05:12→21:03)
[2021-04-26 07:06] LABS: Absolute Lymphocyte Count 0.85 X10^3/uL (0.83-4.51); Absolute Neutrophil Count 6.4 X10^3/uL (2.0-7.7); Basophil# 0.05 X10^3/uL; Basophil% 0.6 % (0-1); Eosinophil# 0.14 X10^3/uL; Eosinophils% 1.7 % (0-5); Hematocrit 47.6 % (40-54); Lymphocyte # 0.85 X10^3/ul (0.83-4.51); Lymphocyte % 10.3 % (19-41); Mean Corp Hgb Conc 33.6 g/dL (32-36); Mean Corpuscular Hgb 33.7 pg (27.0-32.0); Mean Corpuscular Volume 100.2 fL (80-94); Mean Platelet Vol. 9.9 fl (6.2-12.0); Monocyte# 0.54 X10^3/uL; Monocyte% 6.6 % (0-10); NRBC Flagged by Analyzer 0 % (0-5); Neutrophil # 6.44 X10^3/uL (2.7-7.7); Neutrophil % 78.1 % (47-70); Platelet Count 287 K/mm3 (150-450); RBC Distribution Width CV 12.8 % (11.6-14.6); RBC Distribution Width SD 47.7 fl (35.1-43.9); Red Blood Count 4.75 M/mm3 (4.6-6.2); White Blood Count 8.2 K/mm3 (4.4-11.0)
[2021-04-26 07:46] LABS: Bedside Glucose 113 mg/dL (70-110)
[2021-04-26 07:47] LABS: ALB/GLOB Ratio 0.5 RATIO (0.9-2.4); AST(SGOT) 19 U/L (15-37); Alanine Aminotransfer ALT/SGPT 23 U/L (16-61); Albumin, Serum 2.6 g/dL (3.2-5.0); Alkaline Phosphatase 72 U/L (45-117); Anion Gap 9 (5-15); BUN 26 mg/dL (7-18); BUN/Creat Ratio 21.5 RATIO (10-20); Chloride 99 mmol/L (98-107); Creatinine, Serum 1.21 mg/dL (0.70-1.30); EST Glomerular Filtration Rate 67 mL/min (>60); Est Glom Filt Rate - Afr Amer 81 mL/min (>60); Estimated Creatinine Clearance 69.09 ml/min; Globulin 5.3 g/dL (2.2-4.2); Glucose 142 mg/dL (74-106); Potassium 3.2 mmol/L (3.5-5.1); Protein, Total 7.9 g/dL (6.4-8.2); Sodium Level 136 mmol/L (136-145)
--- NOTE | 2021-04-26 08:00 | PN.CC_ITS ---
Assessment & Plan Assessment/Plan (1) COVID: (2) KAREN (obstructive sleep apnea): (3) Type 2 diabetes mellitus without complications: QUALIFIERS: Diabetes mellitus exterminator helper insulin use: without intermediate use Qualified Code(s): E11.9 - Type 2 diabetes mellitus without complications PLAN: RECOMMENDATIONS: 1. Continue supplemental oxygen as needed to keep saturations greater than 90% 2. Challenge with diuretics as renal function allows. No diuretics today 3. Aggressive electrolyte repletion as indicated 4. Encourage Acapella, incentive spirometer and prone positioning as able 5. Continue Decadron (04/27/2021) and baricitinib (05/04/2021) 6. Continue control of hyperglycemia with titration of Lantus 7. Continue therapeutic anticoagulation. Anticipate 3 months of anticoagulation 8. Dosed with MiraLAX IMPRESSIONS: 1. Acute hypoxic respiratory failure secondary to COVID-19 Patient with extensive bilateral groundglass opacities on presentation. Patient has had worsening in oxygenation since presentation. This may be s econdary to progression of disease as patient did present relatively early. However, patient is also positive almost 5 L from a fluid status standpoint. Patient did not respond to diuresis over 2 days, but appeared to be responding well to therapeutic anticoagulation. Likely continue anticoagulation with a 10 a inhibitor for at least 3 months after discharge given rapid improvement after initiation. Patient can move baseline BiPAP to with sleep only. Wean oxygen as tolerated. Response to anticoagulation is suggestive of subclinical pulmonary emboli. 2. KAREN/psoriatic arthritis/hypertension/hyperlipidemia/diabetes mellitus type 2 Complicates care, management, recovery and prognosis. Okay to continue with baseline medications. Patient may require additional insulin therapy to maintain euglycemia. Will attempt MiraLAX to help with abdominal discomfort. We will have to watch for signs and symptoms of gastritis versus GI bleeding Subjective Subjective Patient did well overnight. No acute issues were reported. Patient is reporting increased abdominal discomfort today. Patient is not reporting any coffee-ground emesis or black stools. Patient states it feels like gas or constipation. Objective Data Objective Data Vital Signs: Vital Signs Temp Pulse Resp BP Pulse Ox 36.7 C 66 20 H 108/77 92 04/26/21 06:58 04/26/21 06:58 04/26/21 06:58 04/26/21 06:58 04/26/21 06:58 Oxygen Flow Rate (L/min) [ 6 AMBULATING with Oxygen #3] Oxygen Flow Rate (L/min) [ 5 AMBULATING with Oxygen #2] Oxygen Flow Rate (L/min) [ 4 AMBULATING with Oxygen #1] Oxygen Flow Rate (L/min) [At 3 REST with Oxygen] Oxygen Flow Rate (L/min) 8 Oxygen Delivery Method Nasal Cannula Weight: 83.915 kg Body Mass Index (BMI) 28.0 Intake & Output: Intake and Output for Last 24 Hours 04/24/21 04/25/21 04/26/21 23:59 23:59 23:59 Output Total 300 / 300 Balance -300 / -300 Lab / Micro Data Result Diagrams: 04/26/21 06:00 04/26/21 06:00 Labs: Laboratory Results - last 24 hr 04/25/21 06:31: Sodium 138, Potassium 3.7, Chloride 104, Carbon Dioxide 26.0, Anion Gap 8, BUN 22 H, Creatinine 0.93, Estim Creat Clear Calc 89.89, Est GFR (M DRD) Af Amer 110, Est GFR (MDRD) Non-Af 91, BUN/Creatinine Ratio 23.7 H, Glucose 81, Calcium 8.7, Total Bilirubin 0.80, AST 17, ALT 18, Alkaline Phosphatase 73, Total Protein 7.4, Albumin 2.4 L, Globulin 5.0 H, Albumin/Globulin Ratio 0.5 L 04/25/21 10:50: POC Glucose 196 H 04/25/21 16:37: POC Glucose 311 H 04/25/21 22:17: POC Glucose 202 H 04/26/21 06:00: WBC 8.2, RBC 4.75, Hgb 16.0, Hct 47.6, MCV 100.2 H, MCH 33.7 H, MCHC 33.6, RDW Std Deviation 47.7 H, RDW Coeff of Hernán 12.8, Plt Count 287, MPV 9.9, Immature Gran % (Auto) 2.700 H, Neut % (Auto) 78.1 H, Lymph % (Auto) 10.3 L , [place] % (Auto) 6.6, Eos % (Auto) 1.7, Baso % (Auto) 0.6, Absolute Neuts (auto) 6.4, Absolute Lymphs (auto) 0.85, Nucleated RBC % 0 04/26/21 06:00: Sodium 136, Potassium 3.2 L, Chloride 99, Carbon Dioxide 28.0, Anion Gap 9, BUN 26 H, Creatinine 1.21, Estim Creat Clear Calc 69.09, Est GFR (MDRD) Af Amer 81, Est GFR (MDRD) Non-Af 67, BUN/Creatinine Ratio 21.5 H, Glucose 142 H, Calcium 9.0, Total Bilirubin 0.70, AST 19, ALT 23, Alkaline Phosphatase 72, Total Protein 7.9, Albumin 2.6 L, Globulin 5.3 H, Albumin/Globulin Ratio 0.5 L 04/26/21 07:00: POC Glucose 113 H Micro: Microbiology 04/21/21 09:10 Sputum, Expectorated/Coughed Gram Stain - Final 04/21/21 09:10 Sputum, Expectorated/Coughed Respiratory Culture - Final Presumptive C albicans Mixed Viola 04/16/21 06:03 Blood Culture (Wb) - Right Hand Blood Culture - Final No growth in 5 days. 04/16/21 05:57 Blood Culture (Wb) - Anticubital Left Blood Culture - Final No growth in 5 days. 04/20/21 13:20 Urine, Clean Catch Legionella Antigen - Final 04/20/21 13:20 Urine, Clean Catch Streptococcus pneumoniae Antigen (M - Final 04/16/21 Unknown Nasal Secretion SARS-CoV-2 Antigen (Rapid) - Final SARS-CoV-2 (COVID 19) Physical Exam Const alert, oriented x3 and no apparent distress Constitutional Narrative: No conversational dyspnea. Does not desaturate with conversation on 8 L nasal cannula. General Appearance: cooperative Exam Limitations: no limitations HEENT normocephalic and head/scalp atraumatic Eyes PERRL and EOMs intact bilaterally Neck supple and No nodes Chest inspection of chest normal Chest: symmetrical chest wall rise; Negative for crepitus Resp Auscultation: diminished lung sounds; Negative for rales, rhonchi or wheezes Cardio regular rate, regular rhythm, S1 normal heart sound, S2 normal heart sound, no murmurs, no rub and no gallops GI normal to inspection, nondistended, normoactive bowel sounds no CVA tenderness Extremity no clubbing, cyanosis or edema Skin no rashes or lesions noted Neuro CN's II-XII intact bilaterally Psych mental status grossly normal, thought process normal, cooperative, affect normal and speech normal Charges/Coding Visit Charges Inpatient E&M: 23901 Subs Hosp L2
[2021-04-26] MEDS: Polyethylene Glycol 3350 17 GM PACKET PO (09:14)
[2021-04-26] MEDS: Glimepiride 1 MG Tablet PO (09:14)
[2021-04-26] MEDS: Potassium Chloride Oral Tablet 20 MEQ 60 MEQ PO (09:14)
[2021-04-26] MEDS: Neomycin/Bacitracin/Polymyxin Ointment 1 APPLIC TOPICAL (09:15)
[2021-04-26] MEDS: Enoxaparin 80 MG/0.8 ML Syringe SC ×2 (09:15→20:59)
[2021-04-26] MEDS: Ascorbic Acid 500 MG Tablet 1000 MG PO ×2 (09:17→20:58)
[2021-04-26] MEDS: Pantoprazole Sodium 40 MG Tablet PO (09:17)
[2021-04-26] MEDS: Losartan Potassium 25 MG Tablet PO (09:17)
[2021-04-26] MEDS: Gemfibrozil 600 MG Tablet PO ×2 (09:18→20:59)
[2021-04-26] MEDS: Pravastatin 20 MG Tablet PO (09:18)
[2021-04-26] MEDS: Fluticasone 0.05% 1 SPRAY NASAL.SRY 2 SPRAY NASAL (09:19)
[2021-04-26] MEDS: dexAMETHasone 10 MG/ML Vial 6 MG IV (09:19)
[2021-04-26] MEDS: Empagliflozin 25 MG Tablet PO (09:19)
[2021-04-26] MEDS: 0.9% Saline Lock 10 ML Syringe IV (09:20)
[2021-04-26] MEDS: Lidocaine 5% Patch 2 PATCH TOPICAL (09:25)
[2021-04-26 12:20] LABS: Bedside Glucose 159 mg/dL (70-110)
[2021-04-26] MEDS: Insulin Lispro 100 UNIT/ML INSULN.PEN SC ×3 (13:13→20:59)
--- NOTE | 2021-04-26 15:02 | PCM.PN.HOSP ---
Subjective Subjective Follow-up on acute respiratory failure secondary to COVID-19 pneumonia: Patient was seen in his room. He remains on 8 to 9 L of oxygen. No acute events Objective Data Objective Data Vital Signs: Vital Signs Temp Pulse Resp BP Pulse Ox 98.1 F 79 20 H 115/78 84 04/26/21 10:00 04/26/21 10:00 04/26/21 10:00 04/26/21 10:00 04/26/21 10:00 Oxygen Flow Rate (L/min) [ 6 AMBULATING with Oxygen #3] Oxygen Flow Rate (L/min) [ 5 AMBULATING with Oxygen #2] Oxygen Flow Rate (L/min) [ 4 AMBULATING with Oxygen #1] Oxygen Flow Rate (L/min) [At 3 REST with Oxygen] Oxygen Flow Rate (L/min) 6 Oxygen Delivery Method Nasal Cannula Weight: 83.915 kg Body Mass Index (BMI) 28.0 Intake & Output: Intake and Output for Last 24 Hours 04/24/21 04/25/21 04/26/21 23:59 23:59 23:59 Output Total 300 / 300 Balance -300 / -300 Lab / Micro Data Result Diagrams: 04/26/21 06:00 04/26/21 06:00 Labs: Laboratory Results - last 24 hr 04/25/21 16:37: POC Glucose 311 H 04/25/21 22:17: POC Glucose 202 H 04/26/21 06:00: WBC 8.2, RBC 4.75, Hgb 16.0, Hct 47.6, MCV 100.2 H, MCH 33.7 H, MCHC 33.6, RDW Std Deviation 47.7 H, RDW Coeff of Hernán 12.8, Plt Count 287, MPV 9.9, Immature Gran % (Auto) 2.700 H, Neut % (Auto) 78.1 H, Lymph % (Auto) 10.3 L, [place] % (Auto) 6.6, Eos % (Auto) 1.7, Baso % (Auto) 0.6, Absolute Neuts (auto) 6.4, Absolute Lymphs (auto) 0.85, Nucleated RBC % 0 04/26/21 06:00: Sodium 136, Potassium 3.2 L, Chloride 99, Carbon Dioxide 28.0, Anion Gap 9, BUN 26 H, Creatinine 1.21, Estim Creat Clear Calc 69.09, Est GFR (MDRD) Af Amer 81, Est GFR (MDRD) Non-Af 67, BUN/Creatinine Ratio 21.5 H, Glucose 142 H, Calcium 9.0, Total Bilirubin 0.70, AST 19, ALT 23, Alkaline Phosphatase 72, Total Protein 7.9, Albumin 2.6 L, Globulin 5.3 H, Albumin/Globulin Ratio 0.5 L 04/26/21 07:00: POC Glucose 113 H 04/26/21 12:12: POC Glucose 159 H Micro: Microbiology 04/21/21 09:10 Sputum, Expectorated/Coughed Gram Stain - Final 04/21/21 09:10 Sputum, Expectorated/Coughed Respiratory Culture - Final Presumptive C albicans Mixed Viola 04/16/21 06:03 Blood Culture (Wb) - Right Hand Blood Culture - Final No growth in 5 days. 04/16/21 05:57 Blood Culture (Wb) - Anticubital Left Blood Culture - Final No growth in 5 days. 04/20/21 13:20 Urine, Clean Catch Legionella Antigen - Final 04/20/21 13:20 Urine, Clean Catch Streptococcus pneumoniae Antigen (M - Final 04/16/21 Unknown Nasal Secretion SARS-CoV-2 Antigen (Rapid) - Final SARS-CoV-2 (COVID 19) Physical Exam Narrative Physical exam: General: Alert, Oriented x3, Cooperative, on 8 L of oxygen HEENT: Atraumatic Oral: Moist Mucosa Neck: Supple Lungs: Diminished to auscultation Cardiovascular: HS I+II, regular, no murmurs Abdomen: Bowel Sounds Present, Soft, Non Tender Extremities: No edema Assessment & Plan Assessment/Plan (1) COVID: (2) Acute respiratory failure with hypoxia: (3) Hypokalemia: (4) Elevated d-dimer: (5) KAREN (obstructive sleep apnea): (6) Hypertension: QUALIFIERS: Hypertension type: unspecified Qualified Code(s): I10 - Essential (primary) hypertension (7) Hyperlipidemia: QUALIFIERS: Hyperlipidemia type: unspecified Qualified Code(s): E78.5 - Hyperlipidemia, unspecified (8) Type 2 diabetes mellitus without complications: QUALIFIERS: Diabetes mellitus termite exterminator helper insulin use: without termite exterminator helper use Qualified Code(s): E11.9 - Type 2 diabetes mellitus without complications PLAN: 1. Acute respiratory failure secondary to acute COVID-19 pneumonia, improving Currently on 8 L of oxygen He has been vaccinated with the Pfizer vaccine; he got his second dose right about the time his symptoms started Chest x-ray had shown bilateral airspace disease; CTA of the chest was negative for acute PE but showed bilateral airspace disease Currently on, dexamethasone and Baracitinib ID and pulmonary following 2. Hypokalemia, replaced, recheck in am 3. Acute on chronic back pain, history of back injections, improved Continue Lidoderm patches as well as oxycodone 4. Elevated D-dimer, acute PE ruled out, Continue treatment empirically for acute PE 5. Type II DM, blood sugars remain not at goal, renal function is at baseline Continue on Lantus, ISS, blood glucose checks continue on dapagliflozin, glimepiride and Metformin 6. Hypertension, controlled, continue on losartan Charges/Coding Visit Charges Inpatient E&M: 97997 Subs Hosp L2
[2021-04-26 17:35] LABS: Bedside Glucose 218 mg/dL (70-110)
[2021-04-26] MEDS: MELATONIN 3 MG TABLET PO (21:03)
[2021-04-26 21:20] LABS: Bedside Glucose 302 mg/dL (70-110)
[2021-04-27] VITALS (11 sets, daily range): BP systolic 95–127; BP diastolic 63–86; PULSE 62–81; RESP 16–20; TEMP 36.5–37.1; O2SAT 92–96
[2021-04-27] MEDS: Acetaminophen 325 MG Tablet 650 MG PO ×2 (03:10→21:51)
[2021-04-27 06:11] LABS: Bedside Glucose 136 mg/dL (70-110)
[2021-04-27] MEDS: 0.9% Saline Lock 10 ML Syringe IV ×2 (08:54→21:45)
[2021-04-27] MEDS: oxyCODONE 5 MG Tablet PO ×2 (08:54→14:42)
[2021-04-27] MEDS: Lidocaine 5% Patch 2 PATCH TOPICAL (08:54)
[2021-04-27] MEDS: Empagliflozin 25 MG Tablet PO (08:55)
[2021-04-27] MEDS: Pravastatin 20 MG Tablet PO (08:55)
[2021-04-27] MEDS: Glimepiride 1 MG Tablet PO (08:55)
[2021-04-27] MEDS: dexAMETHasone 10 MG/ML Vial 6 MG IV (08:55)
[2021-04-27] MEDS: Ascorbic Acid 500 MG Tablet 1000 MG PO ×2 (08:56→21:52)
[2021-04-27] MEDS: Gemfibrozil 600 MG Tablet PO (08:56)
[2021-04-27] MEDS: Neomycin/Bacitracin/Polymyxin Ointment 1 APPLIC TOPICAL (08:57)
[2021-04-27] MEDS: Fluticasone 0.05% 1 SPRAY NASAL.SRY 2 SPRAY NASAL (08:58)
[2021-04-27 09:58] LABS: Hemoglobin 15.2 g/dL (13.0-16.5)
--- NOTE | 2021-04-27 11:10 | PCM.PN.HOSP ---
Subjective Subjective Patient seen currently experiencing bleeding per rectum Objective Data Objective Data Vital Signs: Vital Signs Temp Pulse Resp BP Pulse Ox 98.0 F 62 18 95/79 94 04/27/21 08:50 04/27/21 08:50 04/27/21 08:50 04/27/21 08:50 04/27/21 08:50 Oxygen Flow Rate (L/min) [ 6 AMBULATING with Oxygen #3] Oxygen Flow Rate (L/min) [ 5 AMBULATING with Oxygen #2] Oxygen Flow Rate (L/min) [ 4 AMBULATING with Oxygen #1] Oxygen Flow Rate (L/min) [At 3 REST with Oxygen] Oxygen Flow Rate (L/min) 2 Oxygen Delivery Method Nasal Cannula Weight: 83.915 kg Body Mass Index (BMI) 28.0 Intake & Output: Intake and Output for Last 24 Hours 04/25/21 04/26/21 04/27/21 23:59 23:59 23:59 Intake Total 1600 / 1600 320 / 320 Output Total 300 / 300 1050 / 1050 1250 / 1250 Balance -300 / -300 550 / 550 -930 / -930 Lab / Micro Data Result Diagrams: 04/27/21 09:46 04/26/21 06:00 Labs: Laboratory Results - last 24 hr 04/26/21 12:12: POC Glucose 159 H 04/26/21 16:40: POC Glucose 218 H 04/26/21 20:50: POC Glucose 302 H 04/27/21 06:01: POC Glucose 136 H 04/27/21 09:46: Hgb 15.2, Hct 45.0 Micro: Microbiology 04/21/21 09:10 Sputum, Expectorated/Coughed Gram Stain - Final 04/21/21 09:10 Sputum, Expectorated/Coughed Respiratory Culture - Final Presumptive C albicans Mixed Viola 04/16/21 06:03 Blood Culture (Wb) - Right Hand Blood Culture - Final No growth in 5 days. 04/16/21 05:57 Blood Culture (Wb) - Anticubital Left Blood Culture - Final No growth in 5 days. 04/20/21 13:20 Urine, Clean Catch Legionella Antigen - Final 04/20/21 13:20 Urine, Clean Catch Streptococcus pneumoniae Antigen (M - Final 04/16/21 Unknown Nasal Secretion SARS-CoV-2 Antigen (Rapid) - Final SARS-CoV-2 (COVID 19) Physical Exam Narrative GENERAL: Appears fatigued HEENT: Atraumatic; EYES; Anicteric, Normal Conjunctiva NECK; supple, normal thyroid, RESPIRATORY: Diminished to auscultation CARDIOVASCULAR: Regular S1 S2, GI: soft, normoactive bowel sounds, : No Renal angle tenderness; EXTREMITIES: No edema, no clubbing, MUSCULOSKELETAL: no muscle waisting NEURO: Awake; no lateralizing signs. SKIN: No Rash PSYCH; Flat affect Assessment & Plan Assessment/Plan (1) COVID: (2) Acute respiratory failure with hypoxia: (3) Hypokalemia: (4) Elevated d-dimer: (5) KAREN (obstructive sleep apnea): (6) Hypertension: QUALIFIERS: Hypertension type: unspecified Qualified Code(s): I10 - Essential (primary) hypertension (7) Hyperlipidemia: QUALIFIERS: Hyperlipidemia type: unspecified Qualified Code(s): E78.5 - Hyperlipidemia, unspecified (8) Type 2 diabetes mellitus without complications: QUALIFIERS: Diabetes mellitus senior living insulin use: without terminal gauger supervisor use Qualified Code(s): E11.9 - Type 2 diabetes mellitus without complications PLAN: Patient is a 50-year-old gentleman who presented with a 10-day history of shortness of breath cough and sore throat. He had apparently completed his second dose of his COVID-19 vaccination when his symptoms started 1. Acute hypoxic respiratory failure ?Secondary to SARS-CoV-[address] of the chest obtained demonstrated bilateral airspace disease. Patient has been managed with dexamethasone as well as baricitinib with consultation placed to ID and pulmonary medicine. Patient remains on supplemental oxygen 2. Hematochezia ?Patient is on therapeutic Lovenox discontinued started on Protonix. Every 4 H&H ordered. Patient was typed and screened. If bleeding does not resolve we will consider obtaining GI consultation 3. Hypokalemia ?Corrected per protocol 4. Acute on chronic low back pain ?Managed symptomatically with Lidoderm patch as well as oxycodone as needed 5. Hypertension - Blood pressure controlled, home medications continued with dose adjustment as needed 6. Diabetes mellitus type II -patient's oral hypoglycemics held. Placed on long acting insulin, Accu-Cheks a.c. and at bedtime and covered with sliding scale insulin 7. Elevated D-dimer, acute PE ruled out, CT of the chest was negative for PE. Patient her however been started on therapeutic Lovenox discontinued on 04/27/2021 in view of patient hematochezia 8. DVT prophylaxis ?Bilateral SCDs Charges/Coding Visit Charges Inpatient E&M: 62314 Subs Hosp L3
[2021-04-27] MEDS: Insulin Lispro 100 UNIT/ML INSULN.PEN SC ×3 (11:12→21:46)
[2021-04-27 11:46] LABS: Bedside Glucose 177 mg/dL (70-110)
[2021-04-27 13:13] LABS: Hematocrit 48.5 % (40-54); Hemoglobin 16.3 g/dL (13.0-16.5)
--- NOTE | 2021-04-27 15:01 | CT_ITS ---
STUDY: CT ABDOMEN AND PELVIS WITH CONTRAST REASON FOR EXAM: Male, 50 years old. Hematochezia RADIATION DOSAGE (If Supplied By Facility): CTDIvol = ( 14.39 ) mGy, DLP = ( 663.10 ) mGycm TECHNIQUE: Transaxial images were obtained from the dome of the diaphragm to the symphysis pubis with oral contrast. Oral and IV Gastrografin and 100mL Isovue-300 was administered. Sagittal and coronal images were reconstructed. Individualized dose optimization techniques were used for this CT. COMPARISON: None. FINDINGS: Moderate patchy consolidation and groundglass edema seen in the visualized lung colvin compatible with multifocal pneumonia due to Covid 19. Normal liver. Normal gallbladder and extrahepatic biliary system. Normal spleen. Normal pancreas. Normal bilateral adrenal glands. Normal right kidney. Normal left kidney. Normal visualized stomach. Normal small intestine. Normal colon. The appendix is visualized and appears normal. No bowel dilatation or obstruction. The colon is stool-filled. No visualized active arterial hemorrhaging in the colon. Normal abdominal aorta. Normal inferior vena cava. Normal retroperitoneum. Normal urinary bladder. Penile urethral implant and reservoir noted. Normal abdominal wall. Normal osseous structures. CT/Abdomen/Pelvis WITH Contrast IMPRESSION: 1. Moderate patchy consolidation and groundglass edema seen in the visualized lung colvin compatible with multifocal pneumonia due to Covid 19. 2. No demonstrated acute or significant abnormality of the abdomen and pelvis. 3. No visualized active arterial hemorrhaging in the colon. 4. Consider nuclear medicine GI RBC scan if there is continued concern for GI bleeding. Electronically Signed: Shane King MD at 19:52 EDT , Service support ,
[2021-04-27 17:16] LABS: Hematocrit 45.5 % (40-54); Hemoglobin 15.5 g/dL (13.0-16.5)
[2021-04-27 20:11] LABS: Hematocrit 44.8 % (40-54)
[2021-04-27] MEDS: MELATONIN 3 MG TABLET PO (21:51)
[2021-04-27 22:45] LABS: Bedside Glucose 243 mg/dL (70-110)
[2021-04-27 22:45] LABS: Bedside Glucose 270 mg/dL (70-110)
[2021-04-28] VITALS (9 sets, daily range): BP systolic 104–108; BP diastolic 61–70; PULSE 64–77; RESP 16; TEMP 36.7; O2SAT 83–94
[2021-04-28 06:26] LABS: Absolute Lymphocyte Count 1.02 X10^3/uL (0.83-4.51); Absolute Neutrophil Count 9.5 X10^3/uL (2.0-7.7); Basophil# 0.03 X10^3/uL; Basophil% 0.3 % (0-1); Eosinophil# 0.13 X10^3/uL; Eosinophils% 1.1 % (0-5); Hematocrit 47.3 % (40-54); Hemoglobin 15.5 g/dL (13.0-16.5); Lymphocyte # 1.02 X10^3/ul (0.83-4.51); Lymphocyte % 8.9 % (19-41); Mean Corp Hgb Conc 32.8 g/dL (32-36); Mean Corpuscular Hgb 32.7 pg (27.0-32.0); Mean Corpuscular Volume 99.8 fL (80-94); Monocyte# 0.62 X10^3/uL; Monocyte% 5.4 % (0-10); NRBC Flagged by Analyzer 0 % (0-5); Neutrophil # 9.48 X10^3/uL (2.7-7.7); Neutrophil % 82.6 % (47-70); Platelet Count 341 K/mm3 (150-450); RBC Distribution Width CV 12.5 % (11.6-14.6); RBC Distribution Width SD 46.6 fl (35.1-43.9); Red Blood Count 4.74 M/mm3 (4.6-6.2); White Blood Count 11.5 K/mm3 (4.4-11.0)
[2021-04-28 07:01] LABS: ALB/GLOB Ratio 0.5 RATIO (0.9-2.4); AST(SGOT) 18 U/L (15-37); Alanine Aminotransfer ALT/SGPT 25 U/L (16-61); Albumin, Serum 2.7 g/dL (3.2-5.0); Alkaline Phosphatase 68 U/L (45-117); Anion Gap 5 (5-15); BUN 23 mg/dL (7-18); BUN/Creat Ratio 22.1 RATIO (10-20); Calcium,Total 8.6 mg/dL (8.5-10.1); Chloride 102 mmol/L (98-107); Creatinine, Serum 1.04 mg/dL (0.70-1.30); EST Glomerular Filtration Rate 80 mL/min (>60); Est Glom Filt Rate - Afr Amer 96 mL/min (>60); Estimated Creatinine Clearance 80.38 ml/min; Globulin 5.1 g/dL (2.2-4.2); Glucose 61 mg/dL (74-106); Magnesium 2.7 mg/dL (1.6-2.6); Potassium 3.5 mmol/L (3.5-5.1); Protein, Total 7.8 g/dL (6.4-8.2); Sodium Level 138 mmol/L (136-145)
[2021-04-28 07:10] LABS: Bedside Glucose 63 mg/dL (70-110)
[2021-04-28 07:10] LABS: Bedside Glucose 82 mg/dL (70-110)
--- NOTE | 2021-04-28 07:22 | DS.PCM_ITS ---
Providers Date of Admission: 04/16/21 Primary Care Physician: Dr. Casey Valles MD Consultations 04/20/21 10:23 Consult: Infectious Disease Routine Consulting Provider: Dajuan Robins Reason for Consult: Resp failure EMERGENT Consult: No Notified: Yes Date Notified: 04/20/21 Time Notified: 11:15 Method of Notification: spoke with office 04/21/21 10:24 Consult: Histopathology Technician / Pulmonary Medicine Routine Consulting Provider: Pulmonary Medicine [facility] Reason for Consult: Resp failure/COVID-19 EMERGENT Consult: No Notified: Yes Date Notified: 04/21/21 Time Notified: 11:06 Method of Notification: Text Reason For Visit: COVID 19 PNEUMONIA Diagnosis Discharge Diagnosis (1) COVID: Status: Acute Code(s): U07.1 - COVID-19 (2) Acute respiratory failure with hypoxia: Status: Acute Code(s): J96.01 - Acute respiratory failure with hypoxia (3) Hypokalemia: Status: Acute Code(s): E87.6 - Hypokalemia (4) Elevated d-dimer: Status: Acute Code(s): R79.89 - Other specified abnormal findings of blood chemistry (5) KAREN (obstructive sleep apnea): Status: Chronic Code(s): G47.33 - Obstructive sleep apnea (adult) (pediatric) (6) Hypertension: Status: Chronic Code(s): I10 - Essential (primary) hypertension Qualifiers: Hypertension type: unspecified Qualified Code(s): I10 - Essential (primary) hypertension (7) Hyperlipidemia: Status: Chronic Code(s): E78.5 - Hyperlipidemia, unspecified Qualifiers: Hyperlipidemia type: unspecified Qualified Code(s): E78.5 - Hyperlipi demia, unspecified (8) Type 2 diabetes mellitus without complications: Status: Chronic Code(s): E11.9 - Type 2 diabetes mellitus without complications Qualifiers: Diabetes mellitus middle or intermediate school principal insulin use: without fpc use Qualified Code(s): E11.9 - Type 2 diabetes mellitus without complications Medications at Discharge Home Medications metformin 1,000 mg tablet 1,000 mg PO DAILY 30 Days #60 tab 05/22/18 triamcinolone acetonide 55 mcg nasal spray aerosol 2 spray INTRANASAL DAILY PRN 12/07/18 gemfibrozil 600 mg tablet 600 mg PO BID #180 tab 07/02/19 pravastatin 20 mg tablet 20 mg PO DAILY #90 tab 07/02/19 glimepiride 2 mg tablet 1 mg PO QAM tab 07/18/19 dapagliflozin 10 mg tablet 10 mg PO DAILY tab 05/14/20 pseudoephedrine HCl 240 mg tablet,extended release 24 hr 240 mg PO DAILY PRN tab 05/14/20 losartan 25 mg tablet 25 mg PO DAILY #90 tab 07/21/20 omeprazole 40 mg PO BIDCM #0 cap 04/28/21 Hospital Course Summary of Care Provided Minutes Spent on Discharge: 35 Hospital Course: Patient is a 50-year-old gentleman who presented with a 10-day history of shortness of breath cough and sore throat. He had apparently completed his second dose of his COVID-19 vaccination when his symptoms started 1. Acute hypoxic respiratory failure ?Secondary to SARS-CoV-[address] of the chest obtained demonstrated bilateral airspace disease. Patient has been managed with dexamethasone as well as baricitinib with consultation placed to ID and pulmonary medicine. Patient remains on supplemental oxygen -04/28/2021 patient was assessed for home oxygen which he did qualify he will need portability since he is active both in the community as well as at home 2. Hematochezia ?Patient is on therapeutic Lovenox discontinued started on Protonix. Every 4 H&H ordered. Patient was typed and screened. If bleeding does not resolve we will consider obtaining GI consultation -04/28/2021. Patient bleeding per rectum did resolve. CT of the abdomen obtained did not show any evidence of colitis. Did discuss with patient on the need to undergo subsequent evaluation as outpatient following recovery from his Covid possibly with a colonoscopy. An appointment was set up with GI prior to patient being discharged 3. Hypokalemia ?Corrected per protocol 4. Acute on chronic low back pain ?Managed symptomatically with Lidoderm patch as well as oxycodone as needed 5. Hypertension - Blood pressure controlled, home medications continued with dose adjustment as needed 6. Diabetes mellitus type II -patient's oral hypoglycemics held. Placed on long acting insulin, Accu-Cheks a.c. and at bedtime and covered with sliding scale insulin 7. Elevated D-dimer, acute PE ruled out, CT of the chest was negative for PE. Patient her however been started on therapeutic Lovenox discontinued on 04/27/2021 in view of patient hematochezia 8. DVT prophylaxis ?Bilateral SCDs Physical Exam Narrative GENERAL: Appears fatigued HEENT: Atraumatic; EYES; Anicteric, Normal Conjunctiva NECK; supple, normal thyroid, RESPIRATORY: Diminished to auscultation CARDIOVASCULAR: Regular S1 S2, GI: soft, normoactive bowel sounds, : No Renal angle tenderness; EXTREMITIES: No edema, no clubbing, MUSCULOSKELETAL: no muscle waisting NEURO: Awake; no lateralizing signs. SKIN: No Rash PSYCH; Flat affect Weight / BMI Weight Weight: 83.915 kg Body Mass Index (BMI) 28.0 ABG / Lab / Microbiology Data Result Diagrams: 04/28/21 06:02 04/28/21 06:02 Laboratory: Laboratory Results - last 24 hr 04/27/21 09:46: Hgb 15.2, Hct 45.0 04/27/21 11:09: POC Glucose 177 H 04/27/21 12:52: Hgb 16.3, Hct 48.5 04/27/21 12:52: Blood Type A NEGATIVE, Antibody Screen NEGATIVE 04/27/21 16:30: Hgb 15.5, Hct 45.5 04/27/21 16:52: POC Glucose 243 H 04/27/21 20:00: Hgb 15.0, Hct 44.8 04/27/21 21:41: POC Glucose 270 H 04/28/21 06:02: WBC 11.5 H, RBC 4.74, Hgb 15.5, Hct 47.3, MCV 99.8 H, MCH 32.7 H , MCHC 32.8, RDW Std Deviation 46.6 H, RDW Coeff of Hernán 12.5, Plt Count 341, MPV 10.0, Immature Gran % (Auto) 1.700 H, Neut % (Auto) 82.6 H, Lymph % (Auto) 8.9 L , [place] % (Auto) 5.4, Eos % (Auto) 1.1, Baso % (Auto) 0.3, Absolute Neuts (auto) 9.5 H, Absolute Lymphs (auto) 1.02, Nucleated RBC % 0 04/28/21 06:02: Sodium 138, Potassium 3.5, Chloride 102, Carbon Dioxide 31.0, Anion Gap 5, BUN 23 H, Creatinine 1.04, Estim Creat Clear Calc 80.38, Est GFR (MDRD) Af Amer 96, Est GFR (MDRD) Non-Af 80, BUN/Creatinine Ratio 22.1 H, Glucose 61 L, Calcium 8.6, Magnesium 2.7 H, Total Bilirubin 0.90, AST 18, ALT 25, Alkaline Phosphatase 68, Total Protein 7.8, Albumin 2.7 L, Globulin 5.1 H, Albumin/Globulin Ratio 0.5 L 04/28/21 06:31: POC Glucose 63 L 04/28/21 06:46: POC Glucose 82 Microbiology: Microbiology 04/21/21 09:10 Sputum, Expectorated/Coughed Gram Stain - Final 04/21/21 09:10 Sputum, Expectorated/Coughed Respiratory Culture - Final Presumptive C albicans Mixed Viola 04/16/21 06:03 Blood Culture (Wb) - Right Hand Blood Culture - Final No growth in 5 days. 04/16/21 05:57 Blood Culture (Wb) - Anticubital Left Blood Culture - Final No growth in 5 days. 04/20/21 13:20 Urine, Clean Catch Legionella Antigen - Final 04/20/21 13:20 Urine, Clean Catch Streptococcus pneumoniae Antigen (M - Final 04/16/21 Unknown Nasal Secretion SARS-CoV-2 Antigen (Rapid) - Final SARS-CoV-2 (COVID 19) Radiography Diagnostic Testing: Radiology Impression Abdomen/Pelvis CT 04/27/21 15:01 IMPRESSION: 1. Moderate patchy consolidation and groundglass edema seen in the visualized lung colvin compatible with multifocal pneumonia due to Covid 19. 2. No demonstrated acute or significant abnormality of the abdomen and pelvis. 3. No visualized active arterial hemorrhaging in the colon. 4. Consider nuclear medicine GI RBC scan if there is continued concern for GI bleeding. Electronically Signed: Shane King MD at 19:52 EDT , Service support , D/C Instructions Discharge Diet: No restrictions and 1800 Calorie Control Diet Discharge Activity: Return to Normal Activity Call your doctor if you observe: Fever of 101 or Higher, Shortness of breath, Fainting spells and Chest pain Meaningful Use Info Meaningful Use Diagnoses (Choose all that apply): None applicable Discharge Plan Admission Admit Date/Time: 04/16/21 07:40 Attending Provider: Sridhar Ortez Primary Care Provider: Casey Valles Consulting Providers: Dajuan Robins ; Luis Cooper ; Clark Lee ; Yeny Mojica STABILIZING MACHINE OPERATOR Instructions Patient Instructions: Coronavirus Disease 2019 (COVID-19): Caring for Yourself or Others, COVID-19: Lying in a Prone Position (Proning), Preventing the Spread of Infection Understanding Isolation Procedures, Disinfecting Your Home of COVID-19, How COVID-19 Spreads Discharge Orders/Prescriptions Prescriptions: Continued metformin 1,000 mg tablet 1,000 mg PO DAILY 30 Days Qty: 60 RF: 0 triamcinolone acetonide [Nasacort] 55 mcg aerosol,spray 2 spray INTRANASAL DAILY PRN (Reason: rhinitis) RF: 0 Farxiga 10 mg tablet 10 mg PO DAILY RF: 0 gemfibrozil 600 mg tablet 600 mg PO BID Qty: 180 RF: 3 pravastatin 20 mg tablet 20 mg PO DAILY Qty: 90 RF: 3 glimepiride 2 mg tablet 1 mg PO QAM RF: 0 pseudoephedrine HCl 240 mg tablet extended release 24 hr 240 mg PO DAILY PRN (Reason: nasal congestion) RF: 0 losartan 25 mg tablet 25 mg PO DAILY Qty: 90 RF: 3 Changed omeprazole 40 mg capsule,delayed release(DR/EC) 40 mg PO BIDCM Qty: 0 RF: 0 Referrals / Follow Up: Casey Valles MD [Primary Care Provider] - In 1 Week Fede Bailey DO [STAFF PHYSICIAN] - Within 1 Month Disposition Disposition (needs filled in before D/C Order can be placed): Home, Self Care Charges/Coding Visit Charges Inpatient E&M: 13651 Disch Hosp
--- NOTE | 2021-04-28 07:22 | PN.HOSP_ITS ---
Objective Data Objective Data Vital Signs: Vital Signs Temp Pulse Resp BP Pulse Ox 98.1 F 77 16 104/61 92 04/28/21 06:36 04/28/21 06:36 04/28/21 06:36 04/28/21 06:36 04/28/21 06:36 Oxygen Flow Rate (L/min) [ 6 AMBULATING with Oxygen #3] Oxygen Flow Rate (L/min) [ 5 AMBULATING with Oxygen #2] Oxygen Flow Rate (L/min) [ 4 AMBULATING with Oxygen #1] Oxygen Flow Rate (L/min) [At 3 REST with Oxygen] Oxygen Flow Rate (L/min) 2 Oxygen Delivery Method Nasal Cannula Weight: 83.915 kg Body Mass Index (BMI) 28.0 Intake & Output: Intake and Output for Last 24 Hours 04/26/21 04/27/21 04/28/21 23:59 23:59 23:59 Intake Total 1600 / 1600 564.25 / 564.25 Output Total 1050 / 1050 1250 / 1250 Balance 550 / 550 -685.75 / -685.75 Lab / Micro Data Result Diagrams: 04/28/21 06:02 04/28/21 06:02 Labs: Laboratory Results - last 24 hr 04/27/21 09:46: Hgb 15.2, Hct 45.0 04/27/21 11:09: POC Glucose 177 H 04/27/21 12:52: Hgb 16.3, Hct 48.5 04/27/21 12:52: Blood Type A NEGATIVE, Antibody Screen NEGATIVE 04/27/21 16:30: Hgb 15.5, Hct 45.5 04/27/21 16:52: POC Glucose 243 H 04/27/21 20:00: Hgb 15.0, Hct 44.8 04/27/21 21:41: POC Glucose 270 H 04/28/21 06:02: WBC 11.5 H, RBC 4.74, Hgb 15.5, Hct 47.3, MCV 99.8 H, MCH 32.7 H , MCHC 32.8, RDW Std Deviation 46.6 H, RDW Coeff of Hernán 12.5, Plt Count 341, MPV 10.0, Immature Gran % (Auto) 1.700 H, Neut % (Auto) 82.6 H, Lymph % (Auto) 8.9 L , [place] % (Auto) 5.4, Eos % (Auto) 1.1, Baso % (Auto) 0.3, Absolute Neuts (auto) 9.5 H, Absolute Lymphs (auto) 1.02, Nucleated RBC % 0 04/28/21 06:02: Sodium 138, Potassium 3.5, Chloride 102, Carbon Dioxide 31.0, Anion Gap 5, BUN 23 H, Creatinine 1.04, Estim Creat Clear Calc 80.38, Est GFR (MDRD) Af Amer 96, Est GFR (MDRD) Non-Af 80, BUN/Creatinine Ratio 22.1 H, Glucose 61 L, Calcium 8.6, Magnesium 2.7 H, Total Bilirubin 0.90, AST 18, ALT 2 5, Alkaline Phosphatase 68, Total Protein 7.8, Albumin 2.7 L, Globulin 5.1 H, Albumin/Globulin Ratio 0.5 L 04/28/21 06:31: POC Glucose 63 L 04/28/21 06:46: POC Glucose 82 Micro: Microbiology 04/21/21 09:10 Sputum, Expectorated/Coughed Gram Stain - Final 04/21/21 09:10 Sputum, Expectorated/Coughed Respiratory Culture - Final Presumptive C albicans Mixed Viola 04/16/21 06:03 Blood Culture (Wb) - Right Hand Blood Culture - Final No growth in 5 days. 04/16/21 05:57 Blood Culture (Wb) - Anticubital Left Blood Culture - Final No growth in 5 days. 04/20/21 13:20 Urine, Clean Catch Legionella Antigen - Final 04/20/21 13:20 Urine, Clean Catch Streptococcus pneumoniae Antigen (M - Final 04/16/21 Unknown Nasal Secretion SARS-CoV-2 Antigen (Rapid) - Final SARS-CoV-2 (COVID 19) Radiography Diagnostic Testing: Radiology Impression Abdomen/Pelvis CT 04/27/21 15:01 IMPRESSION: 1. Moderate patchy consolidation and groundglass edema seen in the visualized lung colvin compatible with multifocal pneumonia due to Covid 19. 2. No demonstrated acute or significant abnormality of the abdomen and pelvis. 3. No visualized active arterial hemorrhaging in the colon. 4. Consider nuclear medicine GI RBC scan if there is continued concern for GI bleeding. Electronically Signed: Shane King MD at 19:52 EDT , Service support ,
[2021-04-28] MEDS: Ascorbic Acid 500 MG Tablet 1000 MG PO (09:03)
[2021-04-28] MEDS: Pravastatin 20 MG Tablet PO (09:03)
[2021-04-28] MEDS: Losartan Potassium 25 MG Tablet PO (09:03)
[2021-04-28] MEDS: dexAMETHasone 10 MG/ML Vial 6 MG IV (09:04)
[2021-04-28] MEDS: Lidocaine 5% Patch 2 PATCH TOPICAL (09:05)
[2021-04-28] MEDS: Fluticasone 0.05% 1 SPRAY NASAL.SRY 2 SPRAY NASAL (09:05)
[2021-04-28] MEDS: Neomycin/Bacitracin/Polymyxin Ointment 1 APPLIC TOPICAL (09:06)
--- NOTE | 2021-04-28 11:00 | CASEMGMT ---
Pt qualifies for home O2, referral faxed to [facility] [place]. TC to Katherine to make aware that tank will be taken from stock.
--- NOTE | 2021-04-28 11:10 | PHA.DC.MR ---
Pharmacy Service has performed discharge medication reconciliation for this patient. The patient's discharge medication list was reviewed for discrepancies and discrepancies were resolved. Home Medications metformin 1,000 mg tablet 1,000 mg PO DAILY 30 Days #60 tab 05/22/18 triamcinolone acetonide 55 mcg nasal spray aerosol 2 spray INTRANASAL DAILY PRN 12/07/18 gemfibrozil 600 mg tablet 600 mg PO BID #180 tab 07/02/19 pravastatin 20 mg tablet 20 mg PO DAILY #90 tab 07/02/19 glimepiride 2 mg tablet 1 mg PO QAM tab 07/18/19 dapagliflozin 10 mg tablet 10 mg PO DAILY tab 05/14/20 pseudoephedrine HCl 240 mg tablet,extended release 24 hr 240 mg PO DAILY PRN tab 05/14/20 losartan 25 mg tablet 25 mg PO DAILY #90 tab 07/21/20 omeprazole 40 mg PO BIDCM #0 cap 04/28/21
[2021-04-28] MEDS: Insulin Lispro 100 UNIT/ML INSULN.PEN SC (12:38)
[2021-04-28 13:16] LABS: Bedside Glucose 312 mg/dL (70-110)
--- NOTE | 2021-04-29 15:35 | CASEMGMT ---
Addendum entered by Lizeth Meng 04/29/21 15:35: Pt returned call. He states he was in ER yesterday but feels better now. States his pulse ox is running in the 90's now. O2 set up successful. Pt did not have any new rx. Pt did make follow up appt with for next Tuesday. He still needs to make his appt with Dr. Bailey. Pt is quarantining and is aware when that is up. Pt denies further questions regarding dc instructions or medications. Original Note: KARMEN COPELAND Discharge Follow Up Phone Call: [place]: Vicki Strata:3 Call Date: 04/29/21 Discharge Date: 04/28/21 Time of Call:1526 Duration:<1 min Admitting Dx: COVID 19 KARMEN COPELAND attempted to complete follow up phone call after recent hospitalization, phone forwarded to identified voicemail. Left message for reason for call and call back number. Noted pt to be seen in the ER lastnight with bronchospasm. Pt dc'd home.
== END 2021-04-28 15:15 | disposition home or self-care (01) | DRG 177 ==
LOC: ED 07:34 → MS3 08:25
PROVIDERS: Internal Medicine; Internal Medicine Critical Care Medicine; Admitting Provider Student in an Organized Health Care Education/Training Program; Emergency Provider Emergency Medicine; PCP Family Medicine; Visit Provider Internal Medicine
DX: U07.1 COVID-19 (principal); J12.82 Pneumonia due to coronavirus disease 2019; J96.01 Acute respiratory failure with hypoxia; K92.1 Melena; E87.6 Hypokalemia; E11.9 Type 2 diabetes mellitus without complications; I10 Essential (primary) hypertension; E78.5 Hyperlipidemia, unspecified; L40.50 Arthropathic psoriasis, unspecified; K21.9 Gastro-esophageal reflux disease without esophagitis; G47.33 Obstructive sleep apnea (adult) (pediatric); M54.50 Low back pain, unspecified; G89.29 Other chronic pain; Z79.84 Long term (current) use of oral hypoglycemic drugs; Z79.899 Other long term (current) drug therapy; Z96.0 Presence of urogenital implants
CPT/HCPCS: 36415; 71045; 71275; 74177; 80048; 80053; 82550; 82962; 83605; 83615; 83735; 83880; 84075; 84145; 85014; 85018; 85025; 85379; 85384; 86140; 86850; 86900; 86901; 87040; 87070; 87205; 87426; 87449; 94640; 94762; 97110; 97166; 97530; 97535; 99251; 99284; J7030; J7050; Q9967; A4216; G0463; J1940

== ENCOUNTER 2021-04-28 19:33 | Emergency (ER) | payer OTHER, SELFPAY ==
[2021-04-28 19:34] VITALS: PULSE 86; RESP 20; TEMP 36.9; O2SAT 90; BMI 27.1
[2021-04-28 19:41] VITALS: O2SAT 92
[2021-04-28 20:06] VITALS: BP 125/87; PULSE 80; RESP 24; O2SAT 95
[2021-04-28 20:52] VITALS: PULSE 97; RESP 22; RESP 24; O2SAT 95
[2021-04-28] MEDS: Albuterol 2.5 MG/3 ML VIAL.NEB. INHALATION (20:52)
[2021-04-28] MEDS: Ipratropium/Albuterol Sulfate 3 ML AMPUL.NEB INHALATION (20:52)
[2021-04-28 21:04] VITALS: BP 127/80; PULSE 94; RESP 16; O2SAT 94
--- NOTE | 2021-04-28 21:18 | CPS ---
x1 Albuterol given to pt. in ED as well
--- NOTE | 2021-04-28 22:34 | CM.ED ---
SW note Referral Source: MD Referral Reason: Patient's voiced that patient may need rehab SW met with staff radiation therapist and staff indicated patient was independent and able to walk however, as patient had destated today his was concerned about him being at home again and the destat happening. SW and RN met with patient. Reviewed that patient needs to meet eligibility for rehab and with him walking and being independent he would not qualify. SW stated home health is an option as long as patient is homebound. SW explained what home health does but patient and voiced they want something 24/7. SW explained that if they want someone 24/7 they need to private pay. SW offered a list of private duty agencies as options. SW also educated on [facility] auxiliary medic alert. Patient said that it took twp 15 minutes to come and it would take the hospital longer. As more discussion entailed patient voiced he has a cpap at home. Rn indicated when patient destats he can use bipap. Patient and said that is what they will do and indicated that they will go home and if patient destats again they will use cpap. Patient and stated they felt comfortable with the cpap plan at home. Patient said that the oxygen is bleeding into his cpap. No other issues or concerns voiced. Plan: Home [facility]
--- NOTE | 2021-04-28 22:36 | EX.ED.DYSGE1 ---
HPI History of Present Illness Chief Complaint: Shortness of Breath Narrative Narrative: Patient is a 50-year-old male who was discharged from the hospital about 6 hours ago after spending approximately 2 weeks secondary to Covid. Patient states that he was wearing his oxygen but up moving around more than he has been for the past few weeks. He states that he then began coughing and got into a coughing spell and could not catch his breath and felt more and more short of breath and his pulse ox began to drop. He states that as he cannot catch his breath and he was worried about his breathing EMS was called. Patient states that after he was placed on a higher flow of oxygen his symptoms resolved. He states that this time he feels back at his baseline. [facility] Medical History Alcohol abuse CPAP (continuous positive airway pressure) dependence GERD (gastroesophageal reflux disease) Hyperlipidemia Hypertension Psoriatic arthritis Right bundle branch block Sleep apnea Type 2 diabetes mellitus without complications Home Medications metformin 1,000 mg tablet 1,000 mg PO DAILY 30 Days #60 tab 05/22/18 [History Last Taken Unknown] triamcinolone acetonide 55 mcg nasal spray aerosol 2 spray INTRANASAL DAILY PRN 12/07/18 [History Last Taken Unknown] gemfibrozil 600 mg tablet 600 mg PO BID #180 tab 07/02/19 [Rx Last Taken Unknown] pravastatin 20 mg tablet 20 mg PO DAILY #90 tab 07/02/19 [Rx Last Taken Unknown] glimepiride 2 mg tablet 1 mg PO QAM tab 07/18/19 [History Last Taken Unknown] dapagliflozin 10 mg tablet 10 mg PO DAILY tab 05/14/20 [History Last Taken Unknown] pseudoephedrine HCl 240 mg tablet,extended release 24 hr 240 mg PO DAILY PRN tab 05/14/20 [History Last Taken Unknown] losartan 25 mg tablet 25 mg PO DAILY #90 tab 07/21/20 [Rx Last Taken Unknown] albuterol sulfate [Ventolin HFA] 1 - 2 puff INHALATION Q4H PRN PRN #1 device 04/28/21 [Rx Last Taken Unknown] ipratropium-albuterol 3 ml INHALATION Q6H PRN #90 ml 04/28/21 [Rx Last Taken Unknown] nebulizer and compressor #1 ea 10/19/21 [Rx Last Taken Unknown] omeprazole 40 mg PO BIDCM #0 cap 04/28/21 [Rx Last Taken Unknown] Allergy/AdvReac Type Severity Reaction Status Date / Time amoxicillin [From Augmentin] AdvReac Diarrhea Verified 04/28/21 19:39 clavulanic acid AdvReac Diarrhea Verified 04/28/21 19:39 [From Augmentin] Family History Father CAD (coronary artery disease) FROM [place] AGE 65 Mother Diabetes Surgical History History of penile implant (~09/2019) History of sinus surgery Social History Smoking Status: Never smoker alcohol intake: current substance use type: does not use ROS ROS ED Constitutional Constitutional ED: Denies chills or fever(s) ENT ENT ED: Denies sore throat Cardiovascular Cardiovascular: Denies chest pain Respiratory/Chest Respiratory/Chest: Reports cough and dyspnea Gastrointestinal Gastrointestinal: Denies abdominal pain, diarrhea, nausea or vomiting Genitourinary Genitourinary ED: Denies dysuria Musculoskeletal Musculoskeletal: Denies myalgias Integumentary Denies rash Neurologic Neurologic: Denies headache(s) Psychiatric Psychiatric: Denies anxiety Hematologic/Lymphatic Hematologic/Lymphatic: Denies easy bleeding or easy bruising EXAM Physical Exam Const Vital Signs: 04/28/21 19:34 04/28/21 19:41 04/28/21 20:06 Temperature 98.5 F Temperature Source Temporal Pulse Rate 86 80 Respiratory Rate 20 H 24 H Respiratory Effort Normal Non-Labored Respiratory Depth Normal Respiratory Pattern Normal Blood Pressure 125/87 H Blood Pressure Mean 99 Pulse Ox 90 95 Oxygen Delivery Method Nasal Cannula Nasal Cannula Nasal Cannula Oxygen Flow Rate (L/min) 4 6 5 04/28/21 20:52 04/28/21 21:04 Temperature Temperature Source Pulse Rate 97 94 Respiratory Rate 24 H 16 Respiratory Effort Short of Breath Respiratory Depth Shallow Respiratory Pattern Tachypnea Blood Pressure 127/80 H Blood Pressure Mean 95 Pulse Ox 95 94 Oxygen Delivery Method Nasal Cannula Nasal Cannula Oxygen Flow Rate (L/min) 5 5 Positive well nourished and well developed General Appearance ED: well developed HEENT Reports moist mucous membranes HEENT Narrative: No tongue or lip swelling no oral lesions no airway edema or compromise Eyes PERRL and EOMs intact bilaterally Neck supple and no JVD Chest Wall palpation of chest normal Resp normal respiratory effort Resp Narrative: Breath sounds are slight diminished with faint wheeze and rhonchi in the bilateral bases but no signs of respiratory distress Cardio regular rate and regular rhythm GI normal to inspection, nondistended, normoactive bowel sounds, non-tender, non-distended and no masses Auscultation: normoactive bowel sounds Palpation: soft Extremity normal to inspection Extremity Narrative: No asymmetric edema no pitting edema negative Homans' sign bilaterally Neuro oriented x3 and CN's II-XII intact bilaterally Sensorium / Orientation: alert Motor Exam: strength 5/5 throughout Psych mental status grossly normal Skin no rashes or lesions noted MDM MDM MDM Narrative Medical decision making narrative: Patient presented to the ER in no acute respiratory distress satting in the mid 90s on 5 L. His history is consistent with a bronchospasm. With his recent discharge from the hospital today I do not feel there is need for repeat labs or images. Patient was given breathing treatments in the ER and watched for a few hours and he had no return of bronchospasm or shortness of breath. He did ask about possible rehab placement because of the event that occurred this evening. He was therefore evaluated by social work but informed that he does not qualify for placement. Therefore at this time as he has had no return of his bronchospasm and is satting well on 5 L which he has the same oxygen to use at home and does not qualify for placement he will be discharged at this time Discharge Plan Triage Chief Complaint: Shortness of Breath Other Complaint: Hyperglycemia ED Provider: Emmanuel Sams Dx/Rx/DC Orders Clinical Impression: Acute bronchospasm Instructions: ED Bronchospasm (Adult) Prescriptions: New albuterol sulfate [Ventolin HFA] 90 mcg/actuation HFA aerosol inhaler 1 - 2 puff inhalation Q4H PRN PRN (Reason: Wheezing) Qty: 1 RF: 0 ipratropium-albuterol 0.5 mg-3 mg(2.5 mg base)/3 mL solution for nebulization 3 ml inhalation Q6H PRN (Reason: shortness of breath or wheezing) Qty: 90 RF: 0 (DME) nebulizer and compressor Device See Rx Instructions .ROUTE .MEDSUPPLY Qty: 1 RF: 0 No Action metformin 1,000 mg tablet 1,000 mg PO DAILY 30 Days Qty: 60 RF: 0 triamcinolone acetonide [Nasacort] 55 mcg aerosol,spray 2 spray INTRANASAL DAILY PRN (Reason: rhinitis) RF: 0 Farxiga 10 mg tablet 10 mg PO DAILY RF: 0 gemfibrozil 600 mg tablet 600 mg PO BID Qty: 180 RF: 3 pravastatin 20 mg tablet 20 mg PO DAILY Qty: 90 RF: 3 glimepiride 2 mg tablet 1 mg PO QAM RF: 0 pseudoephedrine HCl 240 mg tablet extended release 24 hr 240 mg PO DAILY PRN (Reason: nasal congestion) RF: 0 omeprazole 40 mg capsule,delayed release(DR/EC) 40 mg PO BIDCM Qty: 0 RF: 0 losartan 25 mg tablet 25 mg PO DAILY Qty: 90 RF: 3 Primary Care Provider: Casey Valles Referrals: Casey Valles MD [Primary Care Provider] - Disposition Disposition: Home, Self Care
[2021-04-28 23:06] VITALS: O2SAT 90
--- NOTE | 2021-04-29 15:26 | CASEMGMT ---
RN CM Discharge Follow Up Phone Call: [place]: Vicki Strata:3 Call Date: 04/29/21 Discharge Date: 04/28/21 Time of Call:1526 Duration:<1 min Admitting Dx: COVID 19 KARMEN COPELAND attempted to complete follow up phone call after recent hospitalization, phone forwarded to identified voicemail. Left message for reason for call and call back number. Noted pt to be seen in the ER lastnight with bronchospasm. Pt dc'd home.
== END 2021-04-28 23:07 | disposition home or self-care (01) ==
PROVIDERS: Emergency Provider Emergency Medicine; PCP Family Medicine
DX: J98.01 Acute bronchospasm (principal); E11.65 Type 2 diabetes mellitus with hyperglycemia; G47.30 Sleep apnea, unspecified; I10 Essential (primary) hypertension; K21.9 Gastro-esophageal reflux disease without esophagitis; Z79.84 Long term (current) use of oral hypoglycemic drugs; Z79.899 Other long term (current) drug therapy
CPT/HCPCS: 94640; 99251; 99284; A4216; G0463

== ENCOUNTER → 2021-05-27 09:26 | Outpatient (CLI) | payer OTHER, SELFPAY ==
[2021-05-27 10:10] LABS: Hemoglobin A1c 8.6 % (3.8-5.6)
[2021-05-27 10:54] LABS: Anion Gap 7 (5-15); BUN 17 mg/dL (7-18); BUN/Creat Ratio 16.7 RATIO (10-20); Calcium,Total 9.6 mg/dL (8.5-10.1); Chloride 101 mmol/L (98-107); Cholesterol 169 mg/dL (200); Creatinine, Serum 1.02 mg/dL (0.70-1.30); EST Glomerular Filtration Rate 81 mL/min (>60); Est Glom Filt Rate - Afr Amer 98 mL/min (>60); Glucose 214 mg/dL (74-106); High Density Lipoprotein 58 mg/dL; Potassium 4.1 mmol/L (3.5-5.1); Sodium Level 136 mmol/L (136-145); Triglycerides 98 mg/dL; Very Low Density Lipoprotein 20 mg/dL (5-40)
== END ==
PROVIDERS: PCP Family Medicine; Referring Provider Family Medicine; Visit Provider Family Medicine
DX: E11.9 Type 2 diabetes mellitus without complications (principal); E29.1 Testicular hypofunction
CPT/HCPCS: 36415; 80048; 80061; 83036; 84403

== ENCOUNTER 2021-06-09 10:57 | Day surgery (SDC) | payer OTHER, SELFPAY ==
[2021-06-09] VITALS (7 sets, daily range): BP systolic 107–125; BP diastolic 87–95; PULSE 74–88; RESP 16; TEMP 36.2–36.5; O2SAT 93–97; BMI 28.0
[2021-06-09] MEDS: Lactated Ringers 1,000 ML 15 ML IV (11:29)
--- NOTE | 2021-06-09 12:00 | EGD_PTH ---
PATIENT: DUARTE MARRERO LOC: EN U#:[id number] AGE/SX: 50/M ROOM: RE06/09/[address]: Dr. Fede Bailey DO : 1970 BED: DIS: 06/09/2021 SPEC #: [id number] RECD: 06/09/21 15:18 STATUS: FERNANDA HONEY #: [id number] OMER: 06/09/21 12:[address]: Fede Bailey DEPT: SURGICAL PATHOLOGY RECD BY: Paulette Lau ENTERED: 06/10/21 09:36 SP TYPE: EGD BIOPSY NOY DR: Dr. Casey Valles MD Tissues: A - Esophagus, NOS B - Ascending colon C - COLON BIOPSY D - Sigmoid colon biopsy Procedures: Special Stain Group II Surgery Specimen Level IV Alcian Blue/PAS (control) HEADER OPERATION: EGD, colonoscopy PRE-OP DIAGNOSIS: Acute GI bleed TISSUE SUBMITTED: A ? Distal esophagus biopsy, B ? Ascending colon polyp biopsy, C ? Hepatic flexure biopsy, D ? Sigmoid colon polyp biopsy MICROSCOPIC DIAGNOSIS A. Distal esophagus, biopsy: Fragments of gastric mucosa with acute and chronic inflammation. Intestinal metaplasia (goblet cell metaplasia) not identified. See comment. B. Ascending colon polyp, biopsy: A fragment of colonic mucosa, no pathologic diagnosis. C. Hepatic flexure, biopsy: Fragments of colonic mucosa, no pathologic diagnosis. D. Sigmoid colon polyp, biopsy: Tubular adenoma. Fragments of fecal material. SJ:thompson 06/11/2021 COMMENT A. Alcian blue/PAS stain with matched control is used in the evaluation of the specimen. MICROSCOPIC DESCRIPTION Slides are reviewed. GROSS DESCRIPTION A - Received in fixative is one container labeled with the patient's name and designated distal esophagus. The specimen consists of two irregular fragments of light cedillo soft tissue that in aggregate measure 0.7 x 0.5 x 0.1 cm. The specimen is totally submitted in one cassette. B - Received in fixative is one container labeled with the patient's name and designated ascending colon polyp. The specimen consists of one irregular fragment of light cedillo soft tissue that measures 0.3 x 0.3 x 0.1 cm. The specimen is totally submitted in one cassette. C - Received in fixative is one container labeled with the patient's name and designated hepatic flexure biopsy. The specimen consists of two irregular fragments of light cedillo soft tissue that in aggregate measure 0.5 x 0.3 x 0.1 cm. The specimen is totally submitted in one cassette. D - Received in fixative is one container labeled with the patient's name and designated sigmoid colon polyp biopsy. The specimen consists of multiple irregular fragments of light cedillo soft tissue mixed with fecal material that in aggregate measure 0.5 x 0.5 x 0.1 cm. The specimen is totally submitted in one cassette. / SJ:rg 06/10/21 TC:1 CPT: 79151 x4, 14495
--- NOTE | 2021-06-09 12:33 | EX.PCM.CON.G ---
HPI Consult Data Date of Consult: 06/09/21 HPI Narrative HPI Narrative: DUARTE MARRERO, is a 50 M who presents 50 M who presents to the office today for the evaluation of lower gi bleeding. Recent hospitalization r/t COVID with pne. He is still on home oxygen to maintain oxygen saturation above 90%. On the day of discharge he had a large BM of blood. He has lost some weight. He has a history of hemorrhoid disease and diverticular disease. He does get abdominal pain on occasion. Particularly crampy left lower quadrant pain that is relieved by bowel movement. 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 Combined with a history of constipation that occurs for several days, will use OTC medications as needed. ROS Const Constitutional: Positive for fatigue Eyes Eyes: Positive for blurry vision ENT ENT: Positive for nosebleed/epistaxis, nasal congestion and hoarseness Resp Respiratory: Positive for cough Cardio Cardiology: Positive for shortness of breath and dyspnea on exertion Gastro GI: Positive for constipation Musc Musculoskeletal: Positive for back pain and Arthritis Skin Skin: Positive for dry skin Psych Psychiatric: Positive for anxiety Endo Endocrine: Positive for fatigue Exam Const General: cooperative and comfortable Nutritional Appearance: average body habitus and well nourished HENMT Head: normal to inspection Ears: hearing grossly normal bilaterally Nose: external nose normal Face and sinus: normal facial exam Mouth: oral mucosae normal Throat: posterior oropharynx normal Eyes General: appearance normal, both eyes and all related structures Neck Neck: normal visual inspection Chest Chest palpation & inspection: normal inspection of the chest and normal palpation of entire chest wall Resp Effort & Inspection: normal respiratory effort Auscultation: Bilateral: Clear to Auscultation Cardio Palpation: normal PMI Rate: regular rate Rhythm: regular rhythm GI Inspection: normal to inspection Auscultation: normal bowel sounds Percussion: normal to percussion Palpation: no hepatosplenomegaly Skin General: no rashes or lesions noted Neuro General: patient alert Extrem General: normal to inspection Psych Affect: normal affect Quality Reporting Tobacco Screening ([facility]) Smoking Status: Never smoker Assessment and Plan Assessment and Plan (1) GI bleeding: Status: Acute Plan - Dr. Mistry Friend, DO: He was discovered to be anemic in the past. He is not anemic at this time. He also has a history of gastroesophageal reflux disease. Since he has a history of gastroesophageal reflux disease he should be screened for Sales's esophagus. He should also undergo colonoscopy for his GI bleeding. If it is internal hemorrhoidal disease and we can fix it during the colonoscopy. We will also be able to assess him for any changes in the rectum associated with bicycling including proctitis, along with hemorrhoidal disease. REPLACED BY [facility] Medical History (Updated 06/02/21 @ 15:33 by Dania Fernandez) Alcohol abuse Anxiety Arthritis Cardiology follow-up encounter CPAP (continuous positive airway pressure) dependence Depression Diabetes GERD (gastroesophageal reflux disease) GI bleeding High cholesterol History of echocardiogram History of echocardiogram History of hiatal hernia History of IBS History of steroid therapy Hyperlipidemia Hypertension Leg cramps Non-smoker On home oxygen therapy Psoriatic arthritis Right bundle branch block Sleep apnea Type 2 diabetes mellitus without complications Home Medications metformin 1,000 mg tablet 1,000 mg PO DAILY 30 Days #60 tab 05/22/18 [History Last Taken Unknown] triamcinolone acetonide 55 mcg nasal spray aerosol 2 spray INTRANASAL DAILY PRN 12/07/18 [History Last Taken Unknown] gemfibrozil 600 mg tablet 600 mg PO BID #180 tab 07/02/19 [Rx Last Taken Unknown] glimepiride 2 mg tablet 1 mg PO QAM tab 07/18/19 [History Last Taken Unknown] dapagliflozin 10 mg tablet 10 mg PO DAILY tab 05/14/20 [History Last Taken Unknown] pseudoephedrine HCl 240 mg tablet,extended release 24 hr 240 mg PO DAILY PRN tab 05/14/20 [History Last Taken Unknown] albuterol sulfate [Ventolin HFA] 1 - 2 puff INHALATION Q4H PRN PRN #1 device 04/28/21 [Rx Last Taken Unknown] nebulizer and compressor #1 ea 04/28/21 [Rx Last Taken Unknown] pravastatin 20 mg tablet 20 mg PO DAILY #90 tab 04/30/21 [Rx Last Taken Unknown] losartan 25 mg tablet 12.5 mg PO DAILY #90 tab 05/18/21 [Rx Last Taken Unknown] omeprazole 40 mg capsule,delayed release 40 mg PO DAILY cap 05/18/21 [History Last Taken Unknown] Allergy/AdvReac Type Severity Reaction Status Date / Time amoxicillin [From Augmentin] AdvReac Diarrhea Verified 06/09/21 11:15 clavulanic acid AdvReac Diarrhea Verified 06/09/21 11:15 [From Augmentin] Family History Father CAD (coronary artery disease) FROM [place] AGE 65 Mother Diabetes Surgical History (Updated 06/02/21 @ 15:33 by Dania Fernandez) History of penile implant (~09/2019) History of sinus surgery Hx of colonoscopy Hx of fusion of cervical spine Hx of left knee surgery Hx of tonsillectomy Social History Smoking Status: Never smoker alcohol intake: current substance use type: does not use
--- NOTE | 2021-06-09 13:56 | OP.EGD_ITS ---
Patient Name: Tello Blue Procedure Date: 06/09/2021 12:59 PM Date of : 1970 Age: 50 Procedure: Upper GI endoscopy Indications: Heartburn, Esophageal reflux Providers: Fede Bailey DO Medicines: See the Anesthesia note for documentation of the administered medications Patient Profile: This is a 50 year old male. Refer to note in patient chart for documentation of history and physical. Patient has symptoms of chronic heartburn. Complications: No immediate complications. Procedure: Pre-Anesthesia Assessment: - Prior to the procedure, a History and Physical was performed, and patient medications and allergies were reviewed. The risks and benefits of the procedure and the sedation options and risks were discussed with the patient. All questions were answered and informed consent was obtained. Patient identification and proposed procedure were verified by the physician. Mental Status Examination: normal. CV Examination: normal. Prophylactic Antibiotics: The patient does not require prophylactic antibiotics. Prior Anticoagulants: The patient has taken no previous anticoagulant or antiplatelet agents. ASA Grade Assessment: II - A patient with mild systemic disease. After reviewing the risks and benefits, the patient was deemed in satisfactory condition to undergo the procedure. The anesthesia plan was to use moderate sedation / analgesia (conscious sedation). Immediately prior to administration of medications, the patient was re-assessed for adequacy to receive sedatives. The heart rate, respiratory rate, oxygen saturations, blood pressure, adequacy of pulmonary ventilation, and response to care were monitored throughout the procedure. The physical status of the patient was re-assessed after the procedure. After obtaining informed consent, the endoscope was passed under direct vision. Throughout the procedure, the patient's blood pressure, pulse, and oxygen saturations were monitored continuously. The Colonoscope was introduced through the and advanced to the. The gastroscope was introduced through the mouth, and advanced to the second part of duodenum. The upper GI endoscopy was accomplished without difficulty. The patient tolerated the procedure well. Moderate Sedation: Moderate (conscious) sedation was administered by the endoscopy nurse and supervised by the endoscopist. The patient's oxygen saturation, heart rate, blood pressure and response to care were monitored. Total physician intraservice time was 15 minutes. Scope In: 1:19:47 PM Scope Out: 1:25:36 PM Total Procedure Duration Time 0 hours 5 minutes 49 seconds Findings: LA Grade A (one or more mucosal breaks less than 5 mm, not extending between tops of 2 mucosal folds) esophagitis with no bleeding was found 34 to 35 cm from the incisors. Biopsies were taken with a cold forceps for histology. Multiple 5 mm [pedicle] polyps with no stigmata of recent bleeding were found in the gastric fundus. The second portion of the duodenum was normal. Impression: - LA Grade A reflux esophagitis. Biopsied. - Multiple gastric polyps. - Normal second portion of the duodenum. Recommendation: - Await pathology results. - Repeat upper endoscopy in 1 year for surveillance based on pathology results. - Return to GI clinic in 2 weeks. - Continue present medications. Procedure Code(s): --- Professional --- 92944, Esophagogastroduodenoscopy, flexible, transoral; with biopsy, single or multiple G0500, Moderate sedation services provided by the same physician or other qualified health laboratory animal care veterinarian performing a gastrointestinal endoscopic service that sedation supports, requiring the presence of an independent trained observer to assist in the monitoring of the patient's level of consciousness and physiological status; initial 15 minutes of intra-service time; patient age 5 years or older (additional time may be reported with 63307, as appropriate) Diagnosis Code(s): --- Professional --- K21.0, Gastro-esophageal reflux disease with esophagitis K31.7, Polyp of stomach and duodenum CPT copyright 2017 [employer]. All rights reserved. The codes documented in this report are preliminary and upon surgical processor review may be revised to meet current compliance requirements. Fede Bailey DO 06/09/2021 1:56:21 PM This report has been signed electronically. Number of Addenda: 1 Note Initiated On: 06/09/2021 12:59 PM Addendum Number: 1 Addendum Date: 03/12/2022 6:36:33 AM MAC was used instead of moderate sedation for this patient. Fede Bailey DO 03/12/2022 6:36:38 AM This report has been signed electronically.
--- NOTE | 2021-06-09 14:02 | OP.COLON_ITS ---
Patient Name: Tello Blue Procedure Date: 06/09/2021 1:25 PM Date of : 1970 Age: 50 Procedure: Colonoscopy Indications: Screening for colorectal malignant neoplasm Providers: Fede Bailey DO Medicines: See the Anesthesia note for documentation of the administered medications Patient Profile: This is a 50 year old male. Refer to note in patient chart for documentation of history and physical. Patient has symptoms of chronic heartburn. Last Colonoscopy: date unknown. Complications: No immediate complications. Procedure: Pre-Anesthesia Assessment: - Prior to the procedure, a History and Physical was performed, and patient medications and allergies were reviewed. The risks and benefits of the procedure and the sedation options and risks were discussed with the patient. All questions were answered and informed consent was obtained. Patient identification and proposed procedure were verified by the physician. Mental Status Examination: normal. CV Examination: normal. Prophylactic Antibiotics: The patient does not require prophylactic antibiotics. Prior Anticoagulants: The patient has taken no previous anticoagulant or antiplatelet agents. ASA Grade Assessment: II - A patient with mild systemic disease. After reviewing the risks and benefits, the patient was deemed in satisfactory condition to undergo the procedure. The anesthesia plan was to use moderate sedation / analgesia (conscious sedation). Immediately prior to administration of medications, the patient was re-assessed for adequacy to receive sedatives. The heart rate, respiratory rate, oxygen saturations, blood pressure, adequacy of pulmonary ventilation, and response to care were monitored throughout the procedure. The physical status of the patient was re-assessed after the procedure. After I obtained informed consent, the scope was passed under direct vision. Throughout the procedure, the patient's blood pressure, pulse, and oxygen saturations were monitored continuously. The Colonoscope was introduced through the anus and advanced to the terminal ileum. The Colonoscope was introduced through the anus and advanced to the terminal ileum, with identification of the appendiceal orifice and IC valve. The colonoscopy was performed without difficulty. The patient tolerated the procedure well. The quality of the bowel preparation was good. Moderate Sedation: Moderate (conscious) sedation was administered by the endoscopy nurse and supervised by the endoscopist. The patient's oxygen saturation, heart rate, blood pressure and response to care were monitored. Total physician intraservice time was 15 minutes. Moderate (conscious) sedation was administered by the endoscopy nurse and supervised by the endoscopist. The patient's oxygen saturation, heart rate, blood pressure and response to care were monitored. Total physician intraservice time was 15 minutes. Scope In: 1:30:16 PM Scope Out: 1:50:49 PM Total Procedure Duration Time 0 hours 20 minutes 33 seconds Findings: Hemorrhoids were found on perianal exam. Two sessile polyps were found in the sigmoid colon. The polyps were 1 to 2 mm in size. These polyps were removed with a hot snare. Resection and retrieval were complete. Verification of patient identification for the specimen was done. Estimated blood loss was minimal. Localized mild inflammation characterized by congestion (edema) was found at the hepatic flexure. Biopsies were taken with a cold forceps for histology. Verification of patient identification for the specimen was done. Estimated blood loss was minimal. The exam was otherwise without abnormality on direct and retroflexion views. Impression: - Hemorrhoids found on perianal exam. - Two 1 to 2 mm polyps in the sigmoid colon, removed with a hot snare. Resected and retrieved. - Localized mild inflammation was found at the hepatic flexure secondary to colitis. Biopsied. - The examination was otherwise normal on direct and retroflexion views. Recommendation: - Discharge patient to home. - Resume previous diet. - Continue present medications. - Await pathology results. - Repeat colonoscopy in 5 years for surveillance. - Return to GI office in 2 weeks. Procedure Code(s): --- Professional --- 93994, Colonoscopy, flexible; with removal of tumor(s), polyp(s), or other lesion(s) by snare technique 29241, 59, Colonoscopy, flexible; with biopsy, single or multiple G0500, Moderate sedation services provided by the same physician or other qualified health care management specialist performing a gastrointestinal endoscopic service that sedation supports, requiring the presence of an independent trained observer to assist in the monitoring of the patient's level of consciousness and physiological status; initial 15 minutes of intra-service time; patient age 5 years or older (additional time may be reported with 27910, as appropriate) G0500, Moderate sedation services provided by the same physician or other qualified health care management specialist performing a gastrointestinal endoscopic service that sedation supports, requiring the presence of an independent trained observer to assist in the monitoring of the patient's level of consciousness and physiological status; initial 15 minutes of intra-service time; patient age 5 years or older (additional time may be reported with 43550, as appropriate) Diagnosis Code(s): --- Professional --- Z12.11, Encounter for screening for malignant neoplasm of colon K64.9, Unspecified hemorrhoids D12.5, Benign neoplasm of sigmoid colon CPT copyright 2017 [employer]. All rights reserved. The codes documented in this report are preliminary and upon technical rep review may be revised to meet current compliance requirements. Fede Bailey DO 06/09/2021 2:02:45 PM This report has been signed electronically. Number of Addenda: 1 Note Initiated On: 06/09/2021 1:25 PM Addendum Number: 1 Addendum Date: 03/12/2022 6:36:51 AM MAC was used instead of moderate sedation for this patient. Fede Bailey DO 03/12/2022 6:36:59 AM This report has been signed electronically.
[2021-06-09 15:05] LABS: Bedside Glucose 183 mg/dL (70-110)
== END 2021-06-09 14:53 ==
LOC: EN 10:59 → AC 11:00
PROVIDERS: PCP Family Medicine; Referring Provider Family Medicine; Visit Provider Internal Medicine Gastroenterology
PROC: 0DJD8ZZ Inspection of Lower Intestinal Tract, Via Natural or Artificial Opening Endoscopic (ICD-10-PCS; CPT 45378; principal; 2021-06-09 11:55)
DX: Z12.11 Encounter for screening for malignant neoplasm of colon (principal); K64.9 Unspecified hemorrhoids; D12.5 Benign neoplasm of sigmoid colon; K21.00 Gastro-esophageal reflux disease with esophagitis, without bleeding; K31.7 Polyp of stomach and duodenum; Z99.81 Dependence on supplemental oxygen; F41.9 Anxiety disorder, unspecified; E78.00 Pure hypercholesterolemia, unspecified; I10 Essential (primary) hypertension; E78.5 Hyperlipidemia, unspecified; E11.9 Type 2 diabetes mellitus without complications; Z86.16 Personal history of COVID-19
CPT/HCPCS: 43239; 45380; 45385; 82962; 88305; 88313; J7120; J2405

== ENCOUNTER 2021-07-29 15:52 | Outpatient (CLI) | payer OTHER, SELFPAY ==
--- NOTE | 2021-07-29 15:57 | CT_ITS ---
STUDY: CT CHEST WITHOUT CONTRAST REASON FOR EXAM: Male, 50 years old. Post Covid RADIATION DOSAGE (If Supplied By Facility): CTDIvol = ( 16.58 ) mGy, DLP = ( 694.39 ) mGycm TECHNIQUE: Transaxial imaging was performed without the administration of intravenous contrast material. Multiplanar coronal and sagittal images were reformatted. Individualized dose optimization techniques were used for this CT. COMPARISON: CTA 04/16/2021 FINDINGS: Multilobar groundglass opacities evident on the prior study have resolved. However, residual intralobular septal thickening and curvilinear reticular opacities and multiple pulmonary lobes persist. Some areas of sparing involving the subpleural lungs. Central, cylindrical bronchiectasis and multiple pulmonary lobes is now identified. No honeycombing. There is no demonstrated pleural abnormality. Normal heart and pericardium. Normal mediastinum. Normal hilar regions. Normal unenhanced pulmonary arteries. Normal aorta arch and descending thoracic aorta. Fusion hardware of the lower cervical spine. Gallbladder is contracted. CT/Chest without Contrast IMPRESSION: 1. 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 No honeycombing. 2. Resolution of groundglass opacities seen previously. Electronically Signed: Mark Marino MD ([place]) at 16:24 EST , Service support ,
== END 2021-07-29 23:59 | disposition short-term general hospital (02) ==
LOC: CT 15:55
PROVIDERS: PCP Family Medicine; Referring Provider Internal Medicine Critical Care Medicine; Visit Provider Internal Medicine Critical Care Medicine
DX: U07.1 COVID-19 (principal); J96.01 Acute respiratory failure with hypoxia; J12.82 Pneumonia due to coronavirus disease 2019
CPT/HCPCS: 71250

== ENCOUNTER 2021-08-10 09:32 | Outpatient (CLI) | payer OTHER, SELFPAY ==
--- NOTE | 2021-08-10 13:46 | PFTCOMP_ITS ---
COMPLETE PULMONARY FUNCTION TEST INTERPRETATION Brief HPI: Patient is a 50 year old male, currently under the care of myself, who presents to [facility] for complete pulmonary function tests secondary to diagnosis of status post COVID pneumonia. Respiratory therapist reports good effort and reproducible results. Interpretation: Forced expiration spirometry shows no large airways obstructive ventilatory defect with an FEV1 of 76% predicted. There is no significant bronchodilator response by strict ATS criteria. Spirograms are of good quality and plateau normally. The respiratory flow volume loop shows a normal pattern. Lung volumes by body plethysmography show a moderately decreased total lung capacity at 3.73 L, 59% predicted. All other lung volumes are reduced symmetrically. Diffusion capacity by carbon monoxide is at the lower limit of normal at 70% predicted. The airway resistance is normal. No previous pulmonary function tests were available for review. Impression: Moderate restrictive ventilatory defect with a symmetric reduction diffusing capacity.
== END 2021-08-10 23:59 | disposition short-term general hospital (02) ==
PROVIDERS: PCP Family Medicine; Referring Provider Internal Medicine Critical Care Medicine; Visit Provider Internal Medicine Critical Care Medicine
DX: U07.1 COVID-19 (principal); J96.01 Acute respiratory failure with hypoxia; J12.82 Pneumonia due to coronavirus disease 2019
CPT/HCPCS: 94060; 94726; 94729

== ENCOUNTER 2021-08-28 06:25 | Outpatient (CLI) | payer OTHER, SELFPAY ==
[2021-08-28 06:55] VITALS: PULSE 101; PULSE 105; PULSE 115; PULSE 117; PULSE 119; PULSE 120; PULSE 125; PULSE 129; O2SAT 90; O2SAT 91; O2SAT 92; O2SAT 94
--- NOTE | 2021-08-28 07:00 | CPS ---
WORE O2 UNTIL MID JUNE HE IS BACK TO EXERCISING 3-4 DAYS/WEEK. HE COULD TALK THE WHOLE TESTING PERIOD.
--- NOTE | 2021-08-28 11:28 | PCM.PSN.6M ---
PSN 6 Minute Walk Test 6 Minute Walk Test 6 Minute Walk Test: 6 Minute Walk Test PSN:6-Minute Walk Test Start: 08/28/21 06:55 Freq: Status: Active Protocol: RESP.6MINW Document 08/28/21 06:55 FR (Rec: 08/28/21 07:01 FR [id number]) 6 Minute Walk Test Date Performed 08/28/21 Time Performed 06:30 Height 5 ft 9 in Weight: 86.183 kg Weight in Pounds 190.[address]: DR. FOX Assistive device used: None Pre-test Oxygen Delivery Method Room Air Pulse Ox (%) 94 Pulse Rate (60-100 beats/min) 101 H Dyspnea Nilda Scale (0-10) 3 Exertion Nilda Scale (6-20) 6 1st minute Oxygen Delivery Method Room Air Pulse Ox (%) 92 Pulse Rate (60-100 beats/min) 129 H 2nd minute Oxygen Delivery Method Room Air Pulse Ox (%) 90 Pulse Rate (60-100 beats/min) 120 H 3rd minute Oxygen Delivery Method Room Air Pulse Ox (%) 90 Pulse Rate (60-100 beats/min) 125 H 4th minute Oxygen Delivery Method Room Air Pulse Ox (%) 91 Pulse Rate (60-100 beats/min) 115 H 5th minute Oxygen Delivery Method Room Air Pulse Ox (%) 91 Pulse Rate (60-100 beats/min) 119 H 6th minute Oxygen Delivery Method Room Air Pulse Ox (%) 91 Pulse Rate (60-100 beats/min) 117 H Dyspnea Nilda Scale (0-10) 4 Exertion Nilda Scale (6-20) 8 Post-test Oxygen Delivery Method Room Air Pulse Ox (%) 94 Pulse Rate (60-100 beats/min) 105 H Full Laps Walked 21 Partial Lap, Number of Tiles Walked 11 Total Distance Walked (ft) 1250 08/28/21 07:00 Cardiopulmonary Services by Erin Smith WORE O2 UNTIL MID JUNE HE IS BACK TO EXERCISING 3-4 DAYS/WEEK. HE COULD TALK THE WHOLE TESTING PERIOD. Initialized on 08/28/21 07:00 - END OF NOTE Interpretation Interpretation: The patient was able to ambulate 1250 feet over the course of 6 minutes on room air with no assistive devices or breaks. The patient did experience significant desaturation from a baseline of 94% to as low as 90%, but had persistent tachycardia throughout testing with a peak heart rate of 129 bpm. These findings are consistent with a cardiovascular limitation exercise tolerance. Recommendations Recommendations: No supplemental oxygen is indicated at this time.
== END 2021-08-28 23:59 | disposition home or self-care (01) ==
PROVIDERS: PCP Family Medicine; Referring Provider Internal Medicine Critical Care Medicine; Visit Provider Internal Medicine Critical Care Medicine
DX: J96.01 Acute respiratory failure with hypoxia (principal); U07.1 COVID-19; J12.82 Pneumonia due to coronavirus disease 2019
CPT/HCPCS: 94618

== ENCOUNTER 2021-10-26 06:37 | Outpatient (CLI) | payer OTHER, SELFPAY ==
[2021-10-26 08:09] LABS: Anion Gap 4 (5-15); BUN 11 mg/dL (7-18); BUN/Creat Ratio 10.2 RATIO (10-20); Calcium,Total 8.5 mg/dL (8.5-10.1); Chloride 106 mmol/L (98-107); Cholesterol 198 mg/dL (200); Creatinine, Serum 1.08 mg/dL (0.70-1.30); EST Glomerular Filtration Rate 76 mL/min (>60); Est Glom Filt Rate - Afr Amer 92 mL/min (>60); Glucose 231 mg/dL (74-106); High Density Lipoprotein 49 mg/dL; Potassium 4.1 mmol/L (3.5-5.1); Sodium Level 141 mmol/L (136-145); Triglycerides 103 mg/dL; Very Low Density Lipoprotein 21 mg/dL (5-40)
== END 2021-10-26 23:59 | disposition home or self-care (01) ==
LOC: LAB 06:37
PROVIDERS: PCP Family Medicine; Referring Provider Family Medicine; Visit Provider Family Medicine
DX: E11.9 Type 2 diabetes mellitus without complications (principal)
CPT/HCPCS: 36415; 80048; 80061

== ENCOUNTER → 2022-01-14 | Outpatient (CLI) | payer OTHER, SELFPAY ==
--- NOTE | 2022-01-15 05:42 | PFTCOMP_ITS ---
COMPLETE PULMONARY FUNCTION TEST INTERPRETATION Brief HPI: Patient is a 51-year-old male, currently under the care of myself, who presents to [facility] for complete pulmonary function tests secondary to diagnosis of pulmonary fibrosis. Respiratory therapist reports good effort and reproducible results. Interpretation: Forced expiration spirometry shows no large airways obstructive ventilatory defect with an FEV1 of 85% predicted. There is no significant bronchodilator response by strict ATS criteria. Spirograms are of good quality and plateau normally. The respiratory flow volume loop shows a normal pattern. Lung volumes by body plethysmography show a decreased total lung capacity at 4.37 L, 70% predicted. All other lung volumes are reduced symmetrically. Diffusion capacity by carbon monoxide is at the lower limit of normal at 74% predicted. The airway resistance is normal. Compared to previous pulmonary function tests from 08/10/2021, there is been significant improvement in FEV1 by 13% and lung volumes by 17%. Impression: Mild restrictive ventilatory defect with a symmetric reduction diffusing capacity, but some improvement compared to previous testing.
== END | disposition home or self-care (01) ==
LOC: PSN 09:19
PROVIDERS: PCP Family Medicine; Referring Provider Internal Medicine Critical Care Medicine; Visit Provider Internal Medicine Critical Care Medicine
DX: J84.10 Pulmonary fibrosis, unspecified (principal)
CPT/HCPCS: 94060; 94726; 94729

== ENCOUNTER → 2022-02-11 | Outpatient (CLI) | payer OTHER, SELFPAY | END | disposition home or self-care (01) | LOC: LAB 07:51 | PROVIDERS: PCP Family Medicine; Visit Provider Family Medicine | DX: E29.1 Testicular hypofunction (principal) | CPT/HCPCS: 36415; 84403 ==

== ENCOUNTER → 2022-06-19 | Outpatient (CLI) | payer OTHER, SELFPAY ==
[2022-06-19 08:28] LABS: Anion Gap 5 (5-15); BUN 10 mg/dL (7-18); BUN/Creat Ratio 8.9 RATIO (10-20); Calcium,Total 8.9 mg/dL (8.5-10.1); Chloride 109 mmol/L (98-107); Cholesterol 220 mg/dL (200); Creatinine, Serum 1.12 mg/dL (0.70-1.30); EST Glomerular Filtration Rate 73 mL/min (>60); Est Glom Filt Rate - Afr Amer 88 mL/min (>60); Glucose 132 mg/dL (74-106); High Density Lipoprotein 57 mg/dL; Potassium 4.1 mmol/L (3.5-5.1); Sodium Level 142 mmol/L (136-145); Triglycerides 204 mg/dL; Very Low Density Lipoprotein 41 mg/dL (5-40)
== END | disposition home or self-care (01) ==
LOC: LAB 07:52
PROVIDERS: PCP Family Medicine; Referring Provider Family Medicine; Visit Provider Family Medicine
DX: E11.9 Type 2 diabetes mellitus without complications (principal)
CPT/HCPCS: 36415; 80048; 80061

== ENCOUNTER 2022-09-02 22:14 | Emergency (ER) | payer OTHER, SELFPAY ==
[2022-09-02 22:15] VITALS: BP 144/90; PULSE 120; RESP 18; TEMP 37.8; O2SAT 98; BMI 28.0
[2022-09-02 23:30] LABS: Absolute Lymphocyte Count 0.45 X10^3/uL (0.83-4.51); Absolute Neutrophil Count 6.7 X10^3/uL (2.0-7.7); Basophil# 0.04 X10^3/uL; Basophil% 0.5 % (0-1); Eosinophils% 1.2 % (0-5); Hemoglobin 16.6 g/dL (13.0-16.5); Lymphocyte # 0.45 X10^3/ul (0.83-4.51); Lymphocyte % 5.5 % (19-41); Mean Corp Hgb Conc 33.2 g/dL (32-36); Mean Corpuscular Hgb 33.1 pg (27.0-32.0); Mean Corpuscular Volume 99.8 fL (80-94); Mean Platelet Vol. 9.9 fl (6.2-12.0); Monocyte# 0.71 X10^3/uL; Monocyte% 8.7 % (0-10); NRBC Flagged by Analyzer 0 % (0-5); Neutrophil # 6.67 X10^3/uL (2.7-7.7); Neutrophil % 81.4 % (47-70); POSITIVE DIFFERENTIAL YES; Platelet Count 208 K/mm3 (150-450); RBC Distribution Width CV 13.1 % (11.6-14.6); RBC Distribution Width SD 47.9 fl (35.1-43.9); Red Blood Count 5.01 M/mm3 (4.6-6.2); White Blood Count 8.2 K/mm3 (4.4-11.0)
[2022-09-02 23:33] LABS: Differential Indicated SCAN CRITERIA MET
[2022-09-02 23:35] LABS: AST(SGOT) 22 U/L (15-37); Alanine Aminotransfer ALT/SGPT 25 U/L (16-61); Albumin, Serum 3.5 g/dL (3.2-5.0); Alkaline Phosphatase 68 U/L (45-117); Anion Gap 9 (5-15); BUN 14 mg/dL (7-18); BUN/Creat Ratio 14.5 RATIO (10-20); Bilirubin, Direct 0.19 mg/dL (0.00-0.30); Calcium,Total 8.5 mg/dL (8.5-10.1); Chloride 106 mmol/L (98-107); Creatinine, Serum 0.97 mg/dL (0.70-1.30); EST Glomerular Filtration Rate 86 mL/min (>60); Est Glom Filt Rate - Afr Amer 104 mL/min (>60); Estimated Creatinine Clearance 88.07 ml/min; Glucose 188 mg/dL (74-106); Lipase 124 U/L (73-393); Potassium 3.5 mmol/L (3.5-5.1); Protein, Total 7.5 g/dL (6.4-8.2); Sodium Level 138 mmol/L (136-145)
[2022-09-02] MEDS: 0.9% Normal Saline 1,000 ML 999 ML IV (23:39)
[2022-09-02] MEDS: Acetaminophen 500 MG Tablet 1000 MG PO (23:39)
[2022-09-02] MEDS: Diphenoxylate/Atrop 1 Tablet 2 TABLET PO (23:39)
[2022-09-02] MEDS: Ondansetron 4 MG/2 ML Vial IV (23:41)
[2022-09-02] MEDS: Morphine 4 MG/ML Syringe IV (23:42)
[2022-09-02] MEDS: Dicyclomine 20 MG/2 ML Vial IM (23:42)
[2022-09-02 23:45] VITALS: BP 126/82; PULSE 105; RESP 18; O2SAT 99
[2022-09-02 23:53] LABS: Differential Comment SCANNED
[2022-09-03 00:33] VITALS: BP 126/80; PULSE 98; RESP 18; O2SAT 97
--- NOTE | 2022-09-03 00:35 | EDS_ITS ---
HPI History of Present Illness Chief Complaint: Abd Pain Narrative Narrative: Patient is a 51-year-old male with past medical history of hypertension and type 2 diabetes. He states that on Tuesday he developed bloating of his abdomen and then progressed to multiple episodes of watery diarrhea as well as a few episodes of nausea and vomiting. He states he has been having poor oral intake since that time with persistent/increasing abdominal pain. He denies any known sick contacts. He denies any travel outside the country recent antibiotic use or exposure to livestock. He states that he has been trying [id number] medications without symptom improvement he presents for evaluation [facility] Medical History Alcohol abuse Anxiety Arthritis Cardiology follow-up encounter COVID CPAP (continuous positive airway pressure) dependence Depression Diabetes Essential hypertension GERD (gastroesophageal reflux disease) GI bleeding High cholesterol History of echocardiogram History of echocardiogram History of hiatal hernia History of IBS History of steroid therapy Hyperlipidemia Hypertension Leg cramps Non-smoker On home oxygen therapy Pneumonia due to 2019 novel coronavirus Psoriatic arthritis Right bundle branch block Sleep apnea Type 2 diabetes mellitus without complications Home Medications metformin 1,000 mg tablet 1,000 mg PO DAILY 30 days #60 tabs 05/22/18 [History Last Taken Unknown] triamcinolone acetonide 55 mcg nasal spray aerosol (Nasacort) 2 spray intranasal DAILY PRN rhinitis 12/07/18 [History Last Taken Unknown] gemfibrozil 600 mg tablet 600 mg PO BID #180 tabs 07/02/19 [Rx Last Taken Unknown] dapagliflozin 10 mg tablet (Farxiga) 10 mg PO DAILY 05/14/20 [History Last Taken Unknown] pseudoephedrine HCl 240 mg tablet,extended release 24 hr 240 mg PO DAILY PRN nasal congestion 05/14/20 [History Last Taken Unknown] nebulizer and compressor #1 ea 04/28/21 [Rx Last Taken Unknown] omeprazole 40 mg capsule,delayed release See Rx Instructions .Route .COMPLEX #60 caps 07/20/21 [Rx Last Taken Unknown] glimepiride 2 mg tablet 4 mg PO BID 05/24/22 [History Last Taken Unknown] insulin glargine 100 unit/mL (3 mL) subcutaneous pen (Lantus Solostar U-100 Insulin) 10 unit subcut QPM 05/24/22 [History Last Taken Unknown] pravastatin 20 mg tablet 20 mg PO DAILY #90 tabs 06/14/22 [Rx Last Taken Unknown] losartan 25 mg tablet 25 mg PO DAILY #90 tabs 07/09/22 [Rx Last Taken Unknown] dicyclomine 20 mg tablet 20 mg PO 4X/DAY PRN PRN Abdominal bloating/spasm 7 days #28 tabs 09/03/22 [Rx Last Taken Unknown] diphenoxylate-atropine 2.5 mg-0.025 mg tablet (Lomotil) 1 tab PO 4X/DAY PRN PRN diarrhea 5 days #20 tabs 09/03/22 [Rx Last Taken Unknown] ondansetron 4 mg disintegrating tablet 4 mg PO TID PRN nausea and vomiting #21 tabs 09/03/22 [Rx Last Taken Unknown] oxycodone-acetaminophen 5 mg-325 mg tablet (Percocet) 1 tab PO Q6H PRN pain 3 days #12 tabs 09/03/22 [Rx Last Taken Unknown] Allergy/AdvReac Type Severity Reaction Status Date / Time amoxicillin [From Augmentin] AdvReac Diarrhea Verified 09/02/22 22:17 clavulanic acid AdvReac Diarrhea Verified 09/02/22 22:17 [From Augmentin] Family History Father CAD (coronary artery disease) FROM [place] AGE 65 Mother Diabetes Surgical History History of penile implant (~09/2019) History of sinus surgery Hx of colonoscopy Hx of fusion of cervical spine Hx of left knee surgery Hx of tonsillectomy Social History Smoking Status: Never smoker alcohol intake: current substance use type: does not use ROS ROS ED Constitutional Constitutional ED: Reports chills, fever(s) and subjective ENT ENT ED: Denies sore throat Cardiovascular Cardiovascular: Denies chest pain Respiratory/Chest Respiratory/Chest: Denies cough or dyspnea Gastrointestinal Gastrointestinal: Reports abdominal pain, diarrhea, nausea and vomiting; Denies melena Genitourinary Genitourinary ED: Denies dysuria or hematuria Musculoskeletal Musculoskeletal: Reports myalgias Integumentary Denies rash Neurologic Neurologic: Reports headache(s) Hematologic/Lymphatic Hematologic/Lymphatic: Denies easy bleeding or easy bruising EXAM Physical Exam Const Vital Signs: 09/02/22 22:15 09/02/22 23:45 09/03/22 00:33 Temperature 100.1 F H Temperature Source Temporal Pulse Rate 120 H 105 H 98 Respiratory Rate 18 18 18 Blood Pressure 144/90 H 126/82 H 126/80 H Blood Pressure Mean 108 96 Pulse Ox 98 99 97 Oxygen Delivery Method Room Air Positive well nourished and well developed General Appearance ED: well developed HEENT Reports dry mucous membranes HEENT Narrative: Mucous membranes are dry and tacky without airway edema or compromise or secondary changes to suggest infection in the posterior pharynx Mouth ED: Yes dry mucous membranes Mouth: dry mucous membranes Eyes PERRL and EOMs intact bilaterally General Eye ED: Negative for scleral icterus Neck supple Neck Narrative: No nuchal rigidity or meningeal signs noted Resp normal respiratory effort and clear to auscultation bilaterally Cardio regular rhythm Rate: tachycardic and other Other Details: Tachycardic rate with regular rhythm Radial pulses are +2-4 bilaterally are equal and symmetric GI GI Narrative: Abdomen is soft with mild distention and generalized pain with palpation without voluntary guarding or rigidity. There is no pulsatile mass or fluid wave noted. Auscultation: hyperactive bowel sounds Palpation: soft Back/Spine no CVA tenderness Extremity normal to inspection Neuro oriented x3 and CN's II-XII intact bilaterally Sensorium / Orientation: alert Psych mental status grossly normal Skin no rashes or lesions noted Skin Narrative: Skin turgor slightly increased General Skin Exam: Negative for jaundice MDM MDM MDM Narrative Medical decision making narrative: Patient presented to the ER with low-grade fever. His history and exam is most consistent with a viral stomach infection. As he has mild diffuse pain I do not feel there is a need to jump to an emergent CT scan. Also as he is having diarrhea and passing gas I have low concern for an ileus or obstruction and therefore do not feel need for imaging either. Patient blood work was obtained which shows no leukocytosis no signs of acute kidney injury or severe electrolyte derangement. Patient does not have changes to suggest DKA or HHS and his lipase is normal going against pancreatitis. He was treated with IV fluids Lomotil Zofran and morphine. On reevaluation he reports feeling much better. He has had no bouts of vomiting in the ER and no further bouts of diarrhea. Therefore at this time as work-up reveals no clinically significant findings and patient's had improvement of symptoms with treatment I do not feel there is need for imaging and patient can be discharged with symptomatic medications. Plan of care was discussed with the patient he is agreeable to it and therefore be discharged at this time Lab Data Attestation: I reviewed the patient's lab results. Labs: Laboratory Results - last 24 hr 09/02/22 09/02/22 23:09 23:09 WBC 8.2 RBC 5.01 Hgb 16.6 H Hct 50.0 MCV 99.8 H MCH 33.1 H MCHC 33.2 RDW Std Deviation 47.9 H RDW Coeff of Hernán 13.1 Plt Count 208 MPV 9.9 Immature Gran % (Auto) 2.700 H Neut % (Auto) 81.4 H Lymph % (Auto) 5.5 L Person % (Auto) 8.7 Eos % (Auto) 1.2 Baso % (Auto) 0.5 Absolute Neuts (auto) 6.7 Absolute Lymphs (auto) 0.45 L Nucleated RBC % 0 Differential Comment SCANNED Sodium 138 Potassium 3.5 Chloride 106 Carbon Dioxide 23.0 Anion Gap 9 BUN 14 Creatinine 0.97 Estim Creat Clear Calc 88.07 Est GFR (MDRD) Af Amer 104 Est GFR (MDRD) Non-Af 86 BUN/Creatinine Ratio 14.5 Glucose 188 H Calcium 8.5 Magnesium 2.0 Total Bilirubin 0.70 Direct Bilirubin 0.19 AST 22 ALT 25 Alkaline Phosphatase 68 Total Protein 7.5 Albumin 3.5 Globulin 4.0 Lipase 124 Discharge Plan Triage Chief Complaint: Abd Pain ED Provider: Emmanuel Sams Dx/Rx/DC Orders Clinical Impression: Nausea vomiting and diarrhea, Dehydration, Abdominal pain, Type 2 diabetes mellitus without complications, Essential hypertension Instructions: Abdominal Pain, ED Gastroenteritis, Viral (Adult) Prescriptions: New dicyclomine 20 mg tablet 20 mg PO 4X/DAY PRN PRN (Reason: Abdominal bloating/spasm) 7 Days Qty: 28 0RF ondansetron 4 mg tablet,disintegrating 4 mg PO TID PRN (Reason: nausea and vomiting) Qty: 21 0RF diphenoxylate-atropine [Lomotil] 2.5-0.025 mg tablet 1 tab PO 4X/DAY PRN PRN (Reason: diarrhea) 5 Days Qty: 20 0RF oxycodone-acetaminophen [Percocet] 5-325 mg tablet 1 tab PO Q6H PRN (Reason: pain) 3 Days Qty: 12 0RF No Action metformin 1,000 mg tablet 1,000 mg PO DAILY 30 Days Qty: 60 Label Comments: triamcinolone acetonide [Nasacort] 55 mcg aerosol,spray 2 spray INTRANASAL DAILY PRN (Reason: rhinitis) Farxiga 10 mg tablet 10 mg PO DAILY gemfibrozil 600 mg tablet 600 mg PO BID Qty: 180 3RF glimepiride 2 mg tablet 4 mg PO BID Rx Instructions: administer with breakfast pseudoephedrine HCl 240 mg tablet extended release 24 hr 240 mg PO DAILY PRN (Reason: nasal congestion) Label Comments: TAKE ONE TABLET BY MOUTH DAILY insulin glargine [Lantus Solostar U-100 Insulin] 100 unit/mL (3 mL) insulin pen 10 unit subcut QPM (DME) nebulizer and compressor Device See Rx Instructions .ROUTE .MEDSUPPLY Qty: 1 0RF Rx Instructions: As directed omeprazole 40 mg capsule,delayed release(DR/EC) See Rx Instructions .ROUTE .COMPLEX Qty: 60 0RF Dose Instruction: TAKE 1CAPSULE 2TIMES DAILY FOR 8WEEKS THEN DECREASE TO ONCE DAILY FOR 8WEEKS THEN STOP Rx Instructions: TAKE 1CAPSULE 2TIMES DAILY FOR 8WEEKS THEN DECREASE TO ONCE DAILY FOR 8WEEKS THEN STOP pravastatin 20 mg tablet 20 mg PO DAILY Qty: 90 3RF losartan 25 mg tablet 25 mg PO DAILY Qty: 90 3RF Primary Care Provider: Casey Valles Referrals: Casey Valles MD [Primary Care Provider] - Activity Restrictions/Additional Instructions: Your work-up indicates you have a viral stomach infection which will typically last 3 to 7 days. Take the prescribed medication as directed to help control your symptoms and stay well-hydrated and return to the ER should you have any further concerns Disposition Disposition: Home, Self Care Discharge Date/Time: 09/03/22 00:46
== END 2022-09-03 00:46 | disposition home or self-care (01) ==
PROVIDERS: Emergency Provider Emergency Medicine; PCP Family Medicine; Visit Provider Emergency Medicine
DX: E86.0 Dehydration (principal); L40.50 Arthropathic psoriasis, unspecified; E11.9 Type 2 diabetes mellitus without complications; Z79.4 Long term (current) use of insulin; R11.2 Nausea with vomiting, unspecified; R50.9 Fever, unspecified; I10 Essential (primary) hypertension; E78.00 Pure hypercholesterolemia, unspecified; K21.9 Gastro-esophageal reflux disease without esophagitis; Z99.81 Dependence on supplemental oxygen; Z79.899 Other long term (current) drug therapy; Z79.84 Long term (current) use of oral hypoglycemic drugs; K58.0 Irritable bowel syndrome with diarrhea
CPT/HCPCS: 80048; 80076; 83690; 83735; 85025; 87428; 96361; 96372; 96374; 96375; 99283; J7030; A4216; J2405

== ENCOUNTER → 2023-02-17 | Outpatient (CLI) | payer OTHER, SELFPAY ==
[2023-02-17 09:58] LABS: Anion Gap 4 (5-15); BUN 14 mg/dL (7-18); Calcium,Total 8.9 mg/dL (8.5-10.1); Chloride 107 mmol/L (98-107); Cholesterol 162 mg/dL (200); EST Glomerular Filtration Rate 83 mL/min (>60); Est Glom Filt Rate - Afr Amer 100 mL/min (>60); Glucose 99 mg/dL (74-106); High Density Lipoprotein 65 mg/dL; Potassium 3.7 mmol/L (3.5-5.1); Sodium Level 140 mmol/L (136-145); Triglycerides 66 mg/dL; Very Low Density Lipoprotein 13 mg/dL (5-40)
== END | disposition home or self-care (01) ==
LOC: LAB 08:51
PROVIDERS: PCP Family Medicine; Referring Provider Family Medicine; Visit Provider Family Medicine
DX: E11.9 Type 2 diabetes mellitus without complications (principal)
CPT/HCPCS: 36415; 80048; 80061

== ENCOUNTER → 2023-05-03 | Outpatient (CLI) | payer OTHER, SELFPAY ==
[2023-05-03 18:16] LABS: Uric Acid 3.1 mg/dL (3.5-7.2)
== END | disposition home or self-care (01) ==
LOC: MTLAB 14:28
PROVIDERS: PCP Family Medicine; Referring Provider Orthopaedic Surgery; Visit Provider Orthopaedic Surgery
DX: M10.9 Gout, unspecified (principal)
CPT/HCPCS: 36415; 84550

== ENCOUNTER → 2023-06-30 | Outpatient (CLI) | payer OTHER, SELFPAY ==
--- NOTE | 2023-06-30 09:04 | EKG12_ITS ---
Test Reason : PREOP Blood Pressure : / mmHG Vent. Rate : 087 BPM Atrial Rate : 087 BPM P-R Int : 158 ms QRS Dur : 114 ms QT Int : 380 ms P-R-T Axes : 053 -45 027 degrees QTc Int : 457 ms Normal sinus rhythm Right bundle branch block Left anterior fascicular block Bifascicular block Abnormal ECG Confirmed by STAS PRETTY, LORENA ([id number]), food editor ALEXANDR ROQUE ([id number]) on 07/01/2023 1:34:46 PM Referred By: Angel Hernandez Confirmed By:LORENA MCCLELLAND MD
[2023-06-30 09:43] LABS: Hematocrit 48.5 % (40-54); Hemoglobin 16.3 g/dL (13.0-16.5); Mean Corp Hgb Conc 33.6 g/dL (32-36); Mean Corpuscular Hgb 33.6 pg (27.0-32.0); Mean Platelet Vol. 10.1 fl (6.2-12.0); Platelet Count 265 K/mm3 (150-450); RBC Distribution Width CV 12.1 % (11.6-14.6); RBC Distribution Width SD 44.9 fl (35.1-43.9); Red Blood Count 4.85 M/mm3 (4.6-6.2); White Blood Count 5.9 K/mm3 (4.4-11.0)
[2023-06-30 09:56] LABS: Anion Gap 8 (5-15); BUN 14 mg/dL (7-18); BUN/Creat Ratio 12.7 RATIO (10-20); Calcium,Total 8.8 mg/dL (8.5-10.1); Chloride 104 mmol/L (98-107); EST Glomerular Filtration Rate 74 mL/min (>60); Est Glom Filt Rate - Afr Amer 90 mL/min (>60); Glucose 332 mg/dL (74-106); Potassium 4.1 mmol/L (3.5-5.1); Sodium Level 137 mmol/L (136-145)
[2023-06-30 10:30] LABS: Hemoglobin A1c 8.1 % (3.8-5.6)
== END | disposition home or self-care (01) ==
PROVIDERS: PCP Family Medicine; Referring Provider Orthopaedic Surgery; Visit Provider Orthopaedic Surgery
DX: Z01.810 Encounter for preprocedural cardiovascular examination (principal); I10 Essential (primary) hypertension; Z01.818 Encounter for other preprocedural examination; M75.42 Impingement syndrome of left shoulder; M25.512 Pain in left shoulder; S46.012A Strain of muscle(s) and tendon(s) of the rotator cuff of left shoulder, initial encounter; I45.2 Bifascicular block; R94.31 Abnormal electrocardiogram [ECG] [EKG]
CPT/HCPCS: 36415; 80048; 83036; 85027; 93005

== ENCOUNTER 2023-07-01 09:55 | Emergency (ER) | payer OTHER, SELFPAY ==
[2023-07-01 09:56] VITALS: BP 125/91; PULSE 101; RESP 16; TEMP 36.1; O2SAT 96; BMI 27.3
--- NOTE | 2023-07-01 10:32 | CT_ITS ---
STUDY: CT BRAIN WITHOUT CONTRAST REASON FOR EXAM: Male, 52 years old. Atypical left hand weakness RADIATION DOSAGE (If Supplied By Facility): CTDIvol = ( 44.99 ) mGy, DLP = ( 812.98 ) mGycm TECHNIQUE: Transaxial CT imaging of the brain was performed without administration of intravenous contrast material. Individualized dose optimization techniques were used for this CT. COMPARISON: No relevant priors. FINDINGS: Normal soft tissue structures. Normal calvarium. Normal size ventricles and extra-axial spaces for the patient''s age. Normal white matter tracts of the cerebral hemispheres. Normal basal ganglia and thalami. Normal brainstem. Normal cerebellum. There is no intracranial hemorrhage. There are no findings of an acute ischemic infarction. Normal visualized paranasal sinuses. CT/Brain/Head without Contrast IMPRESSION: Normal unenhanced CT scan of the brain. Electronically Signed: Herman Abdalla MD at 12:09 EST ,
--- NOTE | 2023-07-01 10:33 | EDS_ITS ---
HPI History of Present Illness Chief Complaint: Numb/Ting Detail of Chief Complaint: Left hand weakness. Informant: patient Onset/Context/Timing Context: Gradual Onset Timing: Continuous Current Severity: Mild Maximum Severity: Mild Narrative Narrative: 52-year-old male known history of diabetes and left rotator cuff tear in which she is getting surgery next week. He also has cervical degenerative disc disease and a cervical fusion of his neck. He said he went through a big workup this past week for preop clearance for his rotator cuff surgery. Since around Tuesday he has developed weakness in his left hand. Said he had pain in his neck and his left elbow the neck pain is gone away but he now has some weakness in his left hand and numbness on the ulnar side. Denies any head injury or trauma. No trouble with his eyesight. No trouble with his speech. No trouble walking. No trouble moving his arms or legs. Prior similar symptoms: No Recent Illness/Hospitalization: No PFSH PFSH Medical History Alcohol abuse Anxiety Arthritis Cardiology follow-up encounter COVID CPAP (continuous positive airway pressure) dependence Depression Diabetes Essential hypertension GERD (gastroesophageal reflux disease) GI bleeding High cholesterol History of echocardiogram History of echocardiogram History of hiatal hernia History of IBS History of steroid therapy Hyperlipidemia Hypertension Leg cramps Non-smoker On home oxygen therapy Pneumonia due to 2019 novel coronavirus Psoriatic arthritis Right bundle branch block Sleep apnea Type 2 diabetes mellitus without complications Home Medications metformin 1,000 mg tablet 1,000 mg PO DAILY 30 days #60 tabs 05/22/18 [History Last Taken Unknown] triamcinolone acetonide 55 mcg nasal spray aerosol (Nasacort) 2 spray intranasal DAILY PRN rhinitis 12/07/18 [History Last Taken Unknown] gemfibrozil 600 mg tablet 600 mg PO BID #180 tabs 07/02/19 [Rx Last Taken Unknown] dapagliflozin propanediol 10 mg tablet (Farxiga) 10 mg PO DAILY 05/14/20 [History Last Taken Unknown] pseudoephedrine HCl 240 mg tablet,extended release 24 hr 240 mg PO DAILY PRN nasal congestion 05/14/20 [History Last Taken Unknown] nebulizer and compressor #1 ea 04/28/21 [Rx Last Taken Unknown] omeprazole 40 mg capsule,delayed release See Rx Instructions .Route .COMPLEX #60 caps 07/20/21 [Rx Last Taken Unknown] glimepiride 2 mg tablet 4 mg PO BID 05/24/22 [History Last Taken Unknown] pravastatin 20 mg tablet 20 mg PO DAILY #90 tabs 06/14/22 [Rx Last Taken U nknown] dicyclomine 20 mg tablet 20 mg PO 4X/DAY PRN PRN Abdominal bloating/spasm 7 days #28 tabs 09/03/22 [Rx Last Taken Unknown] diphenoxylate-atropine 2.5 mg-0.025 mg tablet (Lomotil) 1 tab PO 4X/DAY PRN PRN diarrhea 5 days #20 tabs 09/03/22 [Rx Last Taken Unknown] ondansetron 4 mg disintegrating tablet 4 mg PO TID PRN nausea and vomiting #21 tabs 09/03/22 [Rx Last Taken Unknown] oxycodone-acetaminophen 5 mg-325 mg tablet (Percocet) 1 tab PO Q6H PRN pain 3 days #12 tabs 09/03/22 [Rx Last Taken Unknown] amoxicillin 875 mg tablet 875 mg PO BID #10 tabs 11/29/22 [Rx Last Taken Unknown] insulin glargine 100 unit/mL (3 mL) subcutaneous pen (Lantus Solostar U-100 Insulin) 15 unit subcut QPM 11/29/22 [History Last Taken Unknown] losartan 25 mg tablet 25 mg PO DAILY #90 tabs 06/16/23 [Rx Last Taken Unknown] Allergy/AdvReac Type Severity Reaction Status Date / Time amoxicillin [From Augmentin] AdvReac Diarrhea Verified 11/29/22 14:04 clavulanic acid AdvReac Diarrhea Verified 11/29/22 14:04 [From Augmentin] Family History Father CAD (coronary artery disease) FROM [place] AGE 65 Mother Diabetes Surgical History History of penile implant (~09/2019) History of sinus surgery Hx of colonoscopy Hx of fusion of cervical spine Hx of left knee surgery Hx of tonsillectomy Social History Smoking Status: Never smoker alcohol intake: current substance use type: does not use ROS ROS ED ROS Narrative Denies recent illness. Review of Systems ROS Unobtainable: Denies due to encephalopathy Constitutional Constitutional ED: Denies chills or fever(s) Eyes Eyes: Denies blurry vision ENT ENT ED: Denies ear pain Cardiovascular Cardiovascular: Denies chest pain Respiratory/Chest Respiratory/Chest: Denies cough or dyspnea Gastrointestinal Gastrointestinal: Denies abdominal pain, constipation, diarrhea, melena or nausea Genitourinary Genitourinary ED: Denies dysuria or hematuria Musculoskeletal Musculoskeletal: Denies arthralgias, back pain or myalgias Integumentary Denies abscess or Abrasions Neurologic Neurologic: Denies headache(s) or paresthesias Psychiatric Psychiatric: Denies anxiety or depression Endocrine Endocrinology: Denies cold intolerance Hematologic/Lymphatic Hematologic/Lymphatic: Reports none; Denies lymphadenopathy Allergic/Immunologic Allergic/Immunologic ED: Denies mouth swelling, tongue swelling or urticaria EXAM Physical Exam Narrative Exam Narrative: 52-year-old male vital signs stable afebrile. No acute distress. Sitting upright in bed. HEENT exam unremarkable. Pupils round reactive light. No facial droop. Normal speech. Neck nontender no lymphadenopathy. No cervical tenderness. Lungs clear to auscultation bilaterally. Heart regular rhythm rate about 100 no murmur. Chest wall and ribs nontender. Abdomen soft nontender. Back nontender. Moving all 4 extremities. He has 5 out of 5 air conditioning coil assembler strength in both hands he is right-hand dominant his left hand is a little weaker than the right but he has good air conditioning coil assembler strength in both. He has normal radial pulses. He has normal flexion extension of both wrists and elbows. He has limited range of motion of the left shoulder due to the rotator cuff. Fingertip to nose and rapid movement of both hands is essentially equal. Dorsi and plantarflexion intact. [id number] within normal limits. Neurologic exam is awake alert. He has really no significant focal motor deficits other than slightly decreased strength left hand compared to the right but again he is right-hand dominant. In both hands are still 5-5 motor strength. Const Vital Signs: 07/01/23 09:56 Temperature 96.9 F L Temperature Source Temporal Pulse Rate 101 H Respiratory Rate 16 Blood Pressure 125/91 H Blood Pressure Mean 102 Pulse Ox 96 Oxygen Delivery Method Room Air Positive well nourished and well developed; Negative for cachectic, contractures or unkempt General Appearance ED: well developed and NAD; Negative for unkempt, cachectic, contractures, cyanotic, diaphoretic or pallor Nutritional Appearance: Negative for cachectic HEENT Reports moist mucous membranes; Denies TM's clear Negative for trauma or tenderness Tympanic Membrane ED: Negative for TM's clear Eyes PERRL and EOMs intact bilaterally General Eye ED: Negative for pale conjunctiva, scleral icterus or other Neck no lymphadenopathy, supple and no JVD General: Negative for tenderness Lymph Lymphatic: Negative for other Resp normal respiratory effort and clear to auscultation bilaterally Effort and Inspection: Negative for retractions or pain with movement Auscultation: Negative for rales, rhonchi or wheezes Cardio regular rate, regular rhythm, S1 normal heart sound, S2 normal heart sound and no murmurs Palpation: Negative for palpable S3 or palpable S4 Rate: Negative for bradycardia or tachycardic Rhythm: Negative for abnormal rhythm GI normal to inspection, nondistended, normoactive bowel sounds, non-tender, non- distended and no masses Inspection: Negative for abdominal distention Auscultation: normoactive bowel sounds Palpation: soft; Negative for tender, guarding or rebound tenderness present Back/Spine no CVA tenderness General Back: Negative for CVA tenderness Cervical Spine: Negative for cervical spine tenderness Thoracic Spine / Upper Back: Negative for thoracic spinal tenderness Lumbar Spine / Lower Back: Negative for lumbar spinal tenderness Extremity normal to inspection Extremity Narrative: Decreased range of motion left shoulder. Known rotator cuff tear. Drink left hand 5 out of 5 but less than the air conditioning coil assembler strength of the right hand. He is right- hand dominant. General Extremety ED: Negative for edema or tenderness General Extremity: Negative for edema Neuro oriented x3, CN's II-XII intact bilaterally and No no sensory deficits noted Neuro Narrative: Decreased sensation ulnar nerve distribution left forearm. Sensorium / Orientation: alert; Negative for orientation impaired, lethargic or stuporous Motor Exam: strength 5/5 throughout; Negative for general weakness Psych mental status grossly normal Appearance: Negative for unkempt Attitude: No agitated Mood & Affect: Negative for depressed, anxious or tearful Skin no rashes or lesions noted, no wounds and skin turgor normal General Skin Exam: elasticity normal; Negative for jaundice or pallor Lesions: No lesion noted Rashes: No rashes noted Trauma: Negative for abrasion Wounds: Negative for wounds noted MDM MDM MDM Narrative Medical decision making narrative: 52-year-old male weakness and numbness in the left hand which may be from a cervical disc or pinched nerve. He also has a known rotator cuff injury which she had a surgical repair next week. Due to his diabetes I will obtain a CT of his brain but my clinical suspicion for this being a stroke or mini stroke is extremely low. CT of the brain showed no acute abnormality. Repeat exam no significant change. I do think this is possibly secondary to nerve impingement from his cervical spine. Patient be discharged home. Outpatient follow-up. He is pending rotator cuff surgery this week. History & Record Review Discussion w/independent historian: Patient Additional record(s) reviewed:: Prior inpatient record, Prior outpatient record, Prior ED visit and Prior labs Radiography Diagnostic Testing: Clinical Impression(s) from Imaging Studies Brain CT 07/01/23 10:32 IMPRESSION: Normal unenhanced CT scan of the brain. Electronically Signed: Herman Abdalla MD at 12:[address] [facility] , Discharge Plan Triage Chief Complaint: Numb/Ting ED Provider: Uche Márquez Dx/Rx/DC Orders Clinical Impression: Hx of rotator cuff tear, Cervical disc disease, History of diabetes mellitus Instructions: ED Degenerative Disk Disease Prescriptions: No Action metformin 1,000 mg tablet 1,000 mg PO DAILY 30 Days Qty: 60 Patient Comments: triamcinolone acetonide [Nasacort] 55 mcg aerosol,spray 2 spray INTRANASAL DAILY PRN (Reason: rhinitis) Farxiga 10 mg tablet 10 mg PO DAILY gemfibrozil 600 mg tablet 600 mg PO BID Qty: 180 3RF glimepiride 2 mg tablet 4 mg PO BID Rx Instructions: administer with breakfast pseudoephedrine HCl 240 mg tablet extended release 24 hr 240 mg PO DAILY PRN (Reason: nasal congestion) Patient Comments: TAKE ONE TABLET BY MOUTH DAILY insulin glargine [Lantus Solostar U-100 Insulin] 100 unit/mL (3 mL) insulin pen 15 unit subcut QPM amoxicillin 875 mg tablet 875 mg PO BID Qty: 10 1RF (DME) nebulizer and compressor Device See Rx Instructions .ROUTE .MEDSUPPLY Qty: 1 0RF Rx Instructions: As directed dicyclomine 20 mg tablet 20 mg PO 4X/DAY PRN PRN (Reason: Abdominal bloating/spasm) 7 Days Qty: 28 0RF ondansetron 4 mg tablet,disintegrating 4 mg PO TID PRN (Reason: nausea and vomiting) Qty: 21 0RF diphenoxylate-atropine [Lomotil] 2.5-0.025 mg tablet 1 tab PO 4X/DAY PRN PRN (Reason: diarrhea) 5 Days Qty: 20 0RF oxycodone-acetaminophen [Percocet] 5-325 mg tablet 1 tab PO Q6H PRN (Reason: pain) 3 Days Qty: 12 0RF omeprazole 40 mg capsule,delayed release(DR/EC) See Rx Instructions .ROUTE .COMPLEX Qty: 60 0RF Dose Instruction: TAKE 1CAPSULE 2TIMES DAILY FOR 8WEEKS THEN DECREASE TO ONCE DAILY FOR 8WEEKS THEN STOP Rx Instructions: TAKE 1CAPSULE 2TIMES DAILY FOR 8WEEKS THEN DECREASE TO ONCE DAILY FOR 8WEEKS THEN STOP pravastatin 20 mg tablet 20 mg PO DAILY Qty: 90 3RF losartan 25 mg tablet 25 mg PO DAILY Qty: 90 3RF Primary Care Provider: Casey Valles Referrals: Casey Valles MD [Primary Care Provider] - As Needed Activity Restrictions/Additional Instructions: Motrin for pain and inflammation. Obviously need to stop that 5 days prior to surgery. Follow-up with your primary care physician or orthopedic physician if this is not improving. Disposition Disposition: Home, Self Care
[2023-07-01 11:55] VITALS: BP 128/76; PULSE 64; RESP 14; TEMP 36.1; O2SAT 99
== END 2023-07-01 12:42 | disposition home or self-care (01) ==
PROVIDERS: Emergency Provider Emergency Medicine; PCP Family Medicine; Visit Provider Emergency Medicine
DX: M50.30 Other cervical disc degeneration, unspecified cervical region (principal); E11.9 Type 2 diabetes mellitus without complications; R29.898 Other symptoms and signs involving the musculoskeletal system; E78.5 Hyperlipidemia, unspecified; I10 Essential (primary) hypertension; Z86.16 Personal history of COVID-19; K21.9 Gastro-esophageal reflux disease without esophagitis
CPT/HCPCS: 70450; 99282

== ENCOUNTER 2023-08-30 16:00 | Outpatient (RCR) | payer OTHER, SELFPAY | END 2023-09-08 23:59 | LOC: NS 16:00 | PROVIDERS: PCP Family Medicine; Referring Provider Family Medicine; Visit Provider Family Medicine | DX: Z71.3 Dietary counseling and surveillance (principal); E11.9 Type 2 diabetes mellitus without complications | CPT/HCPCS: 97802; 97803 ==

== ENCOUNTER → 2024-01-19 | Outpatient (CLI) | payer OTHER, SELFPAY ==
--- NOTE | 2024-01-19 13:35 | RAD_ITS ---
EXAM: XR CERVICAL SPINE, 4 OR 5 VIEWS CLINICAL INDICATION: Arthrodesis status TECHNIQUE: Frontal, lateral and bilateral oblique views of the cervical spine. COMPARISON: No relevant prior studies available. FINDINGS: VERTEBRAE: There is a plate and screws from an anterior fusion of C5-C7. There is hardware from posterior fusion of C3-C7. Preserved vertebral body height. No acute fracture. No spondylolisthesis. Preservation of the normal cervical lordosis. No significant facet arthropathy. DISC SPACES: See above. SOFT TISSUES: Unremarkable. No prevertebral soft tissue widening. LUNG APICES: Clear. RAD/Cerv Spine 2 or 3 Views IMPRESSION: Anterior and posterior fusion of the cervical spine. Hardware is in good position. There is no acute osseous abnormality. Electronically Signed: Clarence Shankar MD at 23:58 EDT ,
== END | disposition home or self-care (01) ==
PROVIDERS: PCP Family Medicine
DX: Z98.1 Arthrodesis status (principal)
CPT/HCPCS: 72040

== ENCOUNTER → 2024-06-28 | Outpatient (CLI) | payer OTHER, SELFPAY ==
--- NOTE | 2024-06-28 16:04 | RAD_ITS ---
EXAM: XR ABDOMEN, 1 VIEW CLINICAL INDICATION: ABD PAIN TECHNIQUE: Frontal supine view of the abdomen/pelvis. COMPARISON: No relevant prior studies available. FINDINGS: LOWER THORAX: No acute pathology. GASTROINTESTINAL TRACT: Unremarkable. Non-obstructive. No bowel or stomach distention. ORGANS: Unremarkable as visualized. No organomegaly. No abnormal calcifications. BONES/JOINTS: No acute pathology. SOFT TISSUES: No acute pathology. RAD/Abdomen Single View IMPRESSION: Non-obstructive bowel gas pattern. Electronically Signed: Clarence Shankar MD at 23:52 EST ,
[2024-06-28 17:37] LABS: Absolute Lymphocyte Count 1.82 X10^3/uL (0.83-4.51); Absolute Neutrophil Count 3.1 X10^3/uL (2.0-7.7); Basophil# 0.04 X10^3/uL; Basophil% 0.7 % (0-1); Eosinophil# 0.13 X10^3/uL; Eosinophils% 2.3 % (0-5); Hematocrit 48.4 % (40-54); Hemoglobin 15.4 g/dL (13.0-16.5); Lymphocyte # 1.82 X10^3/ul (0.83-4.51); Lymphocyte % 31.7 % (19-41); Mean Corp Hgb Conc 31.8 g/dL (32-36); Mean Corpuscular Hgb 32.3 pg (27.0-32.0); Mean Corpuscular Volume 101.5 fL (80-94); Mean Platelet Vol. 9.8 fl (6.2-12.0); Monocyte# 0.63 X10^3/uL; NRBC Flagged by Analyzer 0 % (0-5); Neutrophil # 3.11 X10^3/uL (2.7-7.7); Platelet Count 277 K/mm3 (150-450); RBC Distribution Width CV 12.6 % (11.6-14.6); RBC Distribution Width SD 47.4 fl (35.1-43.9); Red Blood Count 4.77 M/mm3 (4.6-6.2); White Blood Count 5.8 K/mm3 (4.4-11.0)
[2024-06-28 17:52] LABS: ALB/GLOB Ratio 1.1 RATIO (0.9-2.4); AST(SGOT) 15 U/L (15-37); Alanine Aminotransfer ALT/SGPT 25 U/L (16-61); Albumin, Serum 4.3 g/dL (3.2-5.0); Alkaline Phosphatase 82 U/L (45-117); Anion Gap 3 (5-15); BUN 12 mg/dL (7-18); Calcium,Total 9.4 mg/dL (8.5-10.1); Chloride 105 mmol/L (98-107); EST Glomerular Filtration Rate 82 mL/min (>60); Est Glom Filt Rate - Afr Amer 100 mL/min (>60); Globulin 3.9 g/dL (2.2-4.2); Glucose 105 mg/dL (74-106); Lipase 117 U/L (13-75); Potassium 3.4 mmol/L (3.5-5.1); Protein, Total 8.2 g/dL (6.4-8.2); Sodium Level 139 mmol/L (136-145)
== END | disposition home or self-care (01) ==
PROVIDERS: PCP Family Medicine; Referring Provider Family Medicine; Visit Provider Family Medicine
DX: R10.9 Unspecified abdominal pain (principal)
CPT/HCPCS: 36415; 74018; 80053; 83690; 85025

== ENCOUNTER 2024-06-29 12:37 | Emergency (ER) | payer OTHER, SELFPAY ==
[2024-06-29 12:37] VITALS: BP 114/85; PULSE 82; RESP 14; TEMP 36.2; O2SAT 97; BMI 27.7
--- NOTE | 2024-06-29 12:46 | ED.RN ---
Dr. Fitzgerald bedside
--- NOTE | 2024-06-29 12:56 | EDS_ITS ---
HPI HPI - GI History of Present Illness Chief Complaint: Abd Pain Informant: patient Abdominal Pain/Flank Pain Onset: Weeks (2) Context: Gradual Onset Timing: Intermittent Quality: Aching and Cramping Location: Epigastric and LUQ Worsened by: Food Relieved by: Nothing Nausea/Vomiting/Emesis GI Symptom: Negative for Nausea or Vomiting Diarrhea/Melena/Hematochezia GI Symptom: Negative for Diarrhea, Melena or Hematochezia Stool Quality: Positive for Loose Associated Symptoms Associated Symptoms: Positive for Frequency; Negative for Dysuria or Hematuria Narrative Narrative: Patient presents with abdominal pain that has been intermittent over the last 2 weeks. Patient states he saw his primary care physician yesterday and had lab work drawn. Patient states that his primary care physician's office called him today and told him to come to the emergency department for an elevated lipase. Patient states his pain is over the epigastric and left mid abdomen. Patient describes it as cramping and aching. Patient also states he feels bloated at times. Patient states his pain is worse with eating. Patient states nothing seems to help with it. Patient denies any nausea or vomiting. Patient denies any diarrhea, melena, or hematochezia. Patient states that sometimes his stools are loose but not watery or runny. Patient admits to some urinary frequency but denies any dysuria or hematuria. Patient denies any fevers or chills. [facility] Medical History Essential hypertension Depression Anxiety History of steroid therapy Diabetes Arthritis High cholesterol History of hiatal hernia History of IBS Non-smoker On home oxygen therapy Leg cramps History of echocardiogram History of echocardiogram Cardiology follow-up encounter GI bleeding COVID Alcohol abuse GERD (gastroesophageal reflux disease) CPAP (continuous positive airway pressure) dependence Sleep apnea Pneumonia due to 2019 novel coronavirus Psoriatic arthritis Right bundle branch block Hypertension Hyperlipidemia Type 2 diabetes mellitus without complications Home Medications ?Medication ?Instructions ?Recorded ?Last Taken ?Type metformin 1,000 mg tablet 1,000 mg PO DAILY 30 days #60 tabs 05/22/18 Unknown History triamcinolone acetonide 55 mcg 2 spray intranasal DAILY PRN 12/07/18 Unknown History nasal spray aerosol (Nasacort) rhinitis gemfibrozil 600 mg tablet 600 mg PO BID #180 tabs 07/02/19 Unknown Rx dapagliflozin propanediol 10 mg 10 mg PO DAILY 05/14/20 Unknown History tablet (Farxiga) nebulizer and compressor #1 ea 04/28/21 Unknown Rx glimepiride 4 mg tablet 4 mg PO BID 08/08/23 Unknown History omeprazole 40 mg capsule,delayed 40 mg PO DAILY 08/08/23 Unknown History release pravastatin 40 mg tablet 40 mg PO DAILY 08/08/23 Unknown History tizanidine 4 mg tablet 4 mg PO TID 04/04/24 Unknown History losartan 25 mg tablet 25 mg PO DAILY #90 tabs 06/11/24 Unknown Rx dulaglutide 3 mg/0.5 mL mg subcut 06/29/24 Unknown History subcutaneous pen injector (Trulicity) Allergy/AdvReac Type Severity Reaction Status Date / Time amoxicillin (From Augmentin) AdvReac Diarrhea Verified 06/29/24 12:38 clavulanic acid (From AdvReac Diarrhea Verified 06/29/24 12:38 Augmentin) Family History Father CAD (coronary artery disease) FROM [place] AGE 65 Mother Diabetes Surgical History Hx of colonoscopy Hx of left knee surgery Hx of tonsillectomy Hx of fusion of cervical spine History of penile implant (~09/2019) History of sinus surgery Social History Smoking Status: Never smoker alcohol intake: current alcohol intake frequency: a few times a week substance use type: does not use caffeine: Yes Type: coffee Number of servings: 4 ROS ROS ED Constitutional Constitutional ED: Denies chills or fever(s) Eyes Eyes: Denies blurry vision or change in vision ENT ENT ED: Reports rhinorrhea and sore throat Cardiovascular Cardiovascular: Denies chest pain or palpitations Respiratory/Chest Respiratory/Chest: Reports dyspnea; Denies cough Gastrointestinal Gastrointestinal: Reports abdominal pain; Denies nausea or vomiting Genitourinary Genitourinary ED: Denies dysuria or hematuria Musculoskeletal Musculoskeletal: Reports neck pain; Denies back pain Integumentary Denies abscess or rash Neurologic Neurologic: Reports headache(s); Denies weakness Allergic/Immunologic Allergic/Immunologic ED: Denies mouth swelling or urticaria EXAM Physical Exam Const Vital Signs: 06/29/24 12:37 Temperature 97.1 F L Temperature Source Temporal Pulse Rate 82 Respiratory Rate 14 Blood Pressure 114/85 H Blood Pressure Mean 94 Pulse Ox 97 Oxygen Delivery Method Room Air Positive well nourished and well developed General Appearance ED: well developed and NAD HEENT Reports moist mucous membranes Neck supple and no JVD Resp normal respiratory effort and clear to auscultation bilaterally Cardio regular rate and regular rhythm GI non-distended Palpation: soft and tender epigastric, LUQ and periumbilical; Negative for guarding or rebound tenderness present Extremity full ROM General Extremety ED: Negative for edema or tenderness General Extremity: Negative for edema Neuro CN's II-XII intact bilaterally, moves all extremities and no sensory deficits noted Sensorium / Orientation: alert Motor Exam: strength 5/5 throughout Psych mental status grossly normal and thought process normal MDM MDM MDM Narrative Medical decision making narrative: Differential diagnosis includes pancreatitis, bowel obstruction, perforation, diabetes, electrolyte abnormality, gastroenteritis, diverticulitis, colitis, cholecystitis, cholelithiasis, and electrolyte abnormality. CBC will be obtained to assess for leukocytosis and anemia. Comprehensive metabolic profile will be obtained to assess for hepatic function, renal function, and electrolyte abnormality. Lipase will be obtained to assess for pancreatitis. Urinalysis will be obtained to assess for urinary tract infection and hematuria. CT scan of the abdomen and pelvis will be obtained to assess for pancreatitis, colitis, diverticulitis, bowel obstruction, and perforation. Lab Data Attestation: I reviewed the patient's lab results. Lab results narrative: CBC was reviewed and was within normal limits. Comprehensive metabolic profile was reviewed and was essentially within normal limits. Lipase was reviewed and was normal at 61. Urinalysis was reviewed. There is no evidence of urinary tract infection or hematuria. There is glucosuria of 1000. Labs: Laboratory Results - last 24 hr 06/29/24 06/29/24 13:09 13:14 WBC 6.6 RBC 4.69 Hgb 15.4 Hct 46.2 MCV 98.5 H MCH 32.8 H MCHC 33.3 RDW Std Deviation 45.9 H RDW Coeff of Hernán 12.7 Plt Count 259 MPV 9.7 Immature Gran % (Auto) 0.600 Neut % (Auto) 65.2 Lymph % (Auto) 23.1 [place] % (Auto) 9.3 Eos % (Auto) 1.2 Baso % (Auto) 0.6 Absolute Neuts (auto) 4.3 Absolute Lymphs (auto) 1.52 Nucleated RBC % 0 Sodium 140 Potassium 3.8 Chloride 107 Carbon Dioxide 26.0 Anion Gap 7 BUN 13 Creatinine 0.94 Estim Creat Clear Calc 93.14 Est GFR (MDRD) Af Amer 108 Est GFR (MDRD) Non-Af 89 BUN/Creatinine Ratio 13.9 Glucose 123 H Calcium 9.2 Total Bilirubin 0.80 AST 15 ALT 23 Alkaline Phosphatase 83 Total Protein 7.9 Albumin 4.1 Globulin 3.8 Albumin/Globulin Ratio 1.1 Lipase 61 Urine Color Yellow Urine Clarity Clear Urine pH 6.0 Ur Specific [place] 1.010 Urine Protein 15 H Urine Glucose (UA) 1000 H Urine Ketones Negative Urine Occult Blood Negative Urine Nitrite Negative Urine Bilirubin Negative Urine Urobilinogen Normal Ur Leukocyte Esterase Negative Radiography Diagnostic Testing: Clinical Impression(s) from Imaging Studies Abdomen/Pelvis CT 06/29/24 13:02 IMPRESSION: Fatty infiltration of the liver. Sigmoid diverticulosis. Electronically Signed: Herman Abdalla MD at 13:36 EST , CT scan of the abdomen pelvis was obtained. There is fatty infiltration of the liver. There is diverticulosis but no evidence of diverticulitis. There is no free air or free fluid. This was interpreted by the radiologist and was also independently reviewed by myself. Treatment and Re-Evaluation :: Patient was given IV fluids. Patient was feeling better on reevaluation. Patient was advised of his findings. Patient was instructed to start with a liquid diet and advance to a bland diet and then to a regular diet as he feels better. Patient was instructed to follow-up with his primary care physician in 5 to 7 days. Patient was instructed to return if worse in any way. Patient understood and was agreeable with the plan. All questions were answered. Discharge Plan Triage Chief Complaint: Abd Pain ED Provider: David Fitzgerald Dx/Rx/DC Orders Clinical Impression: Abdominal pain, Type 2 diabetes mellitus without complications Instructions: ED Abdominal Pain Unkn Cause Male... Prescriptions: No Action metformin 1,000 mg tablet 1,000 mg PO DAILY 30 Days Qty: 60 Patient Comments: triamcinolone acetonide [Nasacort] 55 mcg aerosol,spray 2 spray INTRANASAL DAILY PRN (Reason: rhinitis) Farxiga 10 mg tablet 10 mg PO DAILY gemfibrozil 600 mg tablet 600 mg PO BID Qty: 180 3RF glimepiride 4 mg tablet 4 mg PO BID Patient Comments: TAKE 1 TABLET BY MOUTH TWICE A DAY pravastatin 40 mg tablet 40 mg PO DAILY Patient Comments: TAKE 1 TABLET BY MOUTH EVERY DAY omeprazole 40 mg capsule,delayed release(DR/EC) 40 mg PO DAILY tizanidine 4 mg tablet 4 mg PO TID (DME) nebulizer and compressor Device See Rx Instructions .ROUTE .MEDSUPPLY Qty: 1 0RF Rx Instructions: As directed Trulicity 3 mg/0.5 mL pen injector subcut losartan 25 mg tablet 25 mg PO DAILY Qty: 90 3RF Primary Care Provider: Casey Valles Referrals: Casey Valles MD [Primary Care Provider] - 5-7 Days Print Language: New Zealander Disposition Disposition: Home, Self Care
--- NOTE | 2024-06-29 13:02 | CT_ITS ---
STUDY: CT ABDOMEN AND PELVIS WITH CONTRAST REASON FOR EXAM: Male, 53 years old. Abdominal pain RADIATION DOSAGE (If Supplied By Facility): CTDIvol = ( 15.34 ) mGy, DLP = ( 948.70 ) mGycm TECHNIQUE: Transaxial images were obtained from the dome of the diaphragm to the symphysis pubis without oral contrast. IV 100mL Isovue-300 was administered. Sagittal and coronal images were reconstructed. Individualized dose optimization techniques were used for this CT. COMPARISON: Comparison is made with prior study April 27, 2021. FINDINGS: Calcified granuloma in the left lower lobe. Mild residual increased markings at the lung bases although there is been almost complete resolution of the previously seen basilar infiltrates. Coronary artery calcification. There is decreased attenuation of the liver consistent with steatosis. Normal gallbladder and extrahepatic biliary system. Normal spleen. Normal pancreas. Normal bilateral adrenal glands. Normal right kidney. Normal left kidney. Normal visualized stomach. Normal small intestine. There are scattered colonic diverticula consistent with diverticulosis. The appendix is visualized and appears normal. Normal abdominal aorta. Normal inferior vena cava. Normal retroperitoneum. Normal urinary bladder. Once again, penile urethral implant and reservoir noted. Normal abdominal wall. Disc space narrowing at the L5-S1 level with subchondral sclerosis and minimal anterolisthesis of L5 on S1 due to spondylolysis of the pars interarticularis of the L5 vertebrae. CT/Abdomen/Pelvis W IV Cont ONLY IMPRESSION: Fatty infiltration of the liver. Sigmoid diverticulosis. Electronically Signed: Herman Abdalla MD at 13:36 EST ,
[2024-06-29 13:21] LABS: Bacteria 0 SEEN /hpf (None Seen); Mucous, Urine 0 SEEN /hpf (<or=2+); Red Blood Cells-Urine 0 SEEN /hpf (0-5); Squamous Epithelial Cells - UA 0 SEEN /hpf (0-5); White Blood Cells 0 SEEN /hpf (0-5)
[2024-06-29 13:21] LABS: Absolute Lymphocyte Count 1.52 X10^3/uL (0.83-4.51); Absolute Neutrophil Count 4.3 X10^3/uL (2.0-7.7); Basophil# 0.04 X10^3/uL; Basophil% 0.6 % (0-1); Eosinophil# 0.08 X10^3/uL; Eosinophils% 1.2 % (0-5); Hematocrit 46.2 % (40-54); Hemoglobin 15.4 g/dL (13.0-16.5); Lymphocyte # 1.52 X10^3/ul (0.83-4.51); Lymphocyte % 23.1 % (19-41); Mean Corp Hgb Conc 33.3 g/dL (32-36); Mean Corpuscular Hgb 32.8 pg (27.0-32.0); Mean Corpuscular Volume 98.5 fL (80-94); Mean Platelet Vol. 9.7 fl (6.2-12.0); Monocyte# 0.61 X10^3/uL; Monocyte% 9.3 % (0-10); NRBC Flagged by Analyzer 0 % (0-5); Neutrophil % 65.2 % (47-70); Platelet Count 259 K/mm3 (150-450); RBC Distribution Width CV 12.7 % (11.6-14.6); RBC Distribution Width SD 45.9 fl (35.1-43.9); Red Blood Count 4.69 M/mm3 (4.6-6.2); White Blood Count 6.6 K/mm3 (4.4-11.0)
[2024-06-29] MEDS: 0.9% Normal Saline (1000mL) 1,000 ML 999 ML IV (13:32)
[2024-06-29 13:34] LABS: ALB/GLOB Ratio 1.1 RATIO (0.9-2.4); AST(SGOT) 15 U/L (15-37); Alanine Aminotransfer ALT/SGPT 23 U/L (16-61); Albumin, Serum 4.1 g/dL (3.2-5.0); Alkaline Phosphatase 83 U/L (45-117); Anion Gap 7 (5-15); BUN 13 mg/dL (7-18); BUN/Creat Ratio 13.9 RATIO (10-20); Calcium,Total 9.2 mg/dL (8.5-10.1); Chloride 107 mmol/L (98-107); Creatinine, Serum 0.94 mg/dL (0.70-1.30); EST Glomerular Filtration Rate 89 mL/min (>60); Est Glom Filt Rate - Afr Amer 108 mL/min (>60); Estimated Creatinine Clearance 93.14 ml/min; Globulin 3.8 g/dL (2.2-4.2); Glucose 123 mg/dL (74-106); Lipase 61 U/L (13-75); Potassium 3.8 mmol/L (3.5-5.1); Protein, Total 7.9 g/dL (6.4-8.2); Sodium Level 140 mmol/L (136-145)
[2024-06-29 13:49] LABS: Color, Urine Yellow (Yellow); Glucose, Dipstick 1000 mg/dl (Normal); Ketone-Dipstick Negative (Negative); Leukocyte Esterase-Dipstick Negative /ul (Negative); Nitrite-Dipstick Negative (Negative); Occult Blood-Urine Negative /ul (Negative); Protein-Dipstick 15 mg/dl (Negative); Urine Bilirubin Dipstick Negative (Negative); Urine Clarity Clear (Clear); Urine Urobilinogen Normal (Normal)
[2024-06-29 14:10] VITALS: BP 114/85; PULSE 82; RESP 14; TEMP 36.2; O2SAT 97
== END 2024-06-29 14:34 | disposition home or self-care (01) ==
PROVIDERS: Emergency Provider Emergency Medicine; PCP Family Medicine; Visit Provider Emergency Medicine
DX: R10.9 Unspecified abdominal pain (principal); E11.9 Type 2 diabetes mellitus without complications; R35.0 Frequency of micturition; E78.5 Hyperlipidemia, unspecified; I10 Essential (primary) hypertension; Z86.16 Personal history of COVID-19; Z99.89 Dependence on other enabling machines and devices; G47.30 Sleep apnea, unspecified; Z98.1 Arthrodesis status; R06.00 Dyspnea, unspecified; M54.2 Cervicalgia; K76.0 Fatty (change of) liver, not elsewhere classified; K57.30 Diverticulosis of large intestine without perforation or abscess without bleeding; K21.9 Gastro-esophageal reflux disease without esophagitis
CPT/HCPCS: 74177; 80053; 81001; 83690; 85025; 99283; Q9967; A4216

== ENCOUNTER 2024-08-01 13:32 | Day surgery (SDC) | payer OTHER, SELFPAY ==
[2024-08-01] VITALS (9 sets, daily range): BP systolic 117–131; BP diastolic 90–106; PULSE 74–81; RESP 16–20; TEMP 36.2–36.7; O2SAT 94–97; BMI 27.9
--- NOTE | 2024-08-01 14:01 | PCM.HP.STD ---
HPI - General General Date of Admission: 08/01/24 Date of Service: 08/01/24 Chief Complaint: Abdominal pain HPI Narrative DUARTE MARRERO, is a 53 M who presents to evaluate his ongoing abdominal pain. CT 06/29/2024 Fatty infiltration of the liver. Sigmoid diverticulosis. 05/31/2021 Colonoscopy (recall 5 years) 06/28/2025 Lipase 117 06/29/2024 Lipase 61 - transaminases normal - was upper abdomen, now having lower mid abdominal pain - c/o bloating after eating - stools are erratic - nothing or hard - he has a BM most days - he is diabetic - nausea, denies any emesis - frequent belching - this helps relieve the bloating - Trulicity was increased April 2024 EGD LA Grade A (one or more mucosal breaks less than 5 mm, not extending between tops of 2 mucosal folds) esophagitis with no bleeding was found 34 to 35 cm from the incisors. Biopsies were taken with a cold forceps for histology. Multiple 5 mm [pedicle] polyps with no stigmata of recent bleeding were found in the gastric fundus. The second portion of the duodenum was normal. - symptoms ongoing for 6 weeks - then when to ER on 06/29/2024 - started on dicyclomine by PCP - this helped - EtOH - more so on the weekends - 2-3 shots a day, x4-5 years - reports a history of heavy alcohol use - prior to shots he was drinking 8-10 beers a day - occasional beer intake - complains of [place] burps - NSAIDS - none - Caffeine - 2 cups a day - he is a non-smoker - denies any family h/o GB disease - he is using dicyclomine as needed - still has discomfort and bloating [facility] Medical History Hemorrhoid IBS (irritable bowel syndrome) Hypogonadism Essential hypertension Depression Anxiety History of steroid therapy Diabetes Arthritis High cholesterol History of hiatal hernia History of IBS Non-smoker On home oxygen therapy Leg cramps History of echocardiogram History of echocardiogram Cardiology follow-up encounter GI bleeding COVID Alcohol abuse GERD (gastroesophageal reflux disease) CPAP (continuous positive airway pressure) dependence Sleep apnea Pneumonia due to 2019 novel coronavirus Psoriatic arthritis Right bundle branch block Hypertension Hyperlipidemia Type 2 diabetes mellitus without complications Home Medications ?Medication ?Instructions ?Recorded ?Last Taken ?Type metformin 1,000 mg tablet 1,000 mg PO DAILY 30 days #60 tabs 05/22/18 07/31/24 History triamcinolone acetonide 55 mcg 2 spray intranasal DAILY PRN 12/07/18 Unknown History nasal spray aerosol (Nasacort) rhinitis gemfibrozil 600 mg tablet 600 mg PO BID #180 tabs 07/02/19 Unknown Rx dapagliflozin propanediol 10 mg 10 mg PO DAILY 05/14/20 Unknown History tablet (Farxiga) glimepiride 4 mg tablet 4 mg PO BID 08/08/23 Unknown History pravastatin 40 mg tablet 40 mg PO DAILY 08/08/23 07/31/24 History tizanidine 4 mg tablet 4 mg PO TID 04/04/24 Unknown History losartan 25 mg tablet 25 mg PO DAILY #90 tabs 06/11/24 Unknown Rx dicyclomine 20 mg tablet 20 mg PO BID 07/30/24 07/25/24 History dulaglutide 3 mg/0.5 mL 3 mg subcut 3XW 07/30/24 07/29/24 History subcutaneous pen injector (Trulicity) gabapentin 300 mg capsule 300 mg PO TID 07/30/24 Unknown History omeprazole 40 mg capsule,delayed 40 mg PO BID #60 caps 07/31/24 07/31/24 Rx release Allergy/AdvReac Type Severity Reaction Status Date / Time pollen extracts (pollens) Allergy Mild Other Verified 08/01/24 13:54 amoxicillin (From Augmentin) AdvReac Diarrhea Verified 08/01/24 13:54 clavulanic acid (From AdvReac Diarrhea Verified 08/01/24 13:54 Augmentin) Family History Father CAD (coronary artery disease) FROM [place] AGE 65 Mother Diabetes Surgical History Hx of colonoscopy Hx of left knee surgery Hx of tonsillectomy Hx of fusion of cervical spine History of penile implant (~09/2019) History of sinus surgery Social History household members: spouse and children current occupational status: employed current occupation: [employer] leisure activities: other Smoking Status: Never smoker alcohol intake: never substance use type: does not use caffeine: Yes Type: coffee Number of servings: 4 what type of physical activity do you participate in: bicycling ROS Constitutional Constitutional: Denies fatigue, fever(s), poor appetite, weight gain or weight loss Gastrointestinal Gastrointestinal: Denies belching, bloating, change in bowel habits, change in stool character, chewing difficulty, coffee ground emesis, constipation, cramping, diarrhea, dyspepsia, dysphagia, early satiety, excessive flatus, fecal incontinence, heartburn, hematemesis, hematochezia, hemorrhoids, loose stools, melena, nausea, odynophagia, rectal bleeding, tenesmus, vomiting or weight changes Physical Exam Narrative GENERAL: Appears fatigued HEENT: Atraumatic; EYES; Anicteric, Normal Conjunctiva NECK; supple, normal thyroid, RESPIRATORY: Diminished to auscultation CARDIOVASCULAR: Regular S1 S2, GI: soft, normoactive bowel sounds, : No Renal angle tenderness; EXTREMITIES: No edema, no clubbing, MUSCULOSKELETAL: no muscle waisting NEURO: Awake; no lateralizing signs. SKIN: No Rash PSYCH; Flat affect Assessment & Plan Assessment/Plan (1) Belching: (2) Bloating: (3) Nausea: (4) Abdominal pain: QUALIFIERS: Abdominal location: epigastric Qualified Code(s): R10.13 - Epigastric pain PLAN: Plan Assessment and Plan Assessment and Plan (1) Abdominal pain: Status: Acute Qualifiers: Abdominal location: epigastric Qualified Code(s): R10.13 - Epigastric pain (2) Nausea: Status: Acute (3) GERD (gastroesophageal reflux disease): Status: Acute Qualifiers: Esophagitis presence: esophagitis presence not specified Qualified Code(s): K21.9 - Gastro-esophageal reflux disease without esophagitis Comment: NOT WELL CONTROLLED (4) Bloating: Status: Acute (5) Belching: Status: Acute Orders:
--- NOTE | 2024-08-01 14:18 | PCM.PRE.AN2 ---
ASA Classification* ASA Classification ASA Classification: 3 Assessment & Plan Anesthesia* Anesthesia Assessment Anesthesia Assessment: Discussed sedation and/or anesthesia options, risks, benefits, and alternatives with patient/parents/legal guardian/POA. Questions invited. The patient/parents/legal guardian/POA seems to understand and agrees to proceed with anesthesia plan. Reviewed the physical assessment, medical history, allergy history and patient home medications list prior to surgery/procedure/anesthetic and documented any changes. Performed airway and anesthesia risk assessments. Anesthesia Type Anesthesia Type: MAC History Source History Obtained from:: Patient and Chart Anesthesia Focused Assessment* Temperature: 98.1 F Pulse Rate: 74 Blood Pressure: 129/97 Respiratory Rate: 16 Pulse Ox: 97 Oxygen Delivery Method: Room Air Airway Assessment Mouth opens: >3 cm Mallampati Score: II Neck Range of motion (ROM): Full ROM Focused Labs Anesthesia Preop lab: CBC WBC 6.6 K/mm3 (4.4-11.0) 06/29/24 13:09 RBC 4.69 M/mm3 (4.6-6.2) 06/29/24 13:09 Hgb 15.4 g/dL (13.0-16.5) 06/29/24 13:09 Hct 46.2 % (40-54) 06/29/24 13:09 Plt Count 259 K/mm3 (150-450) 06/29/24 13:09 CHEMISTRY Potassium 3.8 mmol/L (3.5-5.1) 06/29/24 13:09 Sodium 140 mmol/L (136-145) 06/29/24 13:09 Magnesium 2.0 mg/dL (1.6-2.6) 09/02/22 23:09 BUN 13 mg/dL (7-18) 06/29/24 13:09 Creatinine 0.94 mg/dL (0.70-1.30) 06/29/24 13:09 Glucose 123 mg/dL (74-106) H 06/29/24 13:09 POC Glucose 183 mg/dL (70-110) H 06/09/21 11:27 TSH 1.18 uIU/mL (0.358-3.74) 11/26/20 14:29 COAG Pre-Assessment Diagnosis/Proposed Procedure Planned Operative Procedure(s): EGD Anesthesia History 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 When Was Last Pacemaker Check QUESTION #4 FULL TEXT: You/Your Family Experience fever (hyperthermia) with Anesthesia Last Oral Intake Last Oral intake: Last Oral Intake NPO since 11:30 08/01/24 14:02 Meds taken in AM with sips of water? Meds patient instructed to take am of surgery PONV PONV - homeowner association manager: PONV - homeowner association manager Female No 08/01/24 14:02 HX of Motion Sickness No 08/01/24 14:02 HX of N/V After Surgery No 08/01/24 14:02 Non-Smoker Yes 08/01/24 14:02 Duration of Surgery greater No 08/01/24 14:02 than 60 minutes Number of Risk Factors 1 08/01/24 14:02 PONV Score Low Risk 08/01/24 14:02 Height & Weight Height & Weight: Anesthesia: Height & Weight Height 5 ft 8 in 08/01/24 14:02 Weight: 83.461 kg 08/01/24 14:02 Body Mass Index (BMI) 27.9 08/01/24 14:02 Respiratory Assessment Respiratory Assessment - homeowner association manager: Respiratory Tract Infection Hx - homeowner association manager Hx Respiratory Tract Infection No 08/01/24 14:02 STOP Sleep Apnea STOP Sleep Apnea - homeowner association manager: STOP Sleep Apnea - homeowner association manager Hx Hypertension Yes 08/01/24 14:02 Hx Sleep Apnea Yes 08/01/24 14:02 CPAP Yes 08/01/24 14:02 BIPAP No 08/01/24 14:02 Do you snore loudly (louder than talking or can be heard Do you often feel tired/ fatigued/ sleepy during daytime? Has anyone observed you stop breathing during sleep? STOP Results Positive 08/01/24 14:02 QUESTION #5 FULL TEXT : Do you snore loudly (louder than talking or can be heard through closed doors)? 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 Specify any problems Hx of Preganancy in last 3 N/A 08/01/24 14:02 Months Nurse Filling Out Transfusion DONAVANAPOLENRIQUE 08/01/24 14:02 & Questions: Date: 08/01/24 08/01/24 14:02 Time: 14:04 08/01/24 14:02 Patient unable to answer at this time (ie. confused, unrespo /Reproduction History /Reproductive History - homeowner association manager: /Reproductive Hx- homeowner association manager Hx Now Gestational Age (in weeks): EDC: Hx Hx Para Hx Section SAB No 06/02/21 15:22 PFSH Medical History Hemorrhoid IBS (irritable bowel syndrome) Hypogonadism Essential hypertension Depression Anxiety History of steroid therapy Diabetes Arthritis High cholesterol History of hiatal hernia History of IBS Non-smoker On home oxygen therapy Leg cramps History of echocardiogram History of echocardiogram Cardiology follow-up encounter GI bleeding COVID Alcohol abuse GERD (gastroesophageal reflux disease) CPAP (continuous positive airway pressure) dependence Sleep apnea Pneumonia due to 2019 novel coronavirus Psoriatic arthritis Right bundle branch block Hypertension Hyperlipidemia Type 2 diabetes mellitus without complications Home Medications ?Medication ?Instructions ?Recorded ?Last Taken ?Type metformin 1,000 mg tablet 1,000 mg PO DAILY 30 days #60 tabs 05/22/18 07/31/24 History triamcinolone acetonide 55 mcg 2 spray intranasal DAILY PRN 12/07/18 Unknown History nasal spray aerosol (Nasacort) rhinitis gemfibrozil 600 mg tablet 600 mg PO BID #180 tabs 07/02/19 Unknown Rx dapagliflozin propanediol 10 mg 10 mg PO DAILY 05/14/20 Unknown History tablet (Farxiga) glimepiride 4 mg tablet 4 mg PO BID 08/08/23 Unknown History pravastatin 40 mg tablet 40 mg PO DAILY 08/08/23 07/31/24 History tizanidine 4 mg tablet 4 mg PO TID 04/04/24 Unknown History losartan 25 mg tablet 25 mg PO DAILY #90 tabs 06/11/24 Unknown Rx dicyclomine 20 mg tablet 20 mg PO BID 07/30/24 07/25/24 History dulaglutide 3 mg/0.5 mL 3 mg subcut 3XW 07/30/24 07/29/24 History subcutaneous pen injector (Trulicity) gabapentin 300 mg capsule 300 mg PO TID 07/30/24 Unknown History omeprazole 40 mg capsule,delayed 40 mg PO BID #60 caps 07/31/24 07/31/24 Rx release Allergy/AdvReac Type Severity Reaction Status Date / Time pollen extracts (pollens) Allergy Mild Other Verified 08/01/24 13:54 amoxicillin (From Augmentin) AdvReac Diarrhea Verified 08/01/24 13:54 clavulanic acid (From AdvReac Diarrhea Verified 08/01/24 13:54 Augmentin) Family History Father CAD (coronary artery disease) FROM [place] AGE 65 Mother Diabetes Surgical History Hx of colonoscopy Hx of left knee surgery Hx of tonsillectomy Hx of fusion of cervical spine History of penile implant (~09/2019) History of sinus surgery Social History household members: spouse and children current occupational status: employed current occupation: [employer] leisure activities: other Smoking Status: Never smoker alcohol intake: never substance use type: does not use caffeine: Yes Type: coffee Number of servings: 4 what type of physical activity do you participate in: bicycling Review of Systems (Anesthesia) ROS Narrative System reviewed and no additional complaints, except as documented. Physical Exam Const alert and oriented x3 Resp normal respiratory effort and normal air movement Cardio regular rate and regular rhythm Back/Spine normal ROM Neuro oriented x3 and moves all extremities
[2024-08-01 14:38] LABS: Bedside Glucose 124 mg/dL (74-106)
--- NOTE | 2024-08-01 15:30 | EGD_PTH ---
PATIENT: DUARTE MARRERO LOC: EN U#:[id number] AGE/SX: 53/M ROOM: RE08/01/[address]: Dr. Fede Bailey DO : 1970 BED: DIS: 08/01/2024 SPEC #: [id number] RECD: 08/02/24 08:44 STATUS: FERNANDA HONEY #: [id number] OMER: 08/01/24 15:[address]: Fede Bailey DEPT: SURGICAL PATHOLOGY RECD BY: Paulette Lau ENTERED: 08/02/24 10:43 SP TYPE: EGD BIOPSY NOY DR: Dr. Casey Valles MD Tissues: Duodenum, NOS Procedures: Surgery Specimen Level IV HEADER OPERATION: EGD PRE-OP DIAGNOSIS: Belching, bloating, nausea, abdominal pain TISSUE SUBMITTED: Duodenum biopsy MICROSCOPIC DIAGNOSIS Duodenum, biopsy: Fragments of duodenal mucosa, no pathologic diagnosis. A fragment of gastric mucosa with mild chronic inflammation. See comment. SJ.mr 08/03/2024 COMMENT Immunohistochemistry for H.pylori can be performed if clinically indicated. Please notify the laboratory if it is needed. MICROSCOPIC DESCRIPTION Slides are reviewed. GROSS DESCRIPTION Received in fixative is one container labeled with the patient's name and designated Duodenum biopsy. The specimen consists of multiple irregular fragments of light cedillo soft tissue that in aggregate measure 1.2 x 0.3 x 0.2 cm. The specimen is totally submitted in one cassette. 08/02/2024 TC:3 CPT:72558
--- NOTE | 2024-08-01 15:53 | OP.CCLET_ITS ---
08/01/2024 Casey Valles MD [address] [id number] Re : Upper GI endoscopy procedure for Tello Blue Dear Dr. Valles This procedure was performed on Thursday, August 01, 2024. My impressions and recommendations are as follows: Impressions : - Normal esophagus. - Small hiatal hernia. - Bile gastritis. Biopsied. - Erythematous duodenopathy. Biopsied. Recommendations : - Discharge patient to home. - Diabetic (ADA) diet. - Continue present medications. - Await pathology results. - Gastric emptying study My findings are described in the full procedure note, which is enclosed. If I can be of further assistance, please feel free to contact me at . Sincerely, Fede Bailey, 08/01/2024 3:53:07 PM This report has been signed electronically.
--- NOTE | 2024-08-01 15:53 | OP.EGD_ITS ---
Patient Name: Tello Blue Procedure Date: 08/01/2024 3:36 PM Date of : 1970 Age: 53 Procedure: Upper GI endoscopy Indications: Epigastric abdominal pain, Dyspepsia Providers: Fede Bailey DO Medicines: Monitored Anesthesia Care Patient Profile: This is a 53 year old male. Refer to note in patient chart for documentation of history and physical. Patient has symptoms of acute abdominal cramping, acute epigastric abdominal pain, acute dyspepsia, acute heartburn and acute nausea. Complications: No immediate complications. Procedure: Pre-Anesthesia Assessment: - Prior to the procedure, a History and Physical was performed, and patient medications and allergies were reviewed. The patient is competent. The risks and benefits of the procedure and the sedation options and risks were discussed with the patient. All questions were answered and informed consent was obtained. Patient identification and proposed procedure were verified by the physician in the pre-procedure area. Mental Status Examination: alert and oriented. Airway Examination: normal oropharyngeal airway and neck mobility. Respiratory Examination: clear to auscultation. CV Examination: normal. Prophylactic Antibiotics: The patient does not require prophylactic antibiotics. Prior Anticoagulants: The patient has taken no anticoagulant or antiplatelet agents except for NSAID medication. ASA Grade Assessment: II - A patient with mild systemic disease. After reviewing the risks and benefits, the patient was deemed in satisfactory condition to undergo the procedure. The anesthesia plan was to use monitored anesthesia care (MAC). Immediately prior to administration of medications, the patient was re-assessed for adequacy to receive sedatives. The heart rate, respiratory rate, oxygen saturations, blood pressure, adequacy of pulmonary ventilation, and response to care were monitored throughout the procedure. The physical status of the patient was re-assessed after the procedure. After obtaining informed consent, the endoscope was passed under direct vision. Throughout the procedure, the patient's blood pressure, pulse, and oxygen saturations were monitored continuously. The gastroscope was introduced through the mouth, and advanced to the second part of duodenum. The upper GI endoscopy was accomplished without difficulty. The patient tolerated the procedure well. Scope In: 3:46:01 PM Scope Out: 3:48:28 PM Total Procedure Duration Time 0 hours 2 minutes 27 seconds Findings: The examined esophagus was normal. A small hiatal hernia was present. Diffuse mild inflammation characterized by erythema was found in the gastric body. Biopsies were taken with a cold forceps for histology. Verification of patient identification for the specimen was done. Estimated blood loss was minimal. Biopsies were taken with a cold forceps for Helicobacter pylori testing. Verification of patient identification for the specimen was done. Estimated blood loss was minimal. Patchy mildly erythematous mucosa without active bleeding and with no stigmata of bleeding was found in the duodenal bulb. Biopsies were taken with a cold forceps for histology. Verification of patient identification for the specimen was done. Estimated blood loss was minimal. Impression: - Normal esophagus. - Small hiatal hernia. - Bile gastritis. Biopsied. - Erythematous duodenopathy. Biopsied. Recommendation: - Discharge patient to home. - Diabetic (ADA) diet. - Continue present medications. - Await pathology results. - Gastric emptying study Procedure Code(s): --- Professional --- 72028, Esophagogastroduodenoscopy, flexible, transoral; with biopsy, single or multiple CPT copyright 2021 [employer]. All rights reserved. The codes documented in this report are preliminary and upon sewer head review may be revised to meet current compliance requirements. Fede Bailey DO 08/01/2024 3:53:07 PM This report has been signed electronically. Number of Addenda: 0 Note Initiated On: 08/01/2024 3:36 PM
--- NOTE | 2024-08-01 15:56 | PCM.POST.ANE ---
Anesthesia: Postop Eval I Current Vital Signs Temperature: 97.4 F Pulse Rate: 81 Blood Pressure: 117/90 Respiratory Rate: 20 Pulse Ox: 95 Assessment Airway patent: Yes Spontaneous unlabored respirations: Yes nausea: No Vomiting: No Anesthesia Complication: No Fluid Hydration Crystalloid volume administer (ml): 30 Total IV fluid infused: 30 Progress Note Anesthesia document: Postop Eval 1 completed: Yes
--- NOTE | 2024-08-01 16:30 | POSTOPAN2_ITS ---
Anesthesia Postop Eval I Sum Postop Eval Completion status Anesthesia document: Postop Eval 1 completed: Yes Anesthesia Postop Eval I Summary Anesthesia Postop Eval I Summary: Anesthesia Postop Eval I: Assessment Summary Airway patent Yes 08/01/24 15:56 [email or web address] Spontaneous unlabored Yes 08/01/24 15:56 [email or web address] respirations Mental status nausea No 08/01/24 15:56 [email or web address] Vomiting No 08/01/24 15:56 [email or web address] Anesthesia Postop Eval I: Fluid Summary Crystalloid volume administer 30 08/01/24 15:56 [email or web address] (ml) Colloids volume administered ( ml) Blood Product volume administered (ml) Total IV fluid infused 30 08/01/24 15:56 [email or web address] Anesthesia Postop Eval I: Summary Notes Anesthesia Complication No 08/01/24 15:56 [email or web address] Anesthesia Complication Comment: Post-operative progress note Anesthesia: Postop Eval II Evaluation Mental status: Awake and Calm Pain Level: 0 nausea: No Vomiting: No Complications Anesthesia Complication: No
--- NOTE | 2024-08-01 16:30 | PCM.POSTANE2 ---
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 Anesthesia Postop Eval I: Fluid Summary Crystalloid volume administer 30 08/01/24 15:56 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
== END 2024-08-01 16:35 | disposition home or self-care (01) ==
LOC: EN 13:34 → AC 13:36
PROVIDERS: PCP Family Medicine; Referring Provider Family Medicine; Visit Provider Internal Medicine Gastroenterology
PROC: 0DJ08ZZ Inspection of Upper Intestinal Tract, Via Natural or Artificial Opening Endoscopic (ICD-10-PCS; CPT 43235; principal; 2024-08-01 15:25)
DX: K29.70 Gastritis, unspecified, without bleeding (principal); E11.9 Type 2 diabetes mellitus without complications; K21.9 Gastro-esophageal reflux disease without esophagitis; I10 Essential (primary) hypertension; Z79.85 Long-term (current) use of injectable non-insulin antidiabetic drugs; E78.5 Hyperlipidemia, unspecified; K44.9 Diaphragmatic hernia without obstruction or gangrene; K57.30 Diverticulosis of large intestine without perforation or abscess without bleeding; Z79.84 Long term (current) use of oral hypoglycemic drugs; R14.2 Eructation; K76.0 Fatty (change of) liver, not elsewhere classified; R14.0 Abdominal distension (gaseous); Z86.16 Personal history of COVID-19; Z98.1 Arthrodesis status
CPT/HCPCS: 43239; 82962; 88305; A4216

== ENCOUNTER → 2024-08-08 | Outpatient (CLI) | payer OTHER, SELFPAY ==
[2024-08-08 08:15] LABS: Protein, Urine (Random) 58.8 mg/dL (<11.9); Protein:Creat Ratio 535 mg/g CRE (0-200)
[2024-08-08 08:26] LABS: ALB/GLOB Ratio 0.9 RATIO (0.9-2.4); AST(SGOT) 33 U/L (15-37); Alanine Aminotransfer ALT/SGPT 37 U/L (16-61); Albumin, Serum 3.8 g/dL (3.2-5.0); Alkaline Phosphatase 80 U/L (45-117); Anion Gap 10 (5-15); BUN 13 mg/dL (7-18); BUN/Creat Ratio 12.4 RATIO (10-20); Calcium,Total 9.2 mg/dL (8.5-10.1); Chloride 105 mmol/L (98-107); Cholesterol 180 mg/dL (200); Creatinine, Serum 1.05 mg/dL (0.70-1.30); EST Glomerular Filtration Rate 78 mL/min (>60); Est Glom Filt Rate - Afr Amer 94 mL/min (>60); Globulin 4.1 g/dL (2.2-4.2); Glucose 137 mg/dL (74-106); High Density Lipoprotein 49 mg/dL; Potassium 3.7 mmol/L (3.5-5.1); Protein, Total 7.9 g/dL (6.4-8.2); Sodium Level 141 mmol/L (136-145); Triglycerides 99 mg/dL; Very Low Density Lipoprotein 20 mg/dL (5-40)
== END | disposition home or self-care (01) ==
LOC: LAB 07:10
PROVIDERS: PCP Family Medicine; Referring Provider Family Medicine; Visit Provider Family Medicine
DX: E11.9 Type 2 diabetes mellitus without complications (principal)
CPT/HCPCS: 36415; 80053; 80061; 82570; 84156

== ENCOUNTER 2024-08-12 09:49 | Emergency (ER) | payer OTHER, SELFPAY ==
[2024-08-12 09:50] VITALS: BP 116/95; PULSE 84; RESP 18; TEMP 36.7; O2SAT 97; BMI 28.0
--- NOTE | 2024-08-12 10:27 | EDS_ITS ---
HPI History of Present Illness Chief Complaint: Shortness of Breath Informant: patient Onset/Context/Timing Onset: Days (5) Context: gradual Timing: Continuous Quality: Positive for Orthopnea Worsened by: Lying flat Relieved by: Nothing Associated Symptoms cough; Negative for rhinorrhea, ear pain, fever, sore throat, chills, sweats, clear sputum, white sputum, yellow sputum or green sputum Chest Pain: Positive for None Narrative Narrative: Patient presents with cough and shortness of breath that has been getting worse over the past 5 days. Patient states that he checked his pulse oximeter at home and it was between 88 and 92. Patient states he was recently diagnosed with influenza A. Patient states his breathing is worse when he lays flat. Patient states nothing makes it better. Patient admits to a cough but denies any sputum production. Patient states he did have some fevers and chills earlier this week but these have resolved. Patient denies any chest pain. Patient does admit to some diarrhea but denies any nausea or vomiting. [facility] Medical History Hemorrhoid IBS (irritable bowel syndrome) Hypogonadism Essential hypertension Depression Anxiety History of steroid therapy Diabetes Arthritis High cholesterol History of hiatal hernia History of IBS Non-smoker On home oxygen therapy Leg cramps History of echocardiogram History of echocardiogram Cardiology follow-up encounter GI bleeding COVID Alcohol abuse GERD (gastroesophageal reflux disease) CPAP (continuous positive airway pressure) dependence Sleep apnea Pneumonia due to 2019 novel coronavirus Psoriatic arthritis Right bundle branch block Hypertension Hyperlipidemia Type 2 diabetes mellitus without complications Home Medications ?Medication ?Instructions ?Recorded ?Last Taken ?Type metformin 1,000 mg tablet 1,000 mg PO DAILY 30 days #6 0 tabs 05/22/18 07/31/24 H istory triamcinolone acetonide 55 mcg 2 spray intranasal MAYDA Y PRN 12/07/18 Unknown History nasal spray aerosol (Nasacort) rhinitis gemfibrozil 600 mg tablet 600 mg PO BID #180 tabs 06/11 09/26 Unknown Rx dapagliflozin propanediol 10 mg 10 mg PO DAILY 0 Unknown History tablet (Farxiga) glimepiride 4 mg tablet 4 mg PO BID 08/08/23 Unknown History pravastatin 40 mg tablet 40 mg PO DAILY 08/08/2307/12 History tizanidine 4 mg tablet 4 mg PO TID 04/04/24 Unknown History losartan 25 mg tablet 25 mg PO DAILY #90 tabs 09/03 Unknown Rx dicyclomine 20 mg tablet 20 mg PO BID 07/30/24 History dulaglutide 3 mg/0.5 mL 3 mg subcut 3XW 07/30/24 History subcutaneous pen injector (Trulicity) gabapentin 300 mg capsule 300 mg PO TID 07/30/24 Unkno wn History omeprazole 40 mg capsule,delayed 40 mg PO BID #60 caps 07/31/24 07/31/24 Rx release Allergy/AdvReac Type Severity Reaction Status Date / Time pollen extracts (pollens) Allergy Mild Other Verified 08/01/24 13:54 amoxicillin (From Augmentin) AdvReac Diarrhea Verified 08/01/24 13:54 clavulanic acid (From AdvReac Diarrhea Verified 08/01/24 13:54 Augmentin) Family History Father CAD (coronary artery disease) FROM [place] AGE 65 Mother Diabetes Surgical History Hx of colonoscopy Hx of left knee surgery Hx of tonsillectomy Hx of fusion of cervical spine History of penile implant (~09/2019) History of sinus surgery Social History household members: spouse and children current occupational status: employed current occupation: [employer] leisure activities: other Smoking Status: Never smoker alcohol intake: never substance use type: does not use caffeine: Yes Type: coffee Number of servings: 4 what type of physical activity do you participate in: bicycling ROS ROS ED Constitutional Constitutional ED: Denies chills or fever(s) Eyes Eyes: Denies blurry vision or change in vision ENT ENT ED: Denies rhinorrhea or sore throat Cardiovascular Cardiovascular: Denies chest pain or palpitations Respiratory/Chest Respiratory/Chest: Reports cough; Denies dyspnea Gastrointestinal Gastrointestinal: Reports diarrhea; Denies nausea or vomiting Genitourinary Genitourinary ED: Denies dysuria or hematuria Musculoskeletal Musculoskeletal: Denies back pain or neck pain Integumentary Denies abscess or rash Neurologic Neurologic: Denies headache(s) or weakness Allergic/Immunologic Allergic/Immunologic ED: Denies mouth swelling or urticaria EXAM Physical Exam Const Vital Signs: 08/12/24 09:50 08/12/24 10:37 08/12/24 10:40 Temperature 98.1 F Temperature Source Temporal Pulse Rate 84 65 Respiratory Rate 18 16 Respiratory Effort Short of Breath Respiratory Depth Normal Respiratory Pattern Normal Blood Pressure 116/95 H Blood Pressure Mean 102 Pulse Ox 97 Oxygen Delivery Method Room Air Room Air 08/12/24 10:52 Temperature 98.4 F Temperature Source Temporal Pulse Rate 85 Respiratory Rate 20 H Respiratory Effort Respiratory Depth Respiratory Pattern Blood Pressure 125/91 H Blood Pressure Mean 102 Pulse Ox 92 Oxygen Delivery Method Room Air Positive well nourished and well developed General Appearance ED: well developed and NAD HEENT Reports moist mucous membranes atraumatic Neck supple and no JVD Resp normal respiratory effort Auscultation: wheezes expiratory wheezes (Mild) Cardio regular rate and regular rhythm GI non-tender and non-distended Palpation: soft Neuro oriented x3, CN's II-XII intact bilaterally and no sensory deficits noted Augusto Coma Scale: document GCS findings Spontaneous Obeys Commands Oriented 15 Sensorium / Orientation: alert Speech: speech normal Motor Exam: strength 5/5 throughout Psych mental status grossly normal MDM MDM MDM Narrative Medical decision making narrative: Differential diagnosis includes pneumonia, bronchitis, and viral illness. CBC will be obtained to assess for leukocytosis and anemia. Basic metabolic profile will be obtained to assess for electrolyte abnormality and renal function. Chest x-ray will be obtained to assess for pneumonia and bronchitis. Lab Data Attestation: I reviewed the patient's lab results. Lab results narrative: CBC was reviewed. White blood cell count was slightly low at 3.3. There is a lymphocytic shift. Basic metabolic profile was reviewed. Glucose was elevated to 43. The remainder is within normal limits. Labs: Laboratory Results - last 24 hr 08/12/24 10:34 WBC 3.3 L RBC 4.52 L Hgb 15.0 Hct 44.4 MCV 98.2 H MCH 33.2 H MCHC 33.8 RDW Std Deviation 45.2 H RDW Coeff of Hernán 12.6 Plt Count 161 MPV 10.0 Immature Gran % (Auto) 0.600 Neut % (Auto) 44.1 L Lymph % (Auto) 42.9 H Sargent % (Auto) 9.7 Eos % (Auto) 1.8 Baso % (Auto) 0.9 Absolute Neuts (auto) 1.5 L Absolute Lymphs (auto) 1.42 Nucleated RBC % 0 Sodium 140 Potassium 3.5 Chloride 105 Carbon Dioxide 28.0 Anion Gap 7 BUN 11 Creatinine 0.91 Estim Creat Clear Calc 96.79 Est GFR (MDRD) Af Amer 111 Est GFR (MDRD) Non-Af 92 BUN/Creatinine Ratio 12.1 Glucose 243 H Calcium 8.7 Radiography Chest X-Ray - ED: 2 View, Read by ED Physician, Read by Radiologist and Right Infiltrate Diagnostic Testing: Clinical Impression(s) from Imaging Studies Chest X-Ray 08/12/24 10:45 IMPRESSION: Airspace disease in the right lung as above. Reading Location: [facility] PA and lateral chest x-ray was obtained. There are 2 views. On my independent interpretation, lung colvin show streaky opacities in the right upper lung field. There is normal cardiac silhouette. Bony thorax is normal. Radiologist also interpreted the x-ray and agrees. Treatment and Re-Evaluation :: Patient was given a DuoNeb aerosol here. Findings are consistent with viral illness. Since patient was recently diagnosed with influenza A, this is likely the etiology. Patient is outside the window for Tamiflu. Patient was instructed to continue with Tylenol and ibuprofen as needed for any fevers. Patient was instructed to drink any fluids. Patient was given a prescription for an albuterol inhaler. Patient was instructed to follow-up with his primary care physician in 5 to 7 days. Patient understood and was agreeable with the plan. All questions were answered. Discharge Plan Triage Chief Complaint: Shortness of Breath ED Provider: David Fitzgerald Dx/Rx/DC Orders Clinical Impression: Influenza A, Essential hypertension Instructions: ED Influenza (Adult) Prescriptions: No Action metformin 1,000 mg tablet 1,000 mg PO DAILY 30 Days Qty: 60 Patient Comments: triamcinolone acetonide [Nasacort] 55 mcg aerosol,spray 2 spray INTRANASAL DAILY PRN (Reason: rhinitis) Farxiga 10 mg tablet 10 mg PO DAILY gemfibrozil 600 mg tablet 600 mg PO BID Qty: 180 3RF glimepiride 4 mg tablet 4 mg PO BID Patient Comments: TAKE 1 TABLET BY MOUTH TWICE A DAY pravastatin 40 mg tablet 40 mg PO DAILY Patient Comments: TAKE 1 TABLET BY MOUTH EVERY DAY tizanidine 4 mg tablet 4 mg PO TID gabapentin 300 mg capsule 300 mg PO TID dicyclomine 20 mg tablet 20 mg PO BID omeprazole 40 mg capsule,delayed release(DR/EC) 40 mg PO BID Qty: 60 1RF Trulicity 3 mg/0.5 mL pen injector 3 mg subcut 3XW losartan 25 mg tablet 25 mg PO DAILY Qty: 90 3RF Primary Care Provider: Casey Valles Referrals: Casey Valles MD [Primary Care Provider] - 5-7 Days Print Language: Irish Disposition Disposition: Home, Self Care
[2024-08-12 10:37] VITALS: O2SAT 94
[2024-08-12] MEDS: Ipratropium/Albuterol Sulfate 3 ML AMPUL.NEB INHALATION (10:38)
[2024-08-12 10:40] VITALS: PULSE 65; RESP 16
--- NOTE | 2024-08-12 10:45 | RAD_ITS ---
PROCEDURE: CHEST PA AND LATERAL REASON FOR EXAM: Cough TECHNIQUE: Single frontal image including the chest and abdomen. COMPARISON: None. FINDINGS: The cardiothymic contour is normal. Streaky airspace opacities in the right upper lung zone are nonspecific. Correlate for pneumonia. Bowel gas pattern is normal. No evidence of bowel obstruction or free air. The bones are unremarkable. No radiopaque foreign body is identified. RAD/Chest PA and Lateral IMPRESSION: Airspace disease in the right lung as above. Reading Location: [facility]
[2024-08-12 10:48] LABS: Absolute Lymphocyte Count 1.42 X10^3/uL (0.83-4.51); Absolute Neutrophil Count 1.5 X10^3/uL (2.0-7.7); Basophil# 0.03 X10^3/uL; Basophil% 0.9 % (0-1); Eosinophil# 0.06 X10^3/uL; Eosinophils% 1.8 % (0-5); Hematocrit 44.4 % (40-54); Lymphocyte # 1.42 X10^3/ul (0.83-4.51); Lymphocyte % 42.9 % (19-41); Mean Corp Hgb Conc 33.8 g/dL (32-36); Mean Corpuscular Hgb 33.2 pg (27.0-32.0); Mean Corpuscular Volume 98.2 fL (80-94); Monocyte# 0.32 X10^3/uL; Monocyte% 9.7 % (0-10); NRBC Flagged by Analyzer 0 % (0-5); Neutrophil # 1.46 X10^3/uL (2.7-7.7); Neutrophil % 44.1 % (47-70); POSITIVE MORPHOLOGY YES; Platelet Count 161 K/mm3 (150-450); RBC Distribution Width CV 12.6 % (11.6-14.6); RBC Distribution Width SD 45.2 fl (35.1-43.9); Red Blood Count 4.52 M/mm3 (4.6-6.2); White Blood Count 3.3 K/mm3 (4.4-11.0)
[2024-08-12 10:52] VITALS: BP 125/91; PULSE 85; RESP 20; TEMP 36.9; O2SAT 92
[2024-08-12 10:52] LABS: Differential Indicated SCAN CRITERIA MET
[2024-08-12 10:55] LABS: Anion Gap 7 (5-15); BUN 11 mg/dL (7-18); BUN/Creat Ratio 12.1 RATIO (10-20); Calcium,Total 8.7 mg/dL (8.5-10.1); Chloride 105 mmol/L (98-107); Creatinine, Serum 0.91 mg/dL (0.70-1.30); EST Glomerular Filtration Rate 92 mL/min (>60); Est Glom Filt Rate - Afr Amer 111 mL/min (>60); Estimated Creatinine Clearance 96.79 ml/min; Glucose 243 mg/dL (74-106); Potassium 3.5 mmol/L (3.5-5.1); Sodium Level 140 mmol/L (136-145)
[2024-08-12 11:00] VITALS: BP 124/83; PULSE 78; RESP 20; O2SAT 91
[2024-08-12 11:31] LABS: Platelet Estimate A (ADEQ)
[2024-08-12 11:33] LABS: Reactive Lymphocyte 2+
[2024-08-12 11:50] VITALS: BP 115/92; PULSE 84; RESP 11; TEMP 36.6; O2SAT 95
== END 2024-08-12 12:02 | disposition home or self-care (01) ==
PROVIDERS: Emergency Provider Emergency Medicine; PCP Family Medicine; Visit Provider Emergency Medicine
DX: J10.1 Influenza due to other identified influenza virus with other respiratory manifestations (principal); E11.9 Type 2 diabetes mellitus without complications; I10 Essential (primary) hypertension; E78.00 Pure hypercholesterolemia, unspecified
CPT/HCPCS: 71046; 80048; 85025; 94640; 99284; A4216

== ENCOUNTER → 2024-08-14 | Outpatient (CLI) | payer OTHER, SELFPAY ==
--- NOTE | 2024-08-14 07:26 | US_ITS ---
EXAM: US Abdomen Complete CLINICAL INDICATION: TECHNIQUE: Real-time ultrasound of the abdomen with image documentation. COMPARISON: No relevant prior studies available. FINDINGS: LIVER: Fatty infiltration of the liver. Liver measures up to 16.6 cm. Hepatopetal portal flow in main portal vein. No intrahepatic bile duct dilation. GALLBLADDER: Unremarkable. No gallstones. COMMON BILE DUCT: Unremarkable as visualized. No stones. No dilation. Common bile duct measures 0.28 cm in diameter. PANCREAS: Unremarkable as visualized. KIDNEYS: Unremarkable. No stones. No hydronephrosis. The right kidney measures 10.3 x 5.9 x 5.3 cm. The left kidney measures 10.6 x 5.8 x 6.0 cm. SPLEEN: Spleen measures up to 10.3 cm. AORTA: Unremarkable. No aneurysm. INFERIOR VENA CAVA: Unremarkable. US/Abdomen Complete IMPRESSION: Fatty infiltration of the liver. Reading [facility]
== END | disposition home or self-care (01) ==
LOC: US 07:20
PROVIDERS: PCP Family Medicine; Referring Provider Nurse Practitioner Acute Care; Visit Provider Nurse Practitioner Acute Care
DX: R14.2 Eructation (principal); R14.0 Abdominal distension (gaseous); R11.0 Nausea; R10.13 Epigastric pain
CPT/HCPCS: 76700

== ENCOUNTER → 2024-09-01 | Outpatient (CLI) | payer OTHER, SELFPAY ==
[2024-09-01 08:56] LABS: ALB/GLOB Ratio 1.1 RATIO (0.9-2.4); AST(SGOT) 16 U/L (15-37); Alanine Aminotransfer ALT/SGPT 30 U/L (16-61); Albumin, Serum 3.8 g/dL (3.2-5.0); Alkaline Phosphatase 70 U/L (45-117); Anion Gap 7 (5-15); BUN 14 mg/dL (7-18); BUN/Creat Ratio 14.1 RATIO (10-20); Calcium,Total 8.8 mg/dL (8.5-10.1); Chloride 108 mmol/L (98-107); Cholesterol 174 mg/dL (200); Creatinine, Serum 0.99 mg/dL (0.70-1.30); EST Glomerular Filtration Rate 83 mL/min (>60); Est Glom Filt Rate - Afr Amer 101 mL/min (>60); Globulin 3.6 g/dL (2.2-4.2); Glucose 182 mg/dL (74-106); High Density Lipoprotein 40 mg/dL; Potassium 3.7 mmol/L (3.5-5.1); Protein, Total 7.4 g/dL (6.4-8.2); Sodium Level 140 mmol/L (136-145); Triglycerides 188 mg/dL; Very Low Density Lipoprotein 38 mg/dL (5-40)
[2024-09-01 10:26] LABS: Microalbumin,Random Urine 11.6 mg/L (NO RANGE EST.); Microalbumin:Creatinine Ratio 11.7 mg/g CRE (<30 mg/g CRE)
[2024-09-02 09:07] LABS: Hepatitis A AB, Total Negative (Negative); Hepatitis B Core Ab Total Negative (Negative)
[2024-09-03 08:31] LABS: Hepatitis B Surface Antibody Non-Reactive; Hepatitis B Surface Antigen Non-Reactive (Nonreactive); Hepatitis C Antibody Non-Reactive (Nonreactive)
== END | disposition home or self-care (01) ==
PROVIDERS: Nurse Practitioner Acute Care; PCP Family Medicine; Referring Provider Family Medicine; Visit Provider Family Medicine
DX: E11.9 Type 2 diabetes mellitus without complications (principal); R10.13 Epigastric pain; K76.0 Fatty (change of) liver, not elsewhere classified
CPT/HCPCS: 36415; 80053; 80061; 82043; 82570; 86704; 86706; 86708; 86803; 87340

== ENCOUNTER → 2024-11-06 | Outpatient (CLI) | payer OTHER, SELFPAY ==
[2024-11-06 15:39] LABS: Absolute Lymphocyte Count 1.83 X10^3/uL (0.83-4.51); Absolute Neutrophil Count 3.7 X10^3/uL (2.0-7.7); Basophil# 0.04 X10^3/uL; Basophil% 0.6 % (0-1); Eosinophil# 0.12 X10^3/uL; Eosinophils% 1.9 % (0-5); Hematocrit 44.4 % (40-54); Hemoglobin 15.3 g/dL (13.0-16.5); Lymphocyte # 1.83 X10^3/ul (0.83-4.51); Lymphocyte % 28.7 % (19-41); Mean Corp Hgb Conc 34.5 g/dL (32-36); Mean Corpuscular Hgb 34.2 pg (27.0-32.0); Mean Corpuscular Volume 99.3 fL (80-94); Mean Platelet Vol. 9.9 fl (6.2-12.0); Monocyte# 0.62 X10^3/uL; Monocyte% 9.7 % (0-10); NRBC Flagged by Analyzer 0 % (0-5); Neutrophil # 3.74 X10^3/uL (2.7-7.7); Neutrophil % 58.6 % (47-70); Platelet Count 234 K/mm3 (150-450); RBC Distribution Width CV 12.8 % (11.6-14.6); RBC Distribution Width SD 46.3 fl (35.1-43.9); Red Blood Count 4.47 M/mm3 (4.6-6.2); White Blood Count 6.4 K/mm3 (4.4-11.0)
[2024-11-06 16:20] LABS: CRP < 3.00 mg/L (0.0-3.0); Rheumatoid Factor < 10.0 IU/mL (<15); Uric Acid 3.7 mg/dL (3.5-7.2)
[2024-11-06 18:10] LABS: Erythrocyte Sedimentation Rate 10 mm/hr (0-20)
[2024-11-08 12:08] LABS: ANTINUCLEAR ANTIBODIES DIRECT Negative (Negative)
== END | disposition home or self-care (01) ==
LOC: LAB 14:45
PROVIDERS: PCP Family Medicine; Referring Provider Student in an Organized Health Care Education/Training Program; Visit Provider Student in an Organized Health Care Education/Training Program
DX: M19.041 Primary osteoarthritis, right hand (principal)
CPT/HCPCS: 36415; 84550; 85025; 85652; 86038; 86140; 86431

== ENCOUNTER → 2025-02-21 | Outpatient (CLI) | payer OTHER, SELFPAY ==
[2025-02-21 16:36] LABS: AST(SGOT) 26 U/L (<=37); Alanine Aminotransfer ALT/SGPT 26 U/L (<=46); Albumin, Serum 4.9 g/dL (3.5-5.0); Alkaline Phosphatase 70 U/L (40-129); Anion Gap 15 (5-15); BUN 18 mg/dL (4-19); BUN/Creat Ratio 15.7 RATIO (10-20); Calcium,Total 9.7 mg/dL (7.6-11.0); Carbon Dioxide 23.6 mmol/L (21.0-32.0); Chloride 102 mmol/L (98-108); Globulin 2.8 g/dL (2.2-4.2); Glucose 84 mg/dL (70-99); Potassium 4.0 mmol/L (3.3-5.1)
[2025-02-21 16:53] LABS: Creatinine, Urine (random) 199.00 mg/dL (39.00-259.00); Microalbumin,Random Urine 39.1 mg/L (<20 mg/L)
[2025-02-21 16:57] LABS: Cholesterol 140 mg/dL (<=200); Low Density Lipoprotein Calc. 76 mg/dL; Triglycerides 84 mg/dL; Very Low Density Lipoprotein 17 mg/dL (5-40); cholesterol:hdl ratio screen 2.97
== END | disposition home or self-care (01) ==
LOC: LAB 15:20
PROVIDERS: PCP Family Medicine; Referring Provider Family Medicine; Visit Provider Family Medicine
DX: E11.9 Type 2 diabetes mellitus without complications (principal)
CPT/HCPCS: 36415; 80053; 80061; 82043; 82570